=== PATIENT | male | born 1970 | race Asian ===

== ENCOUNTER 2018-09-26 13:55 | Day surgery (SDC) | payer OTHER, SELFPAY ==
[2018-09-26] VITALS (9 sets, daily range): BP systolic 98–133; BP diastolic 69–90; PULSE 63–83; RESP 10–19; TEMP 36.6–36.8; O2SAT 95–99; BMI 24.3
[2018-09-26] MEDS: SODIUM CHLORIDE 0.9% 1,000 ML 200 ML IV (14:14)
--- NOTE | 2018-09-26 14:39 | P.HP_ITS ---
History of Present Illness Date Patient Seen: 09/26/18 Time Patient Seen: 14:37 Chief complaint: 28133 SCREENING COLONOSCOPY Narrative: Naeem is pleasant 48-year-old gentleman who is well known to me from past counters. In March of 2017 he had a colonoscopy that revealed of right cecal mass and an additional cecal polyp. He subsequently underwent a right hemicolectomy and primary anastomosis followed by a liver resection for a solitary metastasis. He has since been taking chemotherapy and tolerating it reasonably well. His reports that he is down to an every other week infusion. He denies any problems with the prep. He reports that his 's ? crazy driving? caused him to throw up on the way here. He says his weight is stable. He is suffering with some neuropathy symptoms following chemotherapy. Patient History Family & Social History Family History: Reviewed 09/26/18 by Anayeli Powell MD Social History: household members spouse Meds Home Medications Medication Instructions Recorded Confirmed Type melatonin 5 mg PO HS #0 06/02/17 09/26/18 History nicotine 14 mg TOPICAL QDAY #30 patch 02/21/18 09/26/18 Rx oxycodone 1 tab PO Q4HP PRN 07/26/18 09/26/18 History lorazepam 0.5 mg PO Q6HP PRN 08/30/18 09/26/18 History Allergies Allergy/AdvReac Type Severity Reaction Status Date / Time No Known Drug Allergies Allergy Verified 03/07/18 15:04 Review of Systems Review of Systems All systems reviewed & are unremarkable except as noted in HPI and below Exam Vital Signs (past 8 hours): - 09/26/18 14:06 Temperature 98.0 F Pulse Rate 70 Respiratory Rate 16 Blood Pressure 133/90 Pulse Oximetry 99 Oxygen Delivery Method Room Air Narrative Exam Narrative: Pleasant thin gentleman in no obvious distress HEENT: Normocephalic and atraumatic, pupils equal round reactive to light accommodation with anicteric sclera Lungs: Clear bilaterally Heart: Regular rate and rhythm Abdomen: Soft, multiple healed surgical incisions. Active bowel sounds Extremities: Warm well perfused Assessment & Plan Plan: Assessment/Plan Narrative: Personal history of colon cancer 1 year ago who presents for screening/ surveillance colonoscopy. We discussed the risks and benefits of the procedure the patient expressed a desire to complete it today.
[2018-09-26] MEDS: MIDAZOLAM 5 MG/5 ML VIAL IV (14:56)
[2018-09-26] MEDS: fentaNYL 250 MCG/5 ML INJ IV (14:56)
--- NOTE | 2018-09-26 15:03 | PM.OP.1 ---
Operative Date/Time/Diagnoses Date of procedure: 09/26/18 Time of procedure: 15:03 Pre-op diagnosis: Personal history of colon cancer Post-op diagnosis: same Procedure & Clinicians Procedure: Colonoscopy to the right upper quadrant ileocolic anastomosis Same procedure as scheduled: Yes Indications: Last colonoscopy approximately 18 months ago Surgeon: Anayeli Powell Anesthesia Type: Sedation (Versed 6 mg; fentanyl 200 mcg) Operative Notes Findings: 1. Excellent prep 2. No polyps or mass lesions 3. No AV malformations 4. Anastomosis identified at the hepatic flexure. No evidence of any recurrence. Anastomosis is in good repair and widely patent. 5. Tortuous transverse colon 6. Very minimal sigmoid diverticulosis 7. Grade 1-2 internal hemorrhoids Closure Type: not applicable Specimen(s): none sent Procedure in detail: After obtaining informed consent, the patient was brought to the GI suite and placed in the left lateral decubitus position on the examination table. After placement of appropriate monitors, the patient was given incremental doses of Versed and Fentanyl until an appropriate level of sedation was achieved. A time out was held per SCOAP protocol. A digital rectal examination was performed and did not reveal any masses or obstructing lesions. The colonoscope was gently passed into the patient's anus and the entire colon navigated to the level of the ileocolic anastomosis with minimal difficulty. Once in the anastomosis had been reached and identified clearly, the scope was withdrawn being sure to go before and beyond all mucosal folds and prominences and get an excellent examination. The findings are noted above. At the level of the rectal vault, the scope was retroflexed and the internal anal canal was examined. The scope was straightened and air aspirated from the colon. The instrument was removed from the patient's body and the procedure was concluded. The patient was allowed to awaken from sedation without difficulty and taken to the post-anesthesia care unit in good condition. Total sedation time was 16 min Total withdrawal time was 8 min 14 sec Complications: none Condition: stable Disposition: PACU Plan for aftercare: 1. Discharge to home 2. Repeat colonoscopy in 1 year.
== END 2018-09-26 16:12 | disposition home or self-care (01) ==
PROVIDERS: Visit Provider Surgery
PROC: 0DJD8ZZ Inspection of Lower Intestinal Tract, Via Natural or Artificial Opening Endoscopic (ICD-10-PCS; CPT 45378; principal; 2018-09-26 14:45)
DX: Z85.038 Personal history of other malignant neoplasm of large intestine (principal); K57.30 Diverticulosis of large intestine without perforation or abscess without bleeding; K64.1 Second degree hemorrhoids
CPT/HCPCS: 45378; 99152; J2250; J3010

== ENCOUNTER → 2019-02-21 09:37 | Outpatient (CLI) | payer OTHER, SELFPAY | DX: C18.9 Malignant neoplasm of colon, unspecified (principal) ==

== ENCOUNTER → 2019-02-27 08:28 | Outpatient (CLI) | payer OTHER, SELFPAY ==
[2019-02-27 08:57] LABS: Add Manual Diff / Slide Review NO; Basophils Absolute Auto 200 /uL (0-100); Basophils Percent Auto 2.5 % (0-2); Eosinophils Absolute Auto 200 /uL (0-450); Eosinophils Percent Auto 2.8 % (2-4); Hematocrit 39.5 % (41-53); Hemoglobin 13.2 g/dL (13.5-17.5); Lymphocytes Absolute Auto 2300 /uL (1100-4500); Lymphocytes Percent Auto 36.7 % (25-40); Mean Corpuscular HGB Conc 33.5 % (30-36); Mean Corpuscular Hemoglobin 29.2 PG (26-34); Mean Corpuscular Volume 87.3 fL (80-100); Monocytes Absolute Auto 400 /uL (0-900); Monocytes Percent Auto 6.3 % (3-14); Neutrophils Absolute Auto 3300 /uL (1500-7000); Neutrophils Percent Auto 51.7 % (50-75); Platelet Count 127 X10^3/uL (150-400); Red Blood Cell Count 4.53 X10^6/uL (4.5-5.9); Red Cell Distribution Width 13.3 % (11.6-14.8); White Blood Cell Count 6.3 X10^3/uL (4.5-11.0)
[2019-02-27 09:12] LABS: Alanine Aminotransferase 23 IU/L (21-72); Albumin 4.2 g/dL (3.5-5.0); Albumin Globulin Ratio 1.7 (1.0-2.8); Alkaline Phosphatase 43 U/L (38-126); Aspartate Aminotransferase 28 IU/L (17-59); BUN Creatinine Ratio 17.3 (6-22); Bilirubin Total 0.5 mg/dL (0.2-1.3); Blood Urea Nitrogen 19 mg/dL (9-20); Calcium 8.7 mg/dL (8.4-10.2); Carbon Dioxide 24 mmol/L (22-32); Chloride 105 mmol/L (98-107); Estimated Glomerular Filt Rate > 60.0 mL/min (>60); Globulin 2.5 g/dL (1.7-4.1); Glucose 87 mg/dL (70-100); HEMOLYSIS < 15 (0-50); Potassium 4.4 mmol/L (3.4-5.1); Sodium 137 mmol/L (137-145); Total Protein 6.7 g/dL (6.3-8.2)
[2019-02-27 09:42] LABS: Carcinoembryonic Antigen 3.4 ng/mL (0.1-3.0)
--- NOTE | 2019-02-27 09:56 | DI.CT.S_ITS ---
PROCEDURE: CT CHEST ABD PEL W CON INDICATIONS: surveillance for stage 4 colon cancer TECHNIQUE: After the administration of oral and intravenous contrast, 5 mm thick sections acquired from the lung apices to the symphysis. 5 mm coronal and sagittal reformats were performed, with additional 7 mm coronal MIP reformats through the lungs. For radiation dose reduction, the following was used: automated exposure control, adjustment of mA and/or kV according to patient size. COMPARISON: [facility], [place], KIDNEY/ URETER/BLADDER, 03/22/2017, 19:02. [facility], [place], PET NECK TO MID THIGH STD, 04/12/2017, 9:41. [facility], [place], ABDOMEN WITH CONTRAST, 06/29/2017, 10:46. FINDINGS: Image quality: Excellent. CHEST: Lungs and pleura: No acute airspace opacities. No pleural effusions or pneumothorax. Central and peripheral airways appear patent and normal in caliber. Mediastinum: Heart size is normal. No pericardial effusion. No mediastinal or hilar adenopathy by size criteria. Thoracic aorta and central pulmonary arteries are normal in size. Esophagus is normal in caliber. No hiatal hernia. Chest wall: No axillary or supraclavicular adenopathy by size criteria. Thyroid gland is normal. ABDOMEN: Solid organs: There are surgical clips/or coil within the liver near the hepatic dome and the gallbladder fossa where 2 hepatic masses were visualized on the last exam, compatible with posttreatment changes. A tiny 3 mm indeterminate hypodensity is noted in the right hepatic lobe (series 2 image 70). Liver is normal in size and enhancement. Gallbladder is normal. Biliary system is non dilated. Pancreas enhances normally. Spleen is normal in size and enhancement. No adrenal nodules. Kidneys demonstrate normal size and enhancement, without hydronephrosis. Peritoneum and bowel: There is partial right colectomy. Scattered colonic diverticula are seen in the left colon. Bowel loops demonstrate normal wall thickness and caliber. No free fluid or air. Nodes and vessels: No retroperitoneal or mesenteric adenopathy by size criteria. Aorta and inferior vena cava are normal in size. Miscellaneous: No ventral hernias. PELVIS: Genitourinary: Bladder wall thickness is normal. Miscellaneous: No inguinal hernias or adenopathy. Bones: No suspicious bony lesions. No vertebral body compression fractures. IMPRESSION: 1. Posttreatment changes in liver. 2. There is a tiny 3 mm indeterminate hypodensity in the right hepatic lobe (series 2 image 70), not definitively visualized on the last exam. Differential diagnoses include a small hepatic cyst, hemangioma or metastatic disease. Please correlate with markers. If there is clinical suspicion for recurrent colon cancer metastasis, MRI is recommended. 3. Right hemicolectomy. 4. Mild diverticulosis without acute diverticulitis. Dictated by: Gilda Martins M.D. on 02/27/2019 at 12:54 Approved by: Gilda Martins M.D. on 02/27/2019 at 17:50
== END ==
DX: C18.9 Malignant neoplasm of colon, unspecified (principal); R16.0 Hepatomegaly, not elsewhere classified; K57.30 Diverticulosis of large intestine without perforation or abscess without bleeding
CPT/HCPCS: 36415; 71260; 74177; 80053; 82378; 85025; Q9967

== ENCOUNTER 2019-07-05 11:47 | Emergency (ER) | payer OTHER, SELFPAY ==
[2019-07-05 11:54] VITALS: BP 137/88; PULSE 84; RESP 14; TEMP 36.7; O2SAT 98; BMI 24.3
--- NOTE | 2019-07-05 11:59 | DI.RAD.S_ITS ---
PROCEDURE: XR CALCANEOUS RT MIN 2V INDICATIONS: pain TECHNIQUE: Two views of the calcaneus were acquired. COMPARISON: None. FINDINGS: Bones: Irregularity and lucency in the posterior calcaneus has the appearance of a subacute or chronic comminuted fracture. No suspicious bony lesions. Soft tissues: No suspicious calcifications. Achilles tendon appears normal. IMPRESSION: Probable subacute or chronic comminuted calcaneal fracture. Dictated by: Finn Harrington M.D. on 07/05/2019 at 12:33 Approved by: Finn Harrington M.D. on 07/05/2019 at 12:37
--- NOTE | 2019-07-05 11:59 | DI.RAD.S_ITS ---
PROCEDURE: XR FOOT RT MIN 3V INDICATIONS: pain TECHNIQUE: 3 views of the foot were acquired. COMPARISON: Same day right calcaneal radiographs. FINDINGS: Bones: No fractures or dislocations in the mid or forefoot. Calcaneal fracture. Mild degenerative change. Bipartite medial sesamoid bone. Accessory ossicle proximal to the base of the fifth metatarsal. No suspicious bony lesions. Soft tissues: No tibiotalar joint effusion. Achilles tendon appears normal. IMPRESSION: No acute osseous abnormality. Please see separately dictated calcaneal examination. Dictated by: Finn Harrington M.D. on 07/05/2019 at 12:37 Approved by: Finn Harrington M.D. on 07/05/2019 at 13:06
[2019-07-05 12:00] VITALS: BP 129/79; PULSE 71; RESP 16; O2SAT 98
--- NOTE | 2019-07-05 12:51 | PC.NURSE ---
pt reports , fell from the top of truck (10foot), tripped over a hose, landing on his right heel. denies loc, denies neck or back pain. denies other injuries. no treatment travel pta. occured approx at 1100
[2019-07-05] MEDS: HYDROMORPHONE 1 MG INJ IM (13:00)
--- NOTE | 2019-07-05 13:15 | ED_ITS ---
HPI - Extremity Injury (Lower) <Niurka López PA-C - Last Filed: 07/05/19 18:48> General Chief Complaint: Extremity Injury, Lower Stated Complaint: FELL OFF TRUCK Time Seen by Provider: 07/05/19 13:09 Source: patient Mode of arrival: wheelchair Limitations: no limitations History of Present Illness HPI Narrative: This 49-year-old male was working on a tall flat bed truck standing on top of the tank when the hose caught and caused him to fall sideways. He states he tried to get to the dirt, came down with his left foot in the dirt, but right foot came down hard and awkward angle on hard surface. He states he immediately had pain in his heel and Achilles area. He states it is exquisitely tender to walk or touch. He states pain radiates up further into the leg, but he does not have any pain higher up in the leg or knee otherwise. He states that he rolled over in the dirt, denies any pain in his spine, any head contusion or LOC. He states that years ago he had sprains and tendon tears he thinks in that he will, maybe more than 10 years ago, no history of fracture or Achilles tear that he knows of Related Data Previous Rx's Medication Instructions Recorded naproxen 500 mg PO Q12H #20 tab 07/05/19 oxycodone-acetaminophen [Percocet] 1 tab PO Q4H PRN #15 tab 07/05/19 Allergies Allergy/AdvReac Type Severity Reaction Status Date / Time No Known Drug Allergies Allergy Verified 07/05/19 11:54 Review of Systems <Niurka López PA-C - Last Filed: 07/05/19 18:48> Review of Systems ROS Unobtainable: All systems reviewed & are unremarkable except as noted in HPI and below PFSH <Niurka López PA-C - Last Filed: 07/05/19 18:48> Medical History (Updated 07/05/19 @ 15:47 by Niurka López PA-C) GERD (gastroesophageal reflux disease) (Chronic) Malignant neoplasm of colon (Chronic) Surgical History (Updated 07/05/19 @ 13:43 by Niurka López PA-C) History of neck surgery (Resolved) History of surgery of liver (Resolved) S/P colon resection (Resolved) Social History household members: spouse Social History household members: spouse Comment: daily tob Exam <Niurka López PA-C - Last Filed: 07/05/19 18:48> Narrative Exam Narrative: GENERAL APPEARANCE: Patient sitting comfortably, in no distress. LUNGS: Clear to auscultation bilaterally. HEART: Rate and rhythm regular without murmur, normal S1 and S2, no S3 or S4. DERMATOLOGIC: Right lower extremity no abrasions or ecchymoses MUSCULOSKELETAL: Right lower extremity no effusion. Exquisitely tender over the right posterior heel and Achilles which feels intact by palpation. Limited dorsiflexion and plantar flexion secondary to tenderness. No tenderness over the tib-fib or right knee NEUROVASCULAR: Right pedal pulses 2+, sensation grossly intact Initial Vital Signs Initial Vital Signs: Vital Signs Temperature 98.1 F 07/05/19 11:54 Pulse Rate 84 07/05/19 11:54 Respiratory Rate 14 07/05/19 11:54 Blood Pressure 137/88 07/05/19 11:54 Pulse Oximetry 98 07/05/19 11:54 <Maris Whyte MD - Last Filed: 07/06/19 08:18> Initial Vital Signs Initial Vital Signs: Vital Signs Temperature 98.1 F 07/05/19 11:54 Pulse Rate 84 07/05/19 11:54 Respiratory Rate 14 07/05/19 11:54 Blood Pressure 137/88 07/05/19 11:54 Pulse Oximetry 98 07/05/19 11:54 Course <Niurka López PA-C - Last Filed: 07/05/19 18:48> Course Additional Information: Spoke with Dr. Jimenez, podiatry/orthopedics who advised joint generally appears intact on CT, unlikely to need surgery. Advised splinting and nonweightbearing and he will follow up in the office next week. Posterior splint applied. Splint appeared stable, patient reported comfortable and toes were warm and pink with brisk cap refill, sensation grossly intact. Crutch training given. Orders Ordered: Discontinued Medications Hydromorphone HCl (Dilaudid) 1 mg IM NOW ONE Stop: 07/05/19 12:57 Last Admin: 07/05/19 13:00 Dose: 1 mg Documented by: XAVIER Vital Signs Vital signs: Vital Signs - 8 hr 07/05/19 11:54 07/05/19 12:00 07/05/19 14:30 Temperature 98.1 F Pulse Rate 84 71 61 Respiratory Rate 14 16 18 Blood Pressure 137/88 Blood Pressure [Left Arm] 129/79 128/88 Pulse Oximetry 98 98 07/05/19 14:55 07/05/19 15:15 07/05/19 15:30 Temperature Pulse Rate 60 60 61 Respiratory Rate 16 18 18 Blood Pressure Blood Pressure [Left Arm] 128/88 136/83 131/90 Pulse Oximetry 97 98 99 <Maris Whyte MD - Last Filed: 07/06/19 08:18> Orders Ordered: Discontinued Medications Hydromorphone HCl (Dilaudid) 1 mg IM NOW ONE Stop: 07/05/19 12:57 Last Admin: 07/05/19 13:00 Dose: 1 mg Documented by: XAVIER Vital Signs Vital signs: Vital Signs - 8 hr 07/05/19 11:54 07/05/19 12:00 07/05/19 14:30 Temperature 98.1 F Pulse Rate 84 71 61 Respiratory Rate 14 16 18 Blood Pressure 137/88 Blood Pressure [Left Arm] 129/79 128/88 Pulse Oximetry 98 98 07/05/19 14:55 07/05/19 15:15 07/05/19 15:30 Temperature Pulse Rate 60 60 61 Respiratory Rate 16 18 18 Blood Pressure Blood Pressure [Left Arm] 128/88 136/83 131/90 Pulse Oximetry 97 98 99 MDM - Extremity Injury (Lower) <Niurka López PA-C - Last Filed: 07/05/19 18:48> Imaging Data foot and heel: Radiologist's impression: [address] [address] XRay Report Signed Patient: Naeem Parnell HMR#: [id number] : 1970Acct:[id number] Age/Sex: 49 / MDate of Service: 07/05/19 Loc: ED Accession Number: [id number] Procedure: XR calcaneus RT min 2V Ordering Provider: Maris Whyte MD PROCEDURE: XR CALCANEOUS RT MIN 2V INDICATIONS: pain TECHNIQUE: Two views of the calcaneus were acquired. COMPARISON: None. FINDINGS: Bones: Irregularity and lucency in the posterior calcaneus has the appearance of a subacute or chronic comminuted fracture. No suspicious bony lesions. Soft tissues: No suspicious calcifications. Achilles tendon appears normal. IMPRESSION: Probable subacute or chronic comminuted calcaneal fracture. Dictated by: Finn Harrington M.D. on 07/05/2019 at 12:33 Approved by: Finn Harrington M.D. on 07/05/2019 at 12:[address] [address] XRay Report Signed Patient: Naeem Parnell R#: [id number] : 1970Acct:[id number] Age/Sex: 49 / MDate of Service: 07/05/19 Loc: ED Accession Number: [id number] Procedure: XR foot RT min 3V Ordering Provider: Maris Whyte MD PROCEDURE: XR FOOT RT MIN 3V INDICATIONS: pain TECHNIQUE: 3 views of the foot were acquired. COMPARISON: Same day right calcaneal radiographs. FINDINGS: Bones: No fractures or dislocations in the mid or forefoot. Calcaneal fracture. Mild degenerative change. Bipartite medial sesamoid bone. Accessory ossicle proximal to the base of the fifth metatarsal. No suspicious bony lesions. Soft tissues: No tibiotalar joint effusion. Achilles tendon appears normal. IMPRESSION: No acute osseous abnormality. Please see separately dictated calcaneal examination. Dictated by: Finn Harrington M.D. on 07/05/2019 at 12:37 Approved by: Finn Harrington M.D. on 07/05/2019 at 13:[address]: Radiologist's impression: Naeem Parnell 49 M [address] [address] [address] Scan Report Signed Patient: Naeem Parnell R#: [id number] : 1970Acct:[id number] Age/Sex: 49 / MDate of Service: 07/05/19 Loc: ED Accession Number: [id number] Procedure: CT LE RT wo con Ordering Provider: Niurka López P.A-C PROCEDURE: CT LE RT WO CON INDICATIONS: calcaneous fx, joint involvement? TECHNIQUE: Noncontrast 1-1.5 mm axial sections acquired from above the tibiotalar joint to the bottom of the calcaneus, with coronal and sagittal reformats. COMPARISON: [facility], [place], XR CALCANEOUS RT MIN 2V, 07/05/2019, 12:00. [facility], [place], XR FOOT RT MIN 3V, 07/05/2019, 12:00. FINDINGS: Image quality: Excellent. Bones: There is a comminuted fracture of the calcaneus with oblique longitudinal and transverse components. The fracture extends to the posterior facet of the subtalar joint medially. No subluxation or definite joint space widening. Fracture also extends to the posterior calcaneus adjacent to the insertion of the Achilles tendon. Remaining visualized osseous structures appear intact. Soft tissues: There is associated subcutaneous edema along the posterior and plantar aspects of the hindfoot. The flexor, extensor, peroneal, and [place]'s tendons appear intact. No tibiotalar joint effusion. There is a likely small subtalar joint effusion. IMPRESSION: 1. Comminuted fracture of the calcaneus extending to the posterior facet of the subtalar joint. Dictated by: Noam Boucher M.D. on 07/05/2019 at 15:08 Approved by: Noam Boucher M.D. on 07/05/2019 at 15:25 Discharge Plan Departure Patient Disposition: Home Clinical Impression: Heel fracture Qualifiers: Encounter type: initial encounter Calcaneus location: unspecified portion of calcaneus Fracture type: closed Fracture alignment: nondisplaced Laterality: right Qualified Code(s): S92.001A - Unspecified fracture of right calcaneus, initial encounter for closed fracture Discharge Date/Time: 07/05/19 16:33 Instructions: DI for Foot Fracture Activity Restrictions/Additional Instructions: You need to be completely nonweightbearing on your right foot and heel. You have a broken bone at the base of your heel and is important that there is no pressure on this, so keep the splint on and use the crutches at all times. Start the prescription for naproxen, and you can also use the oxycodone/acetaminophen as needed for pain (do not drive as this may make you sleepy). You may need to take a stool softener with this as well as pain medicine can make you constipated. As we talked about, you should return if you have any acutely worsening symptoms or new symptoms such as numbness or problems with your splint Prescriptions: New oxycodone-acetaminophen [Percocet] 5-325 mg tablet 1 tab PO Q4H PRN (Reason: pain) Qty: 15 RF: 0 naproxen 500 mg tablet 500 mg PO Q12H Qty: 20 RF: 0 Referrals: Valerio Jimenez DPM [Physician] - Williams Boggs MD [Primary Care Provider] -
--- NOTE | 2019-07-05 14:29 | DI.CT.S_ITS ---
PROCEDURE: CT LE RT WO CON INDICATIONS: calcaneous fx, joint involvement? TECHNIQUE: Noncontrast 1-1.5 mm axial sections acquired from above the tibiotalar joint to the bottom of the calcaneus, with coronal and sagittal reformats. COMPARISON: [facility], CR, XR CALCANEOUS RT MIN 2V, 07/05/2019, 12:00. [facility], CR, XR FOOT RT MIN 3V, 07/05/2019, 12:00. FINDINGS: Image quality: Excellent. Bones: There is a comminuted fracture of the calcaneus with oblique longitudinal and transverse components. The fracture extends to the posterior facet of the subtalar joint medially. No subluxation or definite joint space widening. Fracture also extends to the posterior calcaneus adjacent to the insertion of the Achilles tendon. Remaining visualized osseous structures appear intact. Soft tissues: There is associated subcutaneous edema along the posterior and plantar aspects of the hindfoot. The flexor, extensor, peroneal, and [place]'s tendons appear intact. No tibiotalar joint effusion. There is a likely small subtalar joint effusion. IMPRESSION: 1. Comminuted fracture of the calcaneus extending to the posterior facet of the subtalar joint. Dictated by: Noam Boucher M.D. on 07/05/2019 at 15:08 Approved by: Noam Boucher M.D. on 07/05/2019 at 15:25
[2019-07-05 14:30] VITALS: BP 128/88; PULSE 61; RESP 18
[2019-07-05 14:55] VITALS: BP 128/88; PULSE 60; RESP 16; O2SAT 97
[2019-07-05 15:15] VITALS: BP 136/83; PULSE 60; RESP 17; RESP 18; O2SAT 98
[2019-07-05 15:30] VITALS: BP 131/90; PULSE 61; RESP 18; O2SAT 99
--- NOTE | 2019-07-05 16:12 | PC.NURSE ---
with pair of crutches.
== END 2019-07-05 16:33 | disposition home or self-care (01) ==
PROVIDERS: Emergency Provider Internal Medicine
DX: S92.001A Unspecified fracture of right calcaneus, initial encounter for closed fracture (principal); W17.89XA Other fall from one level to another, initial encounter; Y99.0 Civilian activity done for income or pay
CPT/HCPCS: 73630; 73650; 73700; 96372; 99283; J1170

== ENCOUNTER → 2019-10-09 14:04 | Outpatient (CLI) | payer OTHER, SELFPAY ==
--- NOTE | 2019-10-09 14:06 | DI.CT.S_ITS ---
PROCEDURE: CT CHEST ABD PEL W CON INDICATIONS: Stage 4 colon cancer follow up TECHNIQUE: After the administration of oral and intravenous contrast, 5 mm thick sections acquired from the lung apices to the symphysis. 5 mm coronal and sagittal reformats were performed, with additional 7 mm coronal MIP reformats through the lungs. For radiation dose reduction, the following was used: automated exposure control, adjustment of mA and/or kV according to patient size. COMPARISON: [facility], CT, CT CHEST ABD PEL W CON, 02/27/2019, 9:36. FINDINGS: Image quality: Excellent. CHEST: Lungs and pleura: No acute airspace opacities. No pleural effusions or pneumothorax. Central and peripheral airways appear patent and normal in caliber. Mediastinum: Heart size is normal. No pericardial effusion. No mediastinal or hilar adenopathy by size criteria. Thoracic aorta and central pulmonary arteries are normal in size. Esophagus is normal in caliber. No hiatal hernia. Chest wall: No axillary or supraclavicular adenopathy by size criteria. Thyroid gland is normal. Tunneled left port device is in place with the distal tip projecting in the lower superior vena cava. ABDOMEN: Solid organs: Liver is normal in size and enhancement. Redemonstration of 3 mm hypodensity involving the anterior margin of the right hepatic lobe (image 68, series 2). This is again too small to accurately characterize. Multiple surgical clips are again noted in the liver compatible with prior treatment changes. These are noted in the hepatic dome and the posterior margin of the inferior right hepatic lobe. No new hepatic lesions identified. Gallbladder is unremarkable. Biliary system is non dilated. Pancreas enhances normally. Spleen is normal in size and enhancement. No adrenal nodules. Kidneys demonstrate normal size and enhancement, without hydronephrosis. Stable bilateral renal cysts. Peritoneum and bowel: Bowel loops demonstrate normal wall thickness and caliber. Stable postsurgical changes from prior right hemicolectomy. No symmetric bowel wall thickening. There are scant colonic diverticula without acute diverticulitis. No free fluid or air. Nodes and vessels: No retroperitoneal or mesenteric adenopathy by size criteria. Aorta and inferior vena cava are normal in size. Miscellaneous: No ventral hernias. PELVIS: Genitourinary: Bladder wall thickness is normal. Miscellaneous: No inguinal hernias or adenopathy. Bones: No suspicious bony lesions. No vertebral body compression fractures. IMPRESSION: 1. CT chest, abdomen, and pelvis without acute abnormalities. 2. Stable post treatment changes of the liver. 3. Right hemicolectomy. 4. Scant colonic diverticulosis without acute diverticulitis. 5. Redemonstration of a stable 3 mm peripheral right hepatic lobe hypodensity which is again too small to characterize. As before, differential considerations include small hepatic cyst, hepatic hemangioma, or possible metastatic disease. Dictated by: Nate German M.D. on 10/09/2019 at 18:14 Approved by: Nate German M.D. on 10/09/2019 at 18:25
== END ==
DX: C18.9 Malignant neoplasm of colon, unspecified (principal); K57.90 Diverticulosis of intestine, part unspecified, without perforation or abscess without bleeding
CPT/HCPCS: 71260; 74177; Q9967

== ENCOUNTER → 2020-03-17 13:50 | Outpatient (CLI) | payer OTHER, SELFPAY ==
--- NOTE | 2020-03-17 | DI.RAD.S_ITS ---
PROCEDURE: FL CATHETER PATENCY COMPARISON: None. INDICATIONS: Malignant neoplasm of ascending colon FINDINGS: Normal examination. Patent catheter, now sided catheter leaked. Catheter tip in normal position. IMPRESSION: Normal examination. Dictated by: Martinez Block M.D. on 03/18/2020 at 16:49 Approved by: Martinez Block M.D. on 03/18/2020 at 16:50
== END ==
PROVIDERS: Referring Provider Internal Medicine Hematology & Oncology; Visit Provider Internal Medicine Hematology & Oncology
DX: Z45.2 Encounter for adjustment and management of vascular access device (principal); C18.2 Malignant neoplasm of ascending colon
CPT/HCPCS: 76000

== ENCOUNTER → 2020-05-16 07:52 | Outpatient (CLI) | payer OTHER, SELFPAY ==
--- NOTE | 2020-05-16 07:53 | DI.CT.S_ITS ---
PROCEDURE: CT CHEST ABD PEL W CON INDICATIONS: metastatic colon cancer TECHNIQUE: After the administration of oral and intravenous contrast, 5 mm thick sections acquired from the lung apices to the symphysis. 5 mm coronal and sagittal reformats were performed, with additional 7 mm coronal MIP reformats through the lungs. For radiation dose reduction, the following was used: automated exposure control, adjustment of mA and/or kV according to patient size. COMPARISON: [facility], CT, CT CHEST ABD PEL W CON, 02/27/2019, 9:36. [facility], CT, CT CHEST ABD PEL W CON, 10/09/2019, 15:07. FINDINGS: Image quality: Excellent. CHEST: Lungs and pleura: No acute airspace opacities. No pleural effusions or pneumothorax. Central and peripheral airways appear patent and normal in caliber. Mediastinum: Heart size is normal. No pericardial effusion. No mediastinal or hilar adenopathy by size criteria. Thoracic aorta and central pulmonary arteries are normal in size. Esophagus is normal in caliber. No hiatal hernia. Chest wall: No axillary or supraclavicular adenopathy by size criteria. Thyroid gland is unremarkable. Tunneled left port device is again noted with the distal tip projecting within the lower SVC. ABDOMEN: Solid organs: Liver is normal in size and enhancement. Previously described 3 mm peripheral right lower lobe hypodensity appears slightly less conspicuous and may be related to slight differences in imaging technique. It is best seen on image 70, series 2. Multiple coils are again noted in the hepatic dome, compatible with prior treatment changes. No new or suspicious intrahepatic lesions identified on today's study. Gallbladder is unremarkable. Biliary system is non dilated. Pancreas enhances normally. Spleen is normal in size and enhancement. No adrenal nodules. Kidneys demonstrate normal size and enhancement, without hydronephrosis. Stable bilateral renal cysts. Peritoneum and bowel: Bowel loops demonstrate normal wall thickness and caliber. No free fluid or air. Scant colonic diverticula without acute diverticulitis. Stable post treatment changes from prior right hemicolectomy. Nodes and vessels: No retroperitoneal or mesenteric adenopathy by size criteria. Aorta and inferior vena cava are normal in size. Miscellaneous: No ventral hernias. PELVIS: Genitourinary: Bladder wall thickness is normal. Miscellaneous: No inguinal hernias or adenopathy. Bones: No suspicious bony lesions. No vertebral body compression fractures. IMPRESSION: 1. CT chest, abdomen, and pelvis without acute abnormalities. 2. Redemonstration of stable 3 mm peripheral right hepatic lobe hypodensity which is too small to accurately characterize. Differential includes small hepatic cyst, hepatic hemangioma, or possible metastatic disease. Otherwise, no other CT evidence for disease recurrence or metastatic disease. 3. Stable post treatment changes from right hemicolectomy and hepatic dome. 4. Scant colonic diverticulosis without acute diverticulitis. Dictated by: Nate German M.D. on 05/16/2020 at 10:08 Approved by: Nate German M.D. on 05/16/2020 at 10:23
== END ==
PROVIDERS: Referring Provider Internal Medicine Hematology & Oncology; Visit Provider Internal Medicine Hematology & Oncology
DX: C18.9 Malignant neoplasm of colon, unspecified (principal); N28.1 Cyst of kidney, acquired; K57.30 Diverticulosis of large intestine without perforation or abscess without bleeding
CPT/HCPCS: 71260; 74177

== ENCOUNTER → 2020-07-25 10:35 | Outpatient (CLI) | payer OTHER, SELFPAY ==
--- NOTE | 2020-07-25 10:36 | DI.US.S_ITS ---
PROCEDURE: US ABDOMEN COMPLETE INDICATIONS: HISTORY COLON CA; RIGHT FLANK PAIN. Two liver lesions resected. TECHNIQUE: Real-time scanning was performed of the abdominal and retroperitoneal organs, with image documentation. COMPARISON: [facility], CT, CT CHEST ABD PEL W CON, 05/16/2020, 9:06. FINDINGS: Liver: Liver is normal in size and homogeneous in echotexture except in the area of prior surgical resection well visualized by CT scanning as clustered surgical clips where pull over machine operator time has not developed. The appearance with echogenicity and shadowing is present, as expected, given the surgical clips present. Gallbladder: Normal. Biliary ducts: Intrahepatic bile ducts are non-dilated. Extrahepatic bile duct caliber measures 4.2 mm. Normal is 6-7 mm or less in diameter, or 10 mm or less post-cholecystectomy. Pancreas: Visualized portions of the pancreas are sonographically normal. Spleen: Spleen is normal in size and homogeneous in echotexture. Kidneys: Kidneys are normal in size and echotexture. Right kidney measures 11.4 cm long; left kidney measures 10.9 cm long. No hydronephrosis or nephrolithiasis. No solid masses. There is a minimally complex cyst at the right kidney. Aorta: Visualized aorta is normal in caliber at less than 3 cm. Iliacs: Proximal common iliac arteries are normal in caliber at less than 2.5 cm. IVC: Intrahepatic inferior vena cava is patent. Miscellaneous: No free abdominal fluid. IMPRESSION: Expected sonographic appearance of 2 sites of prior liver mass lesion resections represented on prior CT scanning as clustered multiple metallic surgical clips. No solid mass lesion is found, no adenopathy is seen. No sonographic evidence of new metastatic disease is identified. Dictated by: Martinez Block M.D. on 07/25/2020 at 11:38 Approved by: Martinez Block M.D. on 07/25/2020 at 11:42
== END ==
PROVIDERS: Referring Provider Internal Medicine Hematology & Oncology; Visit Provider Internal Medicine Hematology & Oncology
DX: C18.2 Malignant neoplasm of ascending colon (principal); R79.89 Other specified abnormal findings of blood chemistry
CPT/HCPCS: 76700

== ENCOUNTER → 2020-08-01 15:09 | Outpatient (CLI) | payer OTHER, SELFPAY ==
[2020-08-01 19:58] LABS: COVID19 -Nasal RAPID Negative (Negative)
== END ==
PROVIDERS: Visit Provider Nurse Practitioner
DX: Z11.59 Encounter for screening for other viral diseases (principal)
CPT/HCPCS: 87635

== ENCOUNTER 2020-08-04 07:26 | Day surgery (SDC) | payer OTHER, SELFPAY ==
--- NOTE | 2020-08-04 | PATH_ITS ---
[facility] Accession Number: [id number] . 01 Material submitted: . colon - ANASTOMOTIC POLYP . 02 Diagnosis: Colon, Anastomotic Polyp, Biopsy: Colonic mucosa with prominent benign lymphoid aggregate. Negative for serrated lesion, dysplasia or malignancy. Additional step sections examined. MRV 08/07/2020 1226 Local . 02 Electronically signed: . Adria Cox MD, PhD, Pathologist NPI- [id number] . 01 Gross description: . The specimen is received in formalin, labeled anastomotic polyp and consists of a 0.3 x 0.2 x 0.2 cm hayden fragments of soft tissue, which is entirely submitted in cassette A1. ([id number]) /[facility] 08/05/2020 1734 Local . 02 Pathologist provided ICD-10: Z85.038, K63.5 . 02 CPT . 626589 Performed at: 01 [facility] [address] [facility] [place], [place], [place] [id number] MD Noam Silva MD Phone: [phone] Performed at: [address] [facility] [place] [address] [place], [place] [id number] MD Luzmaria Patel MD Phone: [phone]
[2020-08-04 07:45] VITALS: BP 124/87; PULSE 66; TEMP 37; O2SAT 100
[2020-08-04 07:46] VITALS: BMI 22.4
--- NOTE | 2020-08-04 08:25 | PM.HP.1 ---
History of Present Illness History of Present Illness Date Patient Seen: 08/04/20 Time Patient Seen: 08:25 Chief complaint: SDC Narrative: 50-year-old male with a history of metastatic colon cancer here for a screening colonoscopy. Had a right hemicolectomy March 2017 for adenocarcinoma followed by a hepatic resection 07/2017. He says his last colonoscopy was 1 year ago and normal at that time. He is followed by Dr. Pineda of Oncology. No new change in bowel habits, diarrhea, constipation, melena, hematochezia, or bright red blood per rectum. Patient History Medical History GERD (gastroesophageal reflux disease) (Chronic) Malignant neoplasm of colon (Chronic) Sleep apnea (Acute) Surgical History H/O right hemicolectomy (Acute) History of surgery of liver (Resolved) S/P cervical spinal fusion (Acute) Family & Social History Social History: household members spouse Tobacco & Substance use: Tobacco type cigarettes Smoking Status Current every day smoker Smoking packs per day 0.3 alcohol intake frequency other Substance Use Type does not use Meds Home Medications and Allergies Home Medications Medication Instructions Recorded Confirmed Type naproxen 500 mg PO Q12H #20 tab 07/05/19 08/04/20 Rx oxycodone-acetaminophen [Percocet] 1 tab PO Q4H PRN #15 tab 07/05/19 08/04/20 Rx bevacizumab [Avastin] mg Q3W 08/04/20 History Allergies Allergy/AdvReac Type Severity Reaction Status Date / Time No Known Drug Allergies Allergy Verified 08/04/20 07:41 Review of Systems Review of Systems Narrative: A 10 point review of systems is negative except as noted in the HPI Exam Narrative Exam Narrative: General-no acute distress, well nourished adult male HEENT-moist mucous membranes, no scleral icterus Neck-supple, no lymphadenopathy Chest- non labored respirations, clear to auscultation bilaterally Cardiac-regular rate no peripheral edema Abdomen-soft, nontender, non distended Extremities-warm, well perfused Neurological-alert and oriented, no focal deficits Assessment & Plan Assessment and plan (1) Malignant neoplasm of colon: Problem details: 49year-old man with metastatic colon cancer. Status: Chronic Assessment & Plan narrative: The patient requires colorectal screening for history of metastatic colon cancer status post right hemicolectomy 2017 and colonoscopy is recommended. Technical details were discussed. Risks, benefits, alternatives explained. Risks including but not limited to myocardial infarction, aspiration, bleeding, pain, missed lesion, incomplete examination, need for further radiographic studies, colonic perforation, and need for major abdominal surgery were discussed. All questions were answered to their satisfaction, and they are in agreement with this plan.
[2020-08-04] MEDS: fentaNYL 250 MCG/5 ML INJ IV (08:44)
[2020-08-04] MEDS: MIDAZOLAM 5 MG/5 ML VIAL IV (08:45)
--- NOTE | 2020-08-04 08:55 | P.OP.ENDO_ITS ---
Operative Date/Time/Diagnoses Date of procedure: 08/04/20 Time of procedure: 08:55 Pre-op diagnosis: History of metastatic colon cancer Post-op diagnosis: same Procedure & Clinicians Study performed: Colonoscopy Same procedure as scheduled: Yes Indications: History of metastatic colon cancer status post right hemicolectomy 2016 Surgeon: Neri Bird Procedure Notes SCOAP/Timeout: Performed Procedure in detail: Patient placed in left lateral recumbent position. Time out was performed. Procedural sedation was administered with Versed and Fentanyl. Examination began with a thorough inspection of the perianal area there was no evidence of fissures, fistulae, external hemorrhoids or cutaneous malignancy. The colonoscopy scope was then placed into the rectum the the lumen was insufflated with air. The scope was carefully advanced forward. Ultimately the coloenteric anastomosis was identified. The scope was then slowly withdrawn examining colon thoroughly in all directions. In the rectum the rectal columns w ere identified and retroflexion of the scope was performed for inspection of the distal rectum and anal canal. The colonoscopy was notable for the followin. Quality of the preparation-good 2. <5 mm benign-appearing polyp on the colon side of the anastomosis was removed with biopsy forceps hemostasis was observed Scope withdrawal time: 9 Sedation minutes: 25 Findings: polyp Specimen(s): other (Anastomotic polyp) Complications: none Impression: Polyp Post-procedure Recommendations: Colonscopy in 1 year Disposition: same day surgery
[2020-08-04 09:01] VITALS: BP 100/61; PULSE 63; RESP 10; TEMP 36.2; O2SAT 99
[2020-08-04 09:05] VITALS: BP 99/56; PULSE 63; RESP 10; O2SAT 98
[2020-08-04 09:11] VITALS: BP 100/69; PULSE 75; RESP 12; O2SAT 99
[2020-08-04 09:15] VITALS: BP 106/76; PULSE 60; RESP 12; TEMP 36.7; O2SAT 99
--- NOTE | 2020-08-04 09:19 | SUR.PHASEI ---
Received to PACU at 0901 after MAC. Airway patent, self maintained. Report received from GLADYS Samuel. Pt denies pain. Abdomen soft, non distended.
--- NOTE | 2020-08-04 09:19 | SUR.PHASEII ---
Pt received from Bryn Prado. Pt extremely sleepy, barely able to open eyes. Placed on monitor for frequent vs
[2020-08-04 09:28] VITALS: BP 112/70; PULSE 60; RESP 16; TEMP 36.6; O2SAT 97
--- NOTE | 2020-08-04 09:53 | SUR.PHASEII ---
0945-Pt dcd in stable condition via [facility] sleepy but states he wants to go home and adamant pt will be fine and is always like this. All dc instructions given to pt and . iv dcd site clear. pt up and ambulating gait steady and dressed himself 5 minutes ago
[2020-08-04] MEDS: LACTATED RINGERS 1,000 ML 200 ML IV (09:57)
== END 2020-08-04 09:45 | disposition home or self-care (01) ==
PROVIDERS: PCP Internal Medicine Hematology & Oncology; Referring Provider Internal Medicine Hematology & Oncology; Visit Provider Surgery
PROC: 0DJD8ZZ Inspection of Lower Intestinal Tract, Via Natural or Artificial Opening Endoscopic (ICD-10-PCS; CPT 45378; principal; 2020-08-04 08:30)
DX: Z12.11 Encounter for screening for malignant neoplasm of colon (principal); Z85.038 Personal history of other malignant neoplasm of large intestine; G47.30 Sleep apnea, unspecified; K21.9 Gastro-esophageal reflux disease without esophagitis; F17.210 Nicotine dependence, cigarettes, uncomplicated; K63.5 Polyp of colon
CPT/HCPCS: 45380; 99152; 99153; J2250; J3010

== ENCOUNTER 2020-11-27 22:40 | Observation (INO) | payer OTHER, SELFPAY ==
[2020-11-27 22:48] VITALS: PULSE 69; RESP 20; O2SAT 99
[2020-11-27 22:53] VITALS: PULSE 67; RESP 19; O2SAT 100
[2020-11-27 22:54] VITALS: BP 192/113; PULSE 66; RESP 21; O2SAT 99
[2020-11-27 23:00] VITALS: PULSE 68; RESP 21; O2SAT 99
[2020-11-27 23:30] VITALS: PULSE 62; RESP 6; O2SAT 100
[2020-11-28] VITALS (30 sets, daily range): BP systolic 141–186; BP diastolic 82–115; PULSE 59–81; RESP 15–20; TEMP 36.7–37.3; O2SAT 96–100; BMI 24.5
--- NOTE | 2020-11-28 00:17 | DI.RAD.S_ITS ---
PROCEDURE: XR CHEST 1V INDICATIONS: chest pain TECHNIQUE: One view of the chest was acquired. COMPARISON: [facility], CT, CT CHEST ABD PEL W CON, 05/16/2020, 9:06. [facility], CT, CT CHEST ABD PEL WO CON, 11/27/2020, 15:30. [facility], CT, CT SOFT TISSUE NECK WO CON, 11/27/2020, 15:30. [facility], CR, CHEST 2 VIEW, 09/24/2017, 12:21. FINDINGS: Surgical changes and devices: Cervical fixation plate is present. Left Port-A-Cath is present. Distal tip is projecting over the midline of the upper thoracic spine. Patient is slightly rotated. It is noted on the CT neck of 11/27/2020 catheter is within the mid SVC. Lungs and pleura: Lungs are clear. Mediastinum: Mediastinal contours appear normal. Heart size is borderline enlarged. Bones and chest wall: No suspicious bony lesions. Overlying soft tissues appear unremarkable. IMPRESSION: Lungs are clear. Dictated by: Liz Bobby M.D. on 11/28/2020 at 9:28 Approved by: Liz Bobby M.D. on 11/28/2020 at 9:34
[2020-11-28] MEDS: ASPIRIN 81 MG CHEW TAB 324 MG PO (00:38)
[2020-11-28 00:44] LABS: Add Manual Diff / Slide Review NO; Basophils Absolute Auto 100 /uL (0-100); Basophils Percent Auto 1.4 % (0-2); Eosinophils Absolute Auto 200 /uL (0-450); Eosinophils Percent Auto 3.7 % (2-4); Hematocrit 27.9 % (41-53); Hemoglobin 9.2 g/dL (13.5-17.5); Lymphocytes Absolute Auto 2100 /uL (1100-4500); Lymphocytes Percent Auto 31.6 % (25-40); Mean Corpuscular Hemoglobin 29.8 PG (26-34); Mean Corpuscular Volume 90.2 fL (80-100); Monocytes Absolute Auto 500 /uL (0-900); Monocytes Percent Auto 7.5 % (3-14); Neutrophils Absolute Auto 3700 /uL (1500-7000); Neutrophils Percent Auto 55.8 % (50-75); Platelet Count 57 X10^3/uL (150-400); Prothrombin Time 11.7 SECONDS (10.1-12.7); Red Cell Distribution Width 13.4 % (11.6-14.8); White Blood Cell Count 6.7 X10^3/uL (4.5-11.0)
--- NOTE | 2020-11-28 00:46 | ED.ABDPAIN ---
HPI - Abdominal Pain General Chief Complaint: Chest Pain Stated Complaint: chest pain Time Seen by Provider: 11/28/20 00:17 Source: patient Mode of arrival: Ambulatory Limitations: no limitations History of Present Illness HPI narrative: Patient complains right upper quadrant pain starting 6 hours ago at home. Patient had multiple CT scans and blood work done today at this facility by his oncologist Dr. Pineda. Stage IV colon cancer. On every 3 week chemotherapy. From the office. History of hemicolectomy. History cholecystectomy as well. No fever chills. Blood pressure noted. No history of high blood pressure. Denies any chest pain. No nausea vomiting diarrhea. No fever chills. Please see CT scan results below. MD complaint: abdominal pain Related Data Home Medications Medication Instructions Recorded Confirmed Avastin mg Q3W 08/04/20 Previous Rx's Medication Instructions Recorded naproxen 500 mg PO Q12H #20 tab 07/05/19 oxycodone-acetaminophen [Percocet] 1 tab PO Q4H PRN #15 tab 07/05/19 Allergies Allergy/AdvReac Type Severity Reaction Status Date / Time No Known Drug Allergies Allergy Verified 08/04/20 07:41 Review of Systems Review of Systems Narrative: GENERAL: Denies chills, fatigue, malaise, fever, sweats. HEENT: Denies sinus pain, ear pain, sore throat, difficulty swallowing RESPIRATORY: Denies dyspnea, cough CARDIOVASCULAR: Denies chest pain, palpitations, edema, GASTROINTESTINAL: Denies nausea, vomiting, complains of abdominal pain, denies diarrhea, constipation, melena. : Denies dysuria, frequency, hematuria MUSCULOSKELETAL: denies muscle or bony pain SKIN: Denies rash, skin lesions NEUROLOGIC: Denies weakness, headache, numbness, change in speech, confusion PSYCHIATRIC: No SI or HI or hallucinations ROS Unobtainable: All systems reviewed & are unremarkable except as noted in HPI and below Patient History Medical History (Updated 11/28/20 @ 03:03 by Woodrow De Luna MD) GERD (gastroesophageal reflux disease) Malignant neoplasm of colon Sleep apnea Surgical History H/O right hemicolectomy History of surgery of liver S/P cervical spinal fusion Social History household members: spouse Smoking Status: Current every day smoker Smoking Status: Current every day smoker alcohol intake frequency: other Substance Use Type: does not use Exam Narrative Exam Narrative: GENERAL: patient appears stated age. Well-nourished, well-developed patient, in no distress, not toxic not dyspneic HEAD: Normocephalic. EYES: Pupils equal round and reactive. No scleral icterus. No injection no discharge ENT: Mucous membranes moist. No drooling no tongue elevation no trismus no malocclusion NECK: Trachea midline. Non tender CARDIOVASCULAR: Regular rate and rhythm without murmurs, gallops, or rubs. RESPIRATORY: Clear to auscultation. Breath sounds equal bilaterally. No wheezes, rales, or rhonchi. GASTROINTESTINAL: Abdomen soft, mild right upper quadrant tenderness. No peritoneal signs. Bowel sounds present, nondistended. EXTREMITIES: No gross deformities. BACK: Nontender without deformity or crepitance. No flank tenderness. NEURO: AOx4. SKIN: Warm and dry PSYCH: Not anxious, is cooperative Initial Vital Signs Initial Vital Signs: Vital Signs Pulse Rate 69 11/27/20 22:48 Respiratory Rate 20 11/27/20 22:48 Pulse Oximetry 99 11/27/20 22:48 Course Course Course Narrative: Patient remains hypertensive while sleeping. 179/105. Will admit Decision to Admit Date: 11/28/20 Decision to Admit time: 03:01 Orders Ordered: ED Orders 11/28/20 00:17 XR chest 1V Stat Complete Blood Count AUTO DIFF Stat Comprehensive Metabolic Panel Stat Lipase Stat Partial Thromboplastin Time Stat Prothrombin Time INR Stat Troponin & CK Cardiac Panel Stat 11/28/20 00:18 EKG-12 Lead Stat Discontinued Medications Aspirin (Aspirin 81 Mg Chew Tab) 324 mg PO NOW ONE Stop: 11/28/20 00:18 Last Admin: 11/28/20 00:38 Dose: 324 mg Documented by: AHSAN Hydralazine HCl (Hydralazine 20 Mg/Ml Vial) 5 mg IV NOW ONE Stop: 11/28/20 02:53 Last Admin: 11/28/20 02:56 Dose: 5 mg Documented by: KRISTIE Lisinopril (Lisinopril 10 Mg Tablet) 10 mg PO NOW ONE Stop: 11/28/20 02:58 Last Admin: 11/28/20 03:55 Dose: 10 mg Documented by: KRISTIE Metoprolol Succinate (Metoprolol Er 25 Mg Tablet) 25 mg PO NOW ONE Stop: 11/28/20 00:52 Last Admin: 11/28/20 01:14 Dose: 25 mg Documented by: KRISTIE Reevaluation(s) Reevaluation #1: Awoke patient to inform results and blood pressure. He agrees for admission for observation. Time: 03:01 Consultations Consultation #1: Spoke with hospitalist, Chang, will admit. Instructed to give lisinopril 10 mg by mouth now. No IV drips indicated this time. Time: 03:01 Vital Signs Vital signs: Vital Signs - 8 hr 11/27/20 22:48 11/27/20 22:53 11/27/20 22:54 Pulse Rate 69 67 66 Respiratory Rate 20 19 21 Blood Pressure 192/113 H Pulse Oximetry 99 100 99 11/27/20 23:00 11/27/20 23:30 11/28/20 00:00 Pulse Rate 68 62 62 Respiratory Rate 21 6 L 17 Blood Pressure Pulse Oximetry 99 100 100 11/28/20 00:30 11/28/20 00:43 11/28/20 01:00 Pulse Rate 69 62 62 Respiratory Rate 17 17 19 Blood Pressure 181/102 H Pulse Oximetry 99 100 100 11/28/20 01:30 11/28/20 01:50 11/28/20 02:00 Pulse Rate 63 65 60 Respiratory Rate 15 18 16 Blood Pressure 178/103 H 182/105 H Pulse Oximetry 100 100 100 11/28/20 02:22 11/28/20 02:30 11/28/20 02:56 Pulse Rate 64 65 Respiratory Rate 16 Blood Pressure 182/105 H 179/105 H 179/105 H Pulse Oximetry 100 11/28/20 03:00 Pulse Rate 60 Respiratory Rate 19 Blood Pressure 176/91 H Pulse Oximetry 99 MDM - Abdominal Pain Differential Diagnosis Differential diagnosis: Likely abdominal pain and pancreatitis Medical Records Attestation: I reviewed the patient's medical records. Lab Data Attestation: I reviewed the patient's lab results. Result diagrams: 11/27/20 22:52 11/27/20 22:52 Labs: Lab Results 11/27/20 11/27/20 11/27/20 Range/Units 22:52 22:52 22:52 WBC 6.7 (4.5-11.0) X10^3/uL RBC 3.10 L (4.5-5.9) X10^6/uL Hgb 9.2 L (13.5-17.5) g/dL Hct 27.9 L (41-53) % MCV 90.2 (80-100) fL MCH 29.8 (26-34) PG MCHC 33.0 (30-36) % RDW 13.4 (11.6-14.8) % Plt Count 57 L (150-400) X10^3/uL Neut % (Auto) 55.8 (50-75) % Lymph % (Auto) 31.6 (25-40) % [place] % (Auto) 7.5 (3-14) % Eos % (Auto) 3.7 (2-4) % Baso % (Auto) 1.4 (0-2) % Neut # (Auto) 3700 (4526-4392) /uL Lymph # (Auto) 2100 (5438-8064) /uL [place] # (Auto) 500 (0-900) /uL Eos # (Auto) 200 (0-450) /uL Baso # (Auto) 100 (0-100) /uL PT 11.7 (10.1-12.7) SECONDS INR 1.0 (0.9-1.3) APTT 32 (26.4-36.2) SECONDS Sodium 135 L (137-145) mmol/L Potassium 3.8 (3.4-5.1) mmol/L Chloride 109 H (98-107) mmol/L Carbon Dioxide 28 (22-32) mmol/L BUN 31 H (9-20) mg/dL Creatinine 1.65 H (0.66-1.25) mg/dL Estimated GFR 44.7 L (>60) mL/min BUN/Creatinine Ratio 18.8 (6-22) Glucose 105 H (70-100) mg/dL Calcium 7.8 L (8.4-10.2) mg/dL Total Bilirubin 0.4 (0.2-1.3) mg/dL AST 48 (17-59) IU/L ALT 23 (<50) IU/L Alkaline Phosphatase 55 (38-126) U/L Total Creatine Kinase 234 H (55-170) U/L CK-MB (CK-2) 0.91 (<2.37) ng/mL CK-MB (CK-2) Rel Index 0.4 L (1.5-5.0) % Troponin I 0.017 (0.01-0.034) ng/mL Total Protein 5.0 L (6.3-8.2) g/dL Albumin 2.8 L (3.5-5.0) g/dL Globulin 2.2 (1.7-4.1) g/dL Albumin/Globulin Ratio 1.3 (1.0-2.8) Lipase 84 (23-300) U/L Imaging Data CT scan - head: Radiologist's Impression: [address] [id number] Scan ReportSigned Patient: Naeem Parnell HMR#: [id number]: 1970Acct:[id number]/Sex: 50 / MDate of Service: 11/27/20Loc: ONCAccession Number: [id number] Procedure: CT head/brain wo con Ordering Provider: Shirley Pineda MD PROCEDURE: CT HEAD/BRAIN WO CON INDICATIONS: pain in face, neck, and abd TECHNIQUE: Noncontrast 4.5 mm thick angled axial sections acquired from the foramen magnum to the vertex, with coronal and sagittal reformats. For radiation dose reduction, the following was used: automated exposure control, adjustment of mA and/or kV according to patient size. COMPARISON: None. FINDINGS: Image quality: Excellent. CSF spaces: Basal cisterns are patent. No extra-axial fluid collections. Ventricles are normal in size and shape. Brain: No midline shift. No intracranial masses or hemorrhage. Knapp-white matter interface is normal. Skull and face: Calvarium and visualized facial bones are intact, without suspicious lesions. The orbits and retrobulbar are soft tissues are normal. The soft tissues are normal. Sinuses: Visualized sinuses and mastoids are clear. IMPRESSION: No acute intracranial abnormality. Dictated by: Vijay Morgan M.D. on 11/27/2020 at 15:52 Approved by: Vijay Morgan M.D. on 11/27/2020 at 15:54 CT scan - abdomen/pelvis: Radiologist's Impression: [address] [place] [id number] Scan ReportSigned Patient: Naeem Parnell R#: [id number]: 1970Acct:[id number]/Sex: 50 / MDate of Service: 11/27/20Loc: ONCAccession Number: [id number] Procedure: CT chest abd pel wo con Ordering Provider: Shirley Pineda MD PROCEDURE: CT CHEST ABD PEL WO CON INDICATIONS: pain in face, nexk, and abd TECHNIQUE: After the administration of oral contrast, 5 mm thick sections acquired from the lung apices to the symphysis pubis. 5 mm thick coronal and sagittal reformats acquired, with additional 7 mm coronal MIP reformats through the lungs. For radiation dose reduction, the following was used: automated exposure control, adjustment of mA and/or kV according to patient size. COMPARISON: [facility], CT, CT CHEST ABD PEL W CON, 05/16/2020, 9:06. FINDINGS: Image quality: Excellent. CHEST: Lungs and pleura: No acute air space opacities. No pleural effusions or pneumothorax. Central and peripheral airways are patent and normal in caliber. Mediastinum: Heart size is normal. The density of the blood within the heart chambers is low suggesting severe anemia. No pericardial effusion. No mediastinal adenopathy by size criteria. Thoracic aorta and central pulmonary arteries are normal in size. Esophagus is normal in caliber. No hiatal hernia. Bones and chest wall: No suspicious bony lesions. No vertebral body compression fractures. No axillary or supraclavicular adenopathy by size criteria. Thyroid gland is normal. A left chest wall port is seen. ABDOMEN: Solid organs: Liver: The liver has no mass or intrahepatic biliary ductal dilatation. A previously described 3 mm hypodensity in the right hepatic is unchanged and likely insignificant. The portal vein and hepatic veins are patent. Multiple coils in the right hepatic dome are compatible with prior treatment changes. Biliary: Status post cholecystectomy. Pancreas: The pancreas has no mass or ductal dilatation. There is no surrounding inflammation. Spleen: Normal size. There are no masses. Adrenals: No hypertrophy or nodules. Kidneys: No obstructive calculus or hydronephrosis. No solid mass. The right kidney has a 3 cm cyst in the midpole anteriorly. Bowel: The distal esophagus and stomach are normal. The small bowel has a normal caliber and appearance. The terminal ileum is normal. The patient is status post right hemicolectomy. Anastomotic sutures in the proximal transverse colon are noted. There is no evidence of local recurrence. No free fluid or air. Nodes and vessels: No retroperitoneal or mesenteric adenopathy by size criteria. Aorta and inferior vena cava are normal in size. The aorta has atherosclerotic calcifications. Abdominal wall: No abdominal wall mass or hernia. PELVIS: Genitourinary: The bladder has no wall thickening or mass. No bladder calcifications. Miscellaneous: No inguinal hernias or adenopathy. Bones and abdominal wall: No suspicious bony lesions. No vertebral body compression fractures. IMPRESSION: 1. No evidence of metastatic disease to the chest, abdomen, or pelvis. 2. Postoperative changes of right hemicolectomy with no evidence of local recurrence. 3. Hypodensity of the blood pool consistent with severe anemia. Dictated by: Vijay Morgan M.D. on 11/27/2020 at 16:02 Approved by: Vijay Morgan M.D. on 11/27/2020 at 16:20 CT scan soft tissue neck: Radiologist's Impression: [address] [id number] Scan ReportSigned Patient: Naeem Parnell R#: [id number]: 1970Acct:[id number]/Sex: 50 / MDate of Service: 11/27/20Loc: ONCAccession Number: [id number] Procedure: CT soft tissue neck wo con Ordering Provider: Shirley Pineda MD PROCEDURE: CT SOFT TISSUE NECK WO CON INDICATIONS: pain in face, nexk, and abd TECHNIQUE: Non-contrast 3.0 mm axial sections acquired from the sella to the aortic arch. Additional oblique axial 3.0 mm sections acquired through the pharynx. 3 mm thick coronal and sagittal reformats were generated. For radiation dose reduction, the following was used: automated exposure control. COMPARISON: [place], [place], PET NECK TO MID THIGH STD, 04/12/2017, 9:41. FINDINGS: Image quality: Portions of the neck are suboptimally evaluated secondary to metallic streak artifact from cervical fusion and dental hardware. Lymph nodes: No enlarged lymph nodes seen throughout the neck. Vessels: Non-opacified vessels appear normal in caliber. Neck spaces: The oropharynx, nasopharynx, and pharynx demonstrate no mucosal lesions. The vocal cords, false vocal cords, pyriform sinuses, epiglottis, vallecula, and tongue base all appear normal. Extramucosal spaces appear unremarkable. Glands: The parotid and submandibular glands appear normal, without stones. Thyroid gland is unremarkable. Miscellaneous: Visualized brain and orbits appear normal. Lung apices appear clear. Superficial soft tissues appear normal. IMPRESSION: 1. No acute soft tissue abnormality is identified. Dictated by: Liz Bobby M.D. on 11/27/2020 at 15:56 Approved by: Liz Bobby M.D. on 11/27/2020 at 16:13 Chest x-ray: Radiologist's Impression: No acute findings ECG Data Attestation: I personally reviewed and interpreted this ECG as follows: Interpretation: Normal sinus rhythm rate [address] elevation or depression. Normal intervals MDM Narrative Medical decision making narrative: At this time unknown source for right upper quadrant pain. Abdomen pelvis CT completed. Was done earlier today. No new occasion to repeat. Blood work reviewed. Blood pressure still elevated while sleeping, appropriate for admission. No changes with metoprolol. Will need further management. Not requiring ICU at this time. Giving boluses of antihypertensives Discharge Plan Departure Patient Disposition: Admitted as Observation Clinical Impression: Hypertensive urgency, Acute upper abdominal pain Admit Date/Time: 11/28/20 03:01 Admit Provider: Sal Henriquez
[2020-11-28 00:47] LABS: PTT Partial Thromboplastin Tim 32 SECONDS (26.4-36.2)
[2020-11-28 01:01] LABS: Alanine Aminotransferase 23 IU/L (<50); Albumin 2.8 g/dL (3.5-5.0); Albumin Globulin Ratio 1.3 (1.0-2.8); Alkaline Phosphatase 55 U/L (38-126); Aspartate Aminotransferase 48 IU/L (17-59); BUN Creatinine Ratio 18.8 (6-22); Bilirubin Total 0.4 mg/dL (0.2-1.3); Blood Urea Nitrogen 31 mg/dL (9-20); Calcium 7.8 mg/dL (8.4-10.2); Carbon Dioxide 28 mmol/L (22-32); Chloride 109 mmol/L (98-107); Creatine Kinase 234 U/L (55-170); Estimated Glomerular Filt Rate 44.7 mL/min (>60); Globulin 2.2 g/dL (1.7-4.1); Glucose 105 mg/dL (70-100); HEMOLYSIS < 15 (0-50); Lipase 84 U/L (23-300); Potassium 3.8 mmol/L (3.4-5.1); Sodium 135 mmol/L (137-145)
[2020-11-28 01:13] LABS: Troponin I 0.017 ng/mL (0.01-0.034)
[2020-11-28] MEDS: METOPROLOL ER 25 MG TABLET PO (01:14)
[2020-11-28 01:16] LABS: CKMB % Relative Index 0.4 % (1.5-5.0); Creatine Kinase MB 0.91 ng/mL (<2.37)
[2020-11-28] MEDS: HYDRALAZINE 20 MG/ML VIAL 5 MG IV (02:56)
--- NOTE | 2020-11-28 03:31 | PC.NURSE ---
Report given to CJ; pt will be transported to [facility] once his Covid results are in.
[2020-11-28 03:50] LABS: COVID19 -Nasal RAPID Negative (Negative)
[2020-11-28] MEDS: lisinopriL 10 MG TABLET PO (03:55)
--- NOTE | 2020-11-28 03:56 | PC.NURSE ---
Covid negative; lisinopril given prior to patient transfer up to room 216
--- NOTE | 2020-11-28 04:55 | P.HP_ITS ---
History of Present Illness History of Present Illness Date Patient Seen: 11/28/20 Time Patient Seen: 04:31 Chief complaint: chest pain Narrative: Mr. Naeem Parnell is a 50-year-old male with a past medical history of metastatic colon cancer status post hemicolectomy (2017), liver metastases status post livermetastasectomy (2017), on chemotherapy, GERD and sleep apnea presents to the ER with right upper quadrant abdominal pain for 6 hours. The patient was seen by Dr. Pineda earlier today and had undergone imaging and lab work. His last chemotherapy treatment with Avastin was canceled due to low platelets. Patient states he was told that time that his liver appeared enlarged. Following appointment he continued to his daily activities and went home and ate dinner after which she began experiencing right upper quadrant abdominal pain. The patient denies complaints of fevers or chills, he reports jaw pain that precipitated headache for 2 days earlier this week and over the previous weekend had nausea. He states that this abdominal pain is new and also endorses right posterior lateral chest wall pain. He denies complaints of palpitations and has had no shortness of breath cough wheezing. He has abdominal pain as above denies cramping hematochezia or melena. Diarrhea or constipation. He denies urinary difficulties or hematuria. Upon arrival the ER the patient is afebrile with temperature 98.1?, heart rate of 67, blood pressure 168/92 which during the hospital stay elevated to 192/113, respirations 16 saturating 98% on room air. Chest x-ray is obtained with no acute findings, CT of the soft tissue of the neck, CT of the head and CT of the chest abdomen pelvis are all unremarkable with no evidence of metastatic disease. Twelve lead EKG is obtained finding a sinus rhythm at 69 without ectopy or block, ST or T-wave changes. On laboratory analysis patient has a white count of 6.7 with no shift, hemoglobin of 9.2, hematocrit of 27.9 and platelets of 57. His coagulation studies are all within normal limits his chemistries are notable for a BUN of 31 and creatinine 1.65 with an EGFR 44.7. His liver functions are also within normal limits as an albumin that is low at 2.8. His total CK is 234, CK-MB is 0.91 for an index of 0.4%. His troponin is 0.017. As above the patient developed persistent hypertension while in the ER and was given metoprolol succinate 25 mg, aspirin 320 mg lisinopril and hydralazine with no significant improvement. The patient is admitted to the hospital service for abdominal pain and hypertension. Patient History Medical History GERD (gastroesophageal reflux disease) Malignant neoplasm of colon Sleep apnea Surgical History H/O right hemicolectomy History of surgery of liver S/P cervical spinal fusion Family & Social History Family History (Updated 11/28/20 @ 05:53 by DESTINEE Mancera) Mother Hypertension Coronary artery disease Social History: household members spouse Prior Living Arrangements House Safety & Behavioral: Feels Safe in Current Yes Environment Suicidal Ideation Description None Suicide Plan Description No Plan Tobacco & Substance use: Tobacco type cigarettes Smoking Status Current every day smoker alcohol intake frequency other Substance Use Type does not use Meds Home Medications and Allergies Home Medications Medication Instructions Recorded Confirmed Type naproxen 500 mg PO Q12H #20 tab 07/05/19 11/06/20 Rx oxycodone-acetaminophen [Percocet] 1 tab PO Q4H PRN #15 tab 07/05/19 11/06/20 Rx Avastin mg Q3W 08/04/20 History Allergies Allergy/AdvReac Type Severity Reaction Status Date / Time No Known Drug Allergies Allergy Verified 08/04/20 07:41 Review of Systems Review of Systems ROS: Yes All systems reviewed with the patient and are negative except as otherwise documented Exam Vital Signs (past 8 hours): - 11/27/20 22:48 11/27/20 22:53 11/27/20 22:54 Pulse Rate 69 67 66 Respiratory Rate 20 19 21 Blood Pressure 192/113 H Pulse Oximetry 99 100 99 11/27/20 23:00 11/27/20 23:30 11/28/20 00:00 Pulse Rate 68 62 62 Respiratory Rate 21 6 L 17 Blood Pressure Pulse Oximetry 99 100 100 11/28/20 00:30 11/28/20 00:43 11/28/20 01:00 Pulse Rate 69 62 62 Respiratory Rate 17 17 19 Blood Pressure 181/102 H Pulse Oximetry 99 100 100 11/28/20 01:30 11/28/20 01:50 01/22/21 02:00 Pulse Rate 63 65 60 Respiratory Rate 15 18 16 Blood Pressure 178/103 H 182/105 H Pulse Oximetry 100 100 100 11/28/20 02:22 11/28/20 02:30 11/28/20 02:56 Pulse Rate 64 65 Respiratory Rate 16 Blood Pressure 182/105 H 179/105 H 179/105 H Pulse Oximetry 100 11/28/20 03:00 11/28/20 03:30 Pulse Rate 60 59 L Respiratory Rate 19 18 Blood Pressure 176/91 H 170/97 H Pulse Oximetry 99 99 Oxygen Delivery Method Room Air Narrative Exam Narrative: GENERAL APPEARANCE: well developed, well nourished, in no acute distress. HEENT: Normocephalic, PERRLA, conjunctiva clear, EOMs intact without nystagmus, no sinus tenderness to percussion, mild TMJ pain, no rhinorrhea, mucous membranes are dry and pink NECK/THYROID: neck supple, no JVD, no carotid bruit, no thyromegaly, trachea midline. LYMPH NODES: no cervical lymphadenopathy palpable node right supraclavicular at the base the neck tender to palpation. SKIN: [place], warm and dry, no visible lesions, rashes, ulcerations or petechiae. HEART: regular rate and rhythm, S1-S2, no murmur, no rubs or gallops, brisk capillary refill, no edema LUNGS: clear to auscultation bilaterally, no coarseness crackles or wheezing, no cough present CHEST: Symmetrical movement, no accessory muscle use, good tidal volume chest wall pain on palpation right post anterior axillary line approximately of 5th 6th rib. ABDOMEN: Soft, no distention, pain on palpation right upper quadrant, palpable liver extending 1 cm below costal margin, no guarding or peritoneal signs, no organomegaly, no flank or suprapubic tenderness, active bowel tones. BACK: Normal curvature, nontender to palpation, no CVA tenderness on percussion EXTREMITIES: moves all extremities, strength is 5/5 and symmetrical, no deformities or joint effusions. NEUROLOGIC: AAO x4, cranial nerves II-XII grossly intact, paresthesias left fingers, hearing grossly normal to speech. PSYCH: Good judgment, good insight, linear thought process, cooperative, appropriate with stable behavior Objective Labs Result Diagrams: 11/27/20 22:52 11/27/20 22:52 Labs: Laboratory Results - last 24 hr 11/27/20 11/27/20 11/27/20 22:52 22:52 22:52 WBC 6.7 RBC 3.10 L Hgb 9.2 L Hct 27.9 L MCV 90.2 MCH 29.8 MCHC 33.0 RDW 13.4 Plt Count 57 L Neut % (Auto) 55.8 Lymph % (Auto) 31.6 [place] % (Auto) 7.5 Eos % (Auto) 3.7 Baso % (Auto) 1.4 Neut # (Auto) 3700 Lymph # (Auto) 2100 [place] # (Auto) 500 Eos # (Auto) 200 Baso # (Auto) 100 PT 11.7 INR 1.0 APTT 32 Sodium 135 L Potassium 3.8 Chloride 109 H Carbon Dioxide 28 BUN 31 H Creatinine 1.65 H Estimated GFR 44.7 L BUN/Creatinine Ratio 18.8 Glucose 105 H Calcium 7.8 L Total Bilirubin 0.4 AST 48 ALT 23 Alkaline Phosphatase 55 Total Creatine Kinase 234 H CK-MB (CK-2) 0.91 CK-MB (CK-2) Rel Index 0.4 L Troponin I 0.017 Total Protein 5.0 L Albumin 2.8 L Globulin 2.2 Albumin/Globulin Ratio 1.3 Lipase 84 SARS-CoV-2 (PCR) 11/28/20 03:28 WBC RBC Hgb Hct MCV MCH MCHC RDW Plt Count Neut % (Auto) Lymph % (Auto) [place] % (Auto) Eos % (Auto) Baso % (Auto) Neut # (Auto) Lymph # (Auto) [place] # (Auto) Eos # (Auto) Baso # (Auto) PT INR APTT Sodium Potassium Chloride Carbon Dioxide BUN Creatinine Estimated GFR BUN/Creatinine Ratio Glucose Calcium Total Bilirubin AST ALT Alkaline Phosphatase Total Creatine Kinase CK-MB (CK-2) CK-MB (CK-2) Rel Index Troponin I Total Protein Albumin Globulin Albumin/Globulin Ratio Lipase SARS-CoV-2 (PCR) Negative Assessment & Plan Assessment & Plan narrative: This is a 50-year-old male with a past medical history of metastatic colon cancer status post hemicolectomy (2017), liver metastases status post livermetastasectomy (2017), on chemotherapy, GERD and sleep apnea presents to the ER with right upper quadrant abdominal pain onset this evening bring him to the ER where he is found to be hypertensive. 1. Right upper quadrant abdominal pain, acute, present on admission, active -patient with IV upper quadrant pain seen by Dr. Pineda his oncologist today who felt the patient's liver was large. Liver margin is palpable 1 cm below the costal margin -CT of the chest abdomen pelvis today reports no significant findings in the liver other than a 3 mm hypodensity in the right hepatic is unchanged, no ductal dilatation. The patient had previous hepatic metastases that were surgically removed at [facility]. -total bilirubin is 0.4, AST 48, ALT 23 and alkaline phosphatase 55. White count is normal at 6.7 without shift. -ordered oxycodone 5 mg every 4 hours as needed for pain 2. Metastatic colon cancer, chronic, stable - differentiated adenocarcinoma of the colon and has undergone hemicolectomy patient has undergone subsequent colonoscopy in July of 2020 with identifi cation of benign polyp without evidence recurrence. -patient is receiving chemotherapy with Avastin every 3 weeks. Last dose was held due to low platelet count. -patient is anemic with a hemoglobin of 9.2, hematocrit of 27.9 and platelets are 57. 3. Acute kidney injury superimposed on chronic renal failure stage 3, present on admission, active -patient has chronic renal failure with baseline creatinine at 1.3. Creatinine is elevated today at 1.65. EGFR is 44.7 and BUN creatinine ratio is 19. -the patient underwent multiple CT scans however no contrast was used. -will gently hydrate the patient with normal saline and re-evaluate renal function. 4. Elevated blood pressure without diagnosis of hypertension, acute, present on admission, active. -patient reports his blood pressure typically running in the 120s. On presentation today to the ER he has a blood pressure 160/92 injuring ER stays up to 192/113. -while in the ER the patient received metoprolol succinate 25 mg, lisinopril 10 mg and hydralazine 5 mg with minimal of affect. Blood pressure on arrival the floor is 164/101. -ordered hydralazine 10 mg IV as needed for systolic blood pressure greater than 180 or diastolic pressure greater than 100. -ordered oxycodone 5 mg for pain management. 5. Gastroesophageal reflux disease, chronic, stable -ordered Protonix 40 mg IV x1 now and Protonix 40 mg daily starting tomorrow. VTE prophylaxis: SCDs IV fluid: Normal saline 50 cc/hour Diet: Heart healthy Code status: Full code, the patient designates white be surrogate decision maker. The patient is admitted to the hospital due to the severity of his complaints for requiring further evaluation and monitoring. The patient is admitted as observation with expected length of stay to be less than 2 midnights. COVID-19 COVID-19 status: Negative Result date/Date tested (Pos, Neg/Pending): 11/27/20 Scores GCS [place] coma scale eye opening: Spontaneous [place] coma scale verbal response: Orientated [place] coma scale motor response: Obey commands [place] coma scale total score: 15
[2020-11-28 05:59] LABS: Add Manual Diff / Slide Review NO; Basophils Absolute Auto 100 /uL (0-100); Basophils Percent Auto 1.5 % (0-2); Eosinophils Absolute Auto 300 /uL (0-450); Eosinophils Percent Auto 4.6 % (2-4); Hematocrit 26.9 % (41-53); Hemoglobin 8.8 g/dL (13.5-17.5); Lymphocytes Absolute Auto 2100 /uL (1100-4500); Lymphocytes Percent Auto 33.3 % (25-40); Mean Corpuscular HGB Conc 32.9 % (30-36); Mean Corpuscular Hemoglobin 29.4 PG (26-34); Mean Corpuscular Volume 89.5 fL (80-100); Monocytes Absolute Auto 500 /uL (0-900); Monocytes Percent Auto 7.9 % (3-14); Neutrophils Absolute Auto 3400 /uL (1500-7000); Neutrophils Percent Auto 52.7 % (50-75); Platelet Count 60 X10^3/uL (150-400); Red Blood Cell Count 3.01 X10^6/uL (4.5-5.9); Red Cell Distribution Width 13.4 % (11.6-14.8); White Blood Cell Count 6.4 X10^3/uL (4.5-11.0)
[2020-11-28 06:09] LABS: BUN Creatinine Ratio 17.8 (6-22); Blood Urea Nitrogen 27 mg/dL (9-20); Calcium 7.6 mg/dL (8.4-10.2); Carbon Dioxide 28 mmol/L (22-32); Chloride 109 mmol/L (98-107); Estimated Glomerular Filt Rate 49.2 mL/min (>60); Glucose 95 mg/dL (70-100); HEMOLYSIS < 15 (0-50); Potassium 3.9 mmol/L (3.4-5.1); Sodium 136 mmol/L (137-145)
[2020-11-28] MEDS: SODIUM CHLORIDE 0.9% 1,000 ML 75 ML IV (06:10)
[2020-11-28] MEDS: PANTOPRAZOLE 40 MG VIAL IV (06:12)
[2020-11-28] MEDS: ACETAMINOPHEN 325 MG TABLET 650 MG PO (10:56)
--- NOTE | 2020-11-28 11:18 | PM.PN.1 ---
Subjective Subjective Date Patient Seen: 11/28/20 Interval history: His EKG is reviewed and is normal. His white blood count is 6.4 with a hemoglobin of 8.8 and platelets of 60. His blood pressure is up to 151/99. The creatinine is 1.52. The BUN is 27. He is most worried by his high blood pressure and not by the abdominal pain. This is his 1st episode of concurrent hypertension/abdominal pain so he has never been evaluated for porphyria before Exam Vital Signs (past 8 hours): - 11/28/20 03:30 11/28/20 05:01 11/28/20 05:27 Temperature 98.0 F Pulse Rate 59 L 66 66 Respiratory Rate 18 18 Blood Pressure 170/97 H 164/101 H 164/101 H Pulse Oximetry 99 100 11/28/20 05:33 11/28/20 05:43 11/28/20 06:03 Temperature 98.0 F Pulse Rate 63 63 Respiratory Rate 18 18 Blood Pressure 151/99 H 151/99 H Pulse Oximetry 100 100 11/28/20 08:54 Temperature 99.2 F Pulse Rate 60 Respiratory Rate 16 Blood Pressure 149/90 H Pulse Oximetry 100 Oxygen Delivery Method Room Air Oxygen Flow Rate 0 Narrative Exam Narrative: He is alert and oriented, discussing his symptoms with what seems to be accuracy. Heart is regular rate and rhythm without murmur Lungs are clear to auscultation Extremities have no ankle edema Abdomen has mild right upper quadrant tenderness. There is no chest tenderness bowel sounds are active. I do not feel an enlarged liver. Objective Labs Result Diagrams: 11/28/20 05:50 11/28/20 05:50 Labs: Laboratory Results - last 24 hr 11/27/20 11/27/20 11/27/20 22:52 22:52 22:52 WBC 6.7 RBC 3.10 L Hgb 9.2 L Hct 27.9 L MCV 90.2 MCH 29.8 MCHC 33.0 RDW 13.4 Plt Count 57 L Neut % (Auto) 55.8 Lymph % (Auto) 31.6 [place] % (Auto) 7.5 Eos % (Auto) 3.7 Baso % (Auto) 1.4 Neut # (Auto) 3700 Lymph # (Auto) 2100 [place] # (Auto) 500 Eos # (Auto) 200 Baso # (Auto) 100 PT 11.7 INR 1.0 APTT 32 Sodium 135 L Potassium 3.8 Chloride 109 H Carbon Dioxide 28 BUN 31 H Creatinine 1.65 H Estimated GFR 44.7 L BUN/Creatinine Ratio 18.8 Glucose 105 H Calcium 7.8 L Magnesium Total Bilirubin 0.4 AST 48 ALT 23 Alkaline Phosphatase 55 Total Creatine Kinase 234 H CK-MB (CK-2) 0.91 CK-MB (CK-2) Rel Index 0.4 L Troponin I 0.017 Total Protein 5.0 L Albumin 2.8 L Globulin 2.2 Albumin/Globulin Ratio 1.3 Lipase 84 SARS-CoV-2 (PCR) 11/28/20 11/28/20 11/28/20 03:28 05:50 05:50 WBC 6.4 RBC 3.01 L Hgb 8.8 L Hct 26.9 L MCV 89.5 MCH 29.4 MCHC 32.9 RDW 13.4 Plt Count 60 L Neut % (Auto) 52.7 Lymph % (Auto) 33.3 [place] % (Auto) 7.9 Eos % (Auto) 4.6 H Baso % (Auto) 1.5 Neut # (Auto) 3400 Lymph # (Auto) 2100 [place] # (Auto) 500 Eos # (Auto) 300 Baso # (Auto) 100 PT INR APTT Sodium 136 L Potassium 3.9 Chloride 109 H Carbon Dioxide 28 BUN 27 H Creatinine 1.52 H Estimated GFR 49.2 L BUN/Creatinine Ratio 17.8 Glucose 95 Calcium 7.6 L Magnesium Total Bilirubin AST ALT Alkaline Phosphatase Total Creatine Kinase CK-MB (CK-2) CK-MB (CK-2) Rel Index Troponin I Total Protein Albumin Globulin Albumin/Globulin Ratio Lipase SARS-CoV-2 (PCR) Negative 11/28/20 05:50 WBC RBC Hgb Hct MCV MCH MCHC RDW Plt Count Neut % (Auto) Lymph % (Auto) [place] % (Auto) Eos % (Auto) Baso % (Auto) Neut # (Auto) Lymph # (Auto) [place] # (Auto) Eos # (Auto) Baso # (Auto) PT INR APTT Sodium Potassium Chloride Carbon Dioxide BUN Creatinine Estimated GFR BUN/Creatinine Ratio Glucose Calcium Magnesium 2.0 Total Bilirubin AST ALT Alkaline Phosphatase Total Creatine Kinase CK-MB (CK-2) CK-MB (CK-2) Rel Index Troponin I Total Protein Albumin Globulin Albumin/Globulin Ratio Lipase SARS-CoV-2 (PCR) PFSH Medical History GERD (gastroesophageal reflux disease) Malignant neoplasm of colon Sleep apnea Surgical History H/O right hemicolectomy History of surgery of liver S/P cervical spinal fusion Family History (Updated 11/28/20 @ 05:53 by DESTINEE Mancera) Mother Hypertension Coronary artery disease Social History household members: spouse Smoking Status: Current every day smoker Assessment & Plan Assessment & Plan narrative: This is a 50-year-old male with a past medical history of metastatic colon cancer status post hemicolectomy (2016), liver metastases status post livermetastasectomy (2016), on chemotherapy, GERD and sleep apnea presents to the ER with right upper quadrant abdominal pain onset that evening and in the ED he is found to be hypertensive. 1. Right upper quadrant abdominal pain, acute, present on admission, active -patient with IV upper quadrant pain seen by Dr. Pineda his oncologist 11/27 who felt the patient's liver was large. Liver margin is palpable 1 cm below the costal margin but does not necessarily feel large today. -CT of the chest abdomen pelvis no significant findings in the liver other than a 3 mm hypodensity in the right hepatic lobe is unchanged, no ductal dilatation. The patient had previous hepatic metastases that were surgically removed at the [facility]. -total bilirubin is 0.4, AST 48, ALT 23 and alkaline phosphatase 55. White count is normal at 6.7 without shift. -Continue oxycodone 5 mg every 4 hours as needed for pain -initiate workup for acute intermittent porphyria. 2. Metastatic colon cancer, chronic, stable - differentiated adenocarcinoma of the colon and has undergone hemicolectomy and then has undergone subsequent colonoscopy in July of 2020 with identification of benign polyp without evidence of recurrence. -patient is receiving chemotherapy with Avastin every 3 weeks. Last dose was held due to low platelet count. -patient is anemic with a hemoglobin of 9.2, hematocrit of 27.9 and platelets are 57 on 11/27 and then 8.8 and 60 on 11/28. 3. Acute kidney injury superimposed on chronic renal failure stage 3, present on admission, active -patient has chronic renal failure with baseline creatinine at 1.3. Creatinine is elevated today at 1.65. EGFR is 44.7 and BUN creatinine ratio is 19. -the patient underwent multiple CT scans however no contrast was used. -will gently hydrate the patient with normal saline and re-evaluate renal function. -Creat 1.52 on 11/28 4. Elevated blood pressure without diagnosis of hypertension, acute, present on admission, active. -patient reports his blood pressure typically running in the 120s. On presentation to the ER he has a blood pressure 160/92 rising as high as 192/113. -while in the ER the patient received metoprolol succinate 25 mg, lisinopril 10 mg and hydralazine 5 mg with minimal of affect. Blood pressure on arrival the floor was 164/101. -ordered hydralazine 10 mg IV as needed for systolic blood pressure greater than 180 or diastolic pressure greater than 100. -ordered oxycodone 5 mg for pain management. -initiate intermittent acute porphyria workup and losartan/metoprolol. 5. Gastroesophageal reflux disease, chronic, stable -ordered Protonix 40 mg IV x1 and Protonix 40 mg daily VTE prophylaxis: SCDs IV fluid: Normal saline 50 cc/hour Diet: Heart healthy Code status: Full code, the patient designates to be surrogate decision maker.
--- NOTE | 2020-11-28 12:09 | CM.DANOTE ---
Discharge Planning/Care Management DCP: assessment: case received, EMR reviewed and discussed briefly in Team Rounds. Dr. Sharma will follow pt today as hospitalist. He reports he expects pt will be able to d/c to home and with no needs beyond outpt followup. Pt is a 50 year old male who admitted early this mornin to care of hospitalist team. PCP: Shirley Pineda/oncologist Payer: Karan Riggs Full dx and POC are in process at this time. Will be following as more is known to assist with any d/c needs that may arise. Pt is on current chemotherapy every 3 weeks and was referred to by his oncologist. CM Discharge Assessment Start: 11/28/20 12:08 Freq: Status: Active Protocol: Document 11/28/20 12:08 ITV (Rec: 11/28/20 12:09 ITV [id number]) Discharge Planning Assessment Advance Directives? No History Provided By Patient,Medical Record Prior Living Arrangements House Household Members spouse Is patient alert and oriented? Yes
[2020-11-28] MEDS: METOPROLOL ER 50 MG TABLET PO (12:23)
[2020-11-28] MEDS: OXYCODONE IR 5 MG TABLET PO ×2 (12:24→20:15)
[2020-11-28] MEDS: LOSARTAN 50 MG TABLET PO (12:24)
[2020-11-28 12:41] LABS: Bacteria Urine None Seen
[2020-11-28 12:43] LABS: Appearance Urine UA SL CLOUDY; Bilirubin Urine UA NEGATIVE (NEGATIVE); Color Urine UA YELLOW; Glucose Urine UA NEGATIVE (Negative); Ketones Urine UA NEGATIVE (NEGATIVE); Leukocyte Esterase Urine UA NEGATIVE (NEGATIVE); Nitrite Urine UA NEGATIVE (Negative); Occult Blood Urine UA 2+ (Negative); Protein Urine UA 3+ (Negative); Specific Gravity Urine UA 1.015 (1.000-1.035); Urobilinogen Urine UA 0.2 E.U./dL (0.2); pH Urine UA 6.5 (4.5-8.0)
[2020-11-28 12:53] LABS: Amorphous Sediment Urine 1+; Hyaline Casts Urine 1-5/LPF; RBC Urine 5-10/HPF (0-5/HPF); Squamous Epithelial Cell Urine 0-1 /HPF (0-5/HPF); WBC Urine 0-1/HPF (0-5/HPF)
[2020-11-28 12:54] LABS: Culture Indicated Urine Cult Not Indicated
[2020-11-28] MEDS: HYDRALAZINE 20 MG/ML VIAL 10 MG IV ×2 (13:57→20:18)
--- NOTE | 2020-11-28 14:03 | PC.NURSE ---
Patient A/O x 4, denies SOB, chest pain, dizziness or lightheadedness. Denies pain in his upper gastric region, c/o headache 02/14. PRN Tylenol administered, reassessed, PRN Oxy administered. Patient reports pain is tolerable. BP elevated, prescribed Metoprolol and Losartan administered, BP rechecked, remains elevated 168/102 at 1316 and 167/95 at 1346. Hydralazine 10 mg IV administered per MD. NS infusing at 75cc/hr, patient voiding.
[2020-11-28] MEDS: ONDANSETRON 4 MG/2 ML INJ IV (15:47)
[2020-11-29] VITALS (11 sets, daily range): BP systolic 136–153; BP diastolic 67–98; PULSE 61–70; RESP 16; TEMP 36.7–37.2; O2SAT 99–100
[2020-11-29 05:59] LABS: Add Manual Diff / Slide Review NO; Basophils Absolute Auto 100 /uL (0-100); Basophils Percent Auto 1.3 % (0-2); Eosinophils Absolute Auto 100 /uL (0-450); Eosinophils Percent Auto 1.2 % (2-4); Hematocrit 26.6 % (41-53); Lymphocytes Absolute Auto 1600 /uL (1100-4500); Mean Corpuscular HGB Conc 33.7 % (30-36); Mean Corpuscular Hemoglobin 29.9 PG (26-34); Mean Corpuscular Volume 88.8 fL (80-100); Monocytes Absolute Auto 500 /uL (0-900); Monocytes Percent Auto 7.2 % (3-14); Neutrophils Absolute Auto 5100 /uL (1500-7000); Neutrophils Percent Auto 68.3 % (50-75); Platelet Count 50 X10^3/uL (150-400); Red Blood Cell Count 2.99 X10^6/uL (4.5-5.9); Red Cell Distribution Width 13.6 % (11.6-14.8); White Blood Cell Count 7.4 X10^3/uL (4.5-11.0)
[2020-11-29 06:09] LABS: Alanine Aminotransferase 15 IU/L (<50); Albumin 2.4 g/dL (3.5-5.0); Albumin Globulin Ratio 1.2 (1.0-2.8); Alkaline Phosphatase 34 U/L (38-126); Aspartate Aminotransferase 24 IU/L (17-59); BUN Creatinine Ratio 18.8 (6-22); Bilirubin Total 0.6 mg/dL (0.2-1.3); Blood Urea Nitrogen 28 mg/dL (9-20); Carbon Dioxide 24 mmol/L (22-32); Chloride 110 mmol/L (98-107); Estimated Glomerular Filt Rate 50.3 mL/min (>60); Glucose 97 mg/dL (70-100); HEMOLYSIS < 15 (0-50); Sodium 134 mmol/L (137-145); Total Protein 4.4 g/dL (6.3-8.2)
[2020-11-29] MEDS: PANTOPRAZOLE 40 MG VIAL IV (08:52)
[2020-11-29] MEDS: ONDANSETRON 4 MG/2 ML INJ IV (08:52)
--- NOTE | 2020-11-29 09:01 | PM.DS.1 ---
History of Present Illness History of Present Illness Date Patient Seen: 11/29/20 Time Patient Seen: 09:03 Chief complaint: chest pain Narrative: Mr. Naeem Parnell is a 50-year-old male with a past medical history of metastatic colon cancer status post hemicolectomy (2017), liver metastases status post livermetastasectomy (2017), on chemotherapy, GERD and sleep apnea presents to the ER with right upper quadrant abdominal pain for 6 hours. The patient was seen by Dr. Pineda earlier today and had undergone imaging and lab work. His last chemotherapy treatment with Avastin was canceled due to low platelets. Patient states he was told that time that his liver appeared enlarged. Following appointment he continued to his daily activities and went home and ate dinner after which she began experiencing right upper quadrant abdominal pain. The patient denies complaints of fevers or chills, he reports jaw pain that precipitated headache for 2 days earlier this week and over the previous weekend had nausea. He states that this abdominal pain is new and also endorses right posterior lateral chest wall pain. He denies complaints of palpitations and has had no shortness of breath cough wheezing. He has abdominal pain as above denies cramping hematochezia or melena. Diarrhea or constipation. He denies urinary difficulties or hematuria. Upon arrival the ER the patient is afebrile with temperature 98.1?, heart rate of 67, blood pressure 168/92 which during the hospital stay elevated to 192/113, respirations 16 saturating 98% on room air. Chest x-ray is obtained with no acute findings, CT of the soft tissue of the neck, CT of the head and CT of the chest abdomen pelvis are all unremarkable with no evidence of metastatic disease. Twelve lead EKG is obtained finding a sinus rhythm at 69 without ectopy or block, ST or T-wave changes. On laboratory analysis patient has a white count of 6.7 with no shift, hemoglobin of 9.2, hematocrit of 27.9 and platelets of 57. His coagulation studies are all within normal limits his chemistries are notable for a BUN of 31 and creatinine 1.65 with an EGFR 44.7. His liver functions are also within normal limits as an albumin that is low at 2.8. His total CK is 234, CK-MB is 0.91 for an index of 0.4%. His troponin is 0.017. As above the patient developed persistent hypertension while in the ER and was given metoprolol succinate 25 mg, aspirin 320 mg lisinopril and hydralazine with no significant improvement. The patient is admitted to the hospital service for abdominal pain and hypertension. Discharge Providers Provider Date of admission: 11/28/20 03:01 Discharge Date: 11/29/20 Primary care physician: Shirley Pineda MD Consults: 11/28/20 05:43 Consult to Discharge Planning Routine Comment: Discharge provider: Renee Sharma MD Summary Hospital Course Discharge Diagnosis: 1. Right upper quadrant abdominal pain 2. Metastatic colon cancer 3. Acute kidney injury superimposed on chronic renal failure stage 3 4. Elevated blood pressure without diagnosis of hypertension 5. Gastroesophageal reflux disease Code status: Full code, the patient designates to be surrogate decision maker. Hospital Course: 1. Right upper quadrant abdominal pain, acute, present on admission, active -patient with IV upper quadrant pain seen by Dr. Pineda his oncologist 11/27 who felt the patient's liver was large. Liver margin is palpable 1 cm below the costal margin but does not necessarily feel large today. -CT of the chest abdomen pelvis no significant findings in the liver other than a 3 mm hypodensity in the right hepatic lobe is unchanged, no ductal dilatation. The patient had previous hepatic metastases that were surgically removed at the [facility]. -total bilirubin is 0.4, AST 48, ALT 23 and alkaline phosphatase 55. White count is normal at 6.7 without shift. -pain has resolved by the day of discharge 11/29 -pending workup for acute intermittent porphyria. Plasma total porphyrins to be followed up by Oncology or primary care. 2. Metastatic colon cancer, chronic, stable - differentiated adenocarcinoma of the colon and has undergone hemicolectomy and then has undergone subsequent colonoscopy in July of 2020 with identification of benign polyp without evidence of recurrence. -patient is receiving chemotherapy with Avastin every 3 weeks. Last dose was held due to low platelet count. -patient is anemic with a hemoglobin stable at 9.0 and platelets of 50 on the day of discharge 11/29. 3. Acute kidney injury superimposed on chronic renal failure stage 3, present on admission, active -patient has chronic renal failure with baseline creatinine at 1.3. Creatinine after IV hydration is down to 1.49 from a high of 1.65. -the patient underwent multiple CT scans however no contrast was used. -Recommend outpatient referral for Nephrology consultation 4. Elevated blood pressure without diagnosis of hypertension, acute, present on admission, active. -patient reports his blood pressure typically running in the 120s. On presentation to the ER he has a blood pressure 160/92 rising as high as 192/113. -while in the ER the patient received metoprolol succinate 25 mg, lisinopril 10 mg and hydralazine 5 mg with minimal of affect. Blood pressure on arrival to the floor was 164/101. -ordered hydralazine 10 mg IV as needed for systolic blood pressure greater than 180 or diastolic pressure greater than 100. -ordered oxycodone 5 mg for pain management. -blood pressure has normalized the day of discharge 11/29 so will continue losartan/metoprolol. I discussed with him that his blood pressure may return to normal and he may not need 1 or both of these medications so this will need to be followed up closely with his primary care physician. He indicates that he does not have a primary care physician so will follow this up with home blood pressure monitoring and with his oncologist Dr. Pineda -pending workup for acute intermittent porphyria. Plasma total porphyrins to be followed up by Oncology or primary care. 5. Gastroesophageal reflux disease, chronic, stable -Protonix 40 mg daily along with as needed Reglan. Full code, the patient designates to be surrogate decision maker. Exam Vital Signs (past 8 hours): - 11/29/20 02:40 11/29/20 04:35 11/29/20 06:11 Temperature 98.8 F Pulse Rate 61 Respiratory Rate 16 Blood Pressure 136/67 Pulse Oximetry 99 99 99 11/29/20 08:45 Temperature 98.1 F Pulse Rate 65 Respiratory Rate 16 Blood Pressure 148/98 H Pulse Oximetry 100 Oxygen Delivery Method Room Air Oxygen Flow Rate 0 Narrative Exam Narrative: He is alert and oriented x3. He says that he feels much better and that there is no abdominal pain. Heart is regular rate rhythm without murmur. Lungs are clear to auscultation bilaterally. Abdomen is soft, bowel sounds positive, nontender, no organomegaly. Extremities have no ankle edema Objective Labs Result Diagrams: 11/29/20 05:46 11/29/20 05:46 Labs: Laboratory Results - last 24 hr 11/28/20 11/29/20 11/29/20 12:24 05:46 05:46 WBC 7.4 RBC 2.99 L Hgb 9.0 L Hct 26.6 L MCV 88.8 MCH 29.9 MCHC 33.7 RDW 13.6 Plt Count 50 L Neut % (Auto) 68.3 Lymph % (Auto) 22.0 L [place] % (Auto) 7.2 Eos % (Auto) 1.2 L Baso % (Auto) 1.3 Neut # (Auto) 5100 Lymph # (Auto) 1600 [place] # (Auto) 500 Eos # (Auto) 100 Baso # (Auto) 100 Sodium 134 L Potassium 4.0 Chloride 110 H Carbon Dioxide 24 BUN 28 H Creatinine 1.49 H Estimated GFR 50.3 L BUN/Creatinine Ratio 18.8 Glucose 97 Calcium 7.0 L Total Bilirubin 0.6 AST 24 ALT 15 Alkaline Phosphatase 34 L Total Protein 4.4 L Albumin 2.4 L Globulin 2.0 Albumin/Globulin Ratio 1.2 Urine Color Yellow Urine Appearance Sl cloudy Urine pH 6.5 Ur Specific [place] 1.015 Urine Protein 3+ H Urine Glucose (UA) Negative Urine Ketones Negative Urine Occult Blood 2+ H Urine Nitrate Negative Urine Bilirubin Negative Urine Urobilinogen 0.2 Ur Leukocyte Esterase Negative Urine RBC 5-10/hpf H Urine WBC 0-1/hpf Ur Squamous Epith Cells 0-1 /hpf Amorphous Sediment 1+ Urine Bacteria None seen Hyaline Casts 1-5/lpf Other Casts Ur Culture Indicated? Cult not indicated PFSH Medical History GERD (gastroesophageal reflux disease) Malignant neoplasm of colon Sleep apnea Surgical History H/O right hemicolectomy History of surgery of liver S/P cervical spinal fusion Family History (Updated 11/28/20 @ 05:53 by DESTINEE Mancera) Mother Hypertension Coronary artery disease Social History household members: spouse Smoking Status: Current every day smoker Discharge Plan Discharge Plan Patient Disposition: Home Nursing Discharge Comment: Follow up blood pressure with Dr. Pineda in the next week. Recommend Nephrology Consultation for CKD. Discharge orders & Medications Prescriptions: New losartan 50 mg Tablet 50 mg PO DAILY Qty: 30 RF: 0 metoprolol succinate 50 mg Tablet Extended Release 24 Hr 50 mg PO DAILY Qty: 30 RF: 0 Continued Avastin 25 mg/mL Solution 25 mg IV Q3W RF: 0 Follow up/Referrals: Shirley Pineda MD [Primary Care Provider] - Diet/Activity/Treatments Diet: Regular Visit Report/Discharge Packet Instructions: Treatments for High Blood Pressure: More Than Just Taking a Pill Discharge Data Primary Care Provider: Shirley Pineda Attending Provider: Sal Henriquez
[2020-11-29] MEDS: METOPROLOL ER 50 MG TABLET PO (09:24)
[2020-11-29] MEDS: LOSARTAN 50 MG TABLET PO (09:24)
[2020-11-29] MEDS: METOCLOPRAMIDE 10 MG/2 ML INJ IV (12:02)
--- NOTE | 2020-11-29 12:17 | CM.DPC ---
Addendum entered by Dawna Gleason LPN 11/29/20 13:49: Pt now with nausea/vomiting. has gone home and will return. Pt will have shower after resting, trial oral intake and d/c home later if he is stable for same. Will check in again tomorrow if he is still here. Original Note: DCP: continued: Pt is going home today as planned. Dr. Sharma stressed importance of having a PCP in addition to his oncologist. Pt's spouse is aware of this and need for nephrology followup and has assured Dr. Sharma that she will assist her with this.
--- NOTE | 2020-11-29 12:25 | PC.NURSE ---
Pt reported headache and requesting tylenol, prior to administering tylenol he vomited 225 of clear/green emesis. IV reglan given. Checked pt's status 15 minutes later, he reports feeling a little better but would like to wait to take tylenol. Instructed him to call me when he feels ready to take tylenol. Also requested to shower prior to being discharged, will remove IV once taking PO food and medication w/out N/V, then will set up for shower.
[2020-11-29] MEDS: ACETAMINOPHEN 325 MG TABLET 650 MG PO (13:20)
--- NOTE | 2020-11-29 14:32 | PC.NURSE ---
Pt discharge instructions given to pt and , discussed- f/u appts, hypertention education, reason to call provider, stroke education, and medications. Tele removed. Pt showered, then dressed independently. IV removed, intact, pt tolerated well. All belongings given to pt and . Pt brought to POV via wheelchair by RNMeryl.
[2020-12-05 07:22] LABS: Porphyrins, Total Plasma <0.1 ug/dL (0.0-1.0)
== END 2020-11-29 14:38 | disposition home or self-care (01) ==
LOC: ED 11-28 00:17 → AC 11-28 03:01
PROVIDERS: Family Medicine; Admitting Provider Nurse Practitioner Adult Health; Emergency Provider Emergency Medicine; PCP Internal Medicine Hematology & Oncology; Referring Provider Emergency Medicine; Visit Provider Nurse Practitioner Adult Health
DX: R10.11 Right upper quadrant pain (principal); C18.9 Malignant neoplasm of colon, unspecified; C78.7 Secondary malignant neoplasm of liver and intrahepatic bile duct; R03.0 Elevated blood-pressure reading, without diagnosis of hypertension; N17.9 Acute kidney failure, unspecified; N18.30 Chronic kidney disease, stage 3 unspecified; G47.30 Sleep apnea, unspecified; Z90.49 Acquired absence of other specified parts of digestive tract; K21.9 Gastro-esophageal reflux disease without esophagitis; Z20.822 Contact with and (suspected) exposure to COVID-19
CPT/HCPCS: 36415; 71045; 80048; 80053; 81001; 82550; 82553; 83690; 83735; 84311; 84484; 85025; 85610; 85730; 87635; 93005; 96361; 96374; 96375; 96376; 99283; 99284; C9803; G0378; C9113; J0360; J2405; J2765

== ENCOUNTER → 2021-08-21 09:18 | Outpatient (CLI) | payer OTHER, SELFPAY ==
[2020-11-28 04:13] VITALS: BMI 24.5
[2021-08-21 11:16] LABS: COVID19 -Nasal RAPID Negative (Negative)
== END ==
PROVIDERS: Referring Provider Surgery; Visit Provider Surgery
DX: Z01.812 Encounter for preprocedural laboratory examination (principal); Z20.822 Contact with and (suspected) exposure to COVID-19
CPT/HCPCS: 87635; C9803

== ENCOUNTER 2021-08-24 08:50 | Day surgery (SDC) | payer OTHER, SELFPAY ==
[2020-11-28 04:13] VITALS: BMI 24.5
[2021-08-24] VITALS (9 sets, daily range): BP systolic 99–137; BP diastolic 57–83; PULSE 49–68; RESP 11–53; TEMP 36.2–36.8; O2SAT 97–100; BMI 23.6
[2021-08-24] MEDS: LACTATED RINGERS 1,000 ML 200 ML IV (09:25)
--- NOTE | 2021-08-24 09:42 | PM.HP.1 ---
History of Present Illness History of Present Illness Date Patient Seen: 08/24/21 Time Patient Seen: 09:43 Chief complaint: DX COLONOSCOPY Narrative: 51-year-old man history of metastatic colon cancer status post right hemicolectomy and liver resection 2016. He is doing well he is here for interval surveillance colonoscopy. Last colonoscopy 1 year ago was normal. No current abdominal pain nausea vomiting or diarrhea. Patient History Medical History GERD (gastroesophageal reflux disease) Malignant neoplasm of colon Sleep apnea Surgical History H/O right hemicolectomy History of surgery of liver S/P cervical spinal fusion Family & Social History Family History Mother Hypertension Coronary artery disease Social History: household members spouse Tobacco & Substance use: Tobacco type cigarettes Smoking Status Current every day smoker Smoking packs per day 0.25 alcohol intake frequency a few times a month Substance Use Type does not use Meds Home Medications and Allergies Home Medications Medication Instructions Recorded Confirmed Type bevacizumab 25 mg/mL intravenous 25 mg IV Q3W 08/04/20 01/08/21 History solution (Avastin) lorazepam 0.5 mg tablet 0.5 mg PO BID PRN #20 tab 11/29/20 01/08/21 Rx metoclopramide HCl 5 mg tablet 5 mg PO Q6H PRN #30 tab 11/29/20 01/08/21 Rx (Reglan) metoprolol succinate 50 mg 50 mg PO DAILY #30 tab 12/25/20 01/08/21 Rx tablet,extended release 24 hr losartan 100 mg tablet 100 mg PO DAILY 02/19/21 02/19/21 History nitroglycerin 0.6 mg sublingual 0.6 mg SUBLINGUAL Q5M PRN #12 tab 02/19/21 Rx tablet amlodipine 10 mg tablet 10 mg PO DAILY 03/12/21 03/12/21 History calcitriol 0.25 mcg capsule 0.25 mcg PO DAILY 03/12/21 03/12/21 History magnesium 250 mg tablet 250 mg PO DAILY 04/30/21 04/30/21 History Allergies Allergy/AdvReac Type Severity Reaction Status Date / Time No Known Drug Allergies Allergy Verified 08/04/20 07:41 Exam Vital Signs (past 8 hours): - 08/24/21 09:14 Temperature 98.3 F Pulse Rate 56 L Respiratory Rate 18 Blood Pressure 137/83 Pulse Oximetry 100 Oxygen Delivery Method Room Air Narrative Exam Narrative: General adult male alert oriented no acute distress Chest nonlabored respirations Abdomen soft nontender nondistended Extremities warm well perfused Assessment & Plan Assessment and plan (1) Malignant neoplasm of colon: Problem details: 49year-old man with metastatic colon cancer. Status: Chronic Assessment & Plan narrative: 51-year-old man history of metastatic colon cancer status post right hemicolectomy and liver resection here for surveillance colonoscopy. Technical details were discussed. Risks, benefits, alternatives explained. Risks including but not limited to myocardial infarction, aspiration, bleeding, pain, missed lesion, incomplete examination, need for further radiographic studies, colonic perforation, and need for major abdominal surgery were discussed. All questions were answered to their satisfaction, and they are in agreement with this plan. Time Spent With Patient Critical Care time: I spent a total of [] minutes of critical care time on this patient's care today; this time is exclusive of procedural time.
[2021-08-24] MEDS: MIDAZOLAM 5 MG/5 ML VIAL IV (09:48)
[2021-08-24] MEDS: fentaNYL 250 MCG/5 ML INJ IV (09:48)
--- NOTE | 2021-08-24 10:03 | PM.OP.COLON ---
Operative Date/Time/Diagnoses Date of procedure: 08/24/21 Time of procedure: 10:04 Pre-op diagnosis: History of Metastatic colon cancer Post-op diagnosis: same Procedure & Clinicians Study performed: Colonoscopy Same procedure as scheduled: Yes Indications: Surveillance, history of metastatic colon cancer Surgeon: Neri Bird Procedure Notes Procedure in detail: Medications: Conscious sedation using 5mg IV midazolam and 150mcg IV of fentanyl The history and physical was performed/updated and the patient is ASA class is 2. The procedure was discussed in detail with the patient. Potential risks complications including infection, bleeding, missed diagnosis, perforation, need for surgery, and were explained. Their questions were answered and informed consent was obtained. Patient was brought to the procedure room and placed standard monitoring equipment. The patient's vital signs were monitored continuously throughout the entire procedure. Prior to starting time-out was performed. The patient was placed in the left lateral recumbent position. Procedural sedation was administered. Examination began with a thorough inspection of the perianal area there was no evidence of fissures, fistulae, external hemorrhoids or cutaneous malignancy. The colonoscopy scope was then placed into the anal canal and was advanced forward. A ileocolonic anastamosis was widely patent. The scope was then slowly withdrawn examining colon thoroughly in all directions, irrigating it of any residual stool. FINDINGS 1. No masses or polyps 2. Sigmoid diverticulosis The patient tolerated the procedure well. They will be discharged once criteria are met. The prep was of good/excellent quality. The withdrawl time was 6 minutes. The sedation time was 12 minutes. Specimen(s): none sent Complications: none Impression: normal colonoscopy Post-procedure Recommendations: Colonoscopy in 1 year Disposition: same day surgery
== END 2021-08-24 11:45 | disposition home or self-care (01) ==
PROVIDERS: PCP Physician Assistant; Referring Provider Surgery; Visit Provider Surgery
PROC: 0DJD8ZZ Inspection of Lower Intestinal Tract, Via Natural or Artificial Opening Endoscopic (ICD-10-PCS; CPT 45378; principal; 2021-08-24 10:00)
DX: Z12.11 Encounter for screening for malignant neoplasm of colon (principal); Z85.038 Personal history of other malignant neoplasm of large intestine; Z90.49 Acquired absence of other specified parts of digestive tract; G47.30 Sleep apnea, unspecified; K21.9 Gastro-esophageal reflux disease without esophagitis; K57.30 Diverticulosis of large intestine without perforation or abscess without bleeding
CPT/HCPCS: 45378; 99152; J2250; J3010

== ENCOUNTER → 2021-09-01 15:49 | Outpatient (CLI) | payer OTHER, SELFPAY ==
[2020-11-28 04:13] VITALS: BMI 24.5
--- NOTE | 2021-09-01 | DI.ECHO.S_ITS ---
[facility]---------+ [facility] +---------+ : : [address] : [address] : : : : [id number] : : : : Phone: [phone] Echocardiogram Report + + :Name: MEME ANGLIN Study Date: 09/01/2021 Height: 68 in : :[facility] ReadingLocation: Weight: 155 lb : : Gender: Male BSA: 1.8 m2 : :: 1970 Age: 51 yrs BP: 129/80 mmHg: :Reason For Study: SHORTNESS OF BREATH : :Ordering Physician: TAO, : :FORD Performed By: Phuong Jarrell : :Referring: FORD AUGUSTE : + + Interpretation Summary 1) Normal left ventricular thickness, size, wall motion, and systolic function (EF 55-60%). Left ventricular global longitudinal strain average is -21.5% (normal). 2) Normal right ventricular size and function. 3) No significant valvular abnormalities. 4) The right ventricular systolic pressure is estimated to be at least 27 mmHg based on an estimated right atrial pressure of 3 mm Hg. 5) No prior Echo available for comparison. Procedure: A two-dimensional transthoracic echocardiogram with color flow and Doppler was performed. The study quality was technically good. There is no prior echocardiogram noted for this patient. The patient was in sinus bradycardia with heart rates between 49-56 bpm during the exam. Left Ventricle: The left ventricle is normal in size. There is normal left ventricular wall thickness. The ejection fraction is estimated to be 55-60%. Left ventricular global longitudinal strain average is -21.5%. Left ventricular systolic function appears normal without focal wall motion abnormalities. Right Ventricle: The right ventricle is normal in size and function. Atria: The left atrium is moderately dilated. Right atrial size is normal. Doppler evidence suggests a left to right interatrial shunt. Mitral Valve: The mitral valve is normal in structure and function. There is trace mitral regurgitation. Aortic Valve: The aortic valve is trileaflet. The aortic valve opens well. There is no aortic valve stenosis. No aortic regurgitation is present. Tricuspid Valve: The tricuspid valve is normal in structure and function. There is mild tricuspid regurgitation. The right ventricular systolic pressure is estimated to be at least 27 mmHg based on an estimated right atrial pressure of 3 mm Hg. Pulmonic Valve: The pulmonic valve is normal in structure and function. There is trace pulmonic regurgitation. Great Vessels: The aortic root is normal size. The dimensions of the ascending aorta are normal. The IVC is of normal diameter and collapses greater than 50% with a sniff. This suggests a low right atrial pressure of 3 mm Hg. Pericardium/ Pleura There is no pericardial effusion. There is no pleural effusion. MMode/2D Measurements & Calculations LVIDd: 4.8 cm LVOT diam: 2.2 cm LVIDs: 3.1 cm Ao root diam: 3.1 cm FS: 34.9 % asc Aorta Diam: 3.2 cm IVSd: 0.73 cm Ao Arch Diam (Prox Trans): 2.6 cm LVPWd: 0.76 cm LV gonsalez. diameter/BSA (cm/m^2): 2.6 LV sys. diameter/BSA (cm/m^2): 1.7 LA A2 area: 23.6 cm2 RA long axis: 5.1 cm LA A4 area: 19.9 cm2 RA area: 16.9 cm2 LA length (vol): 5.1 cm RA vol: 48.1 ml LA vol: 78.2 ml RA : 26.2 ml/m2 LA vol index: 42.6 ml/m2 IVC diam: 1.5 cm RVD1 (basal): 3.8 cm TAPSE: 2.0 cm Doppler Measurements & Calculations Ao V2 max: 123.2 cm/sec LVOT Max Jozef: 98.7 cm/sec Ao V2 mean: 90.1 cm/sec LV V1 max P.9 mmHg Ao max P.1 mmHg LV V1 VTI: 20.9 cm Ao mean P.5 mmHg FELICITA(I,D): 2.8 cm2 Ao V2 VTI: 29.1 cm FELICITA(V,D): 3.2 cm2 sev ratio: 0.72 FELICITA indexed to BSA (cm^2/m^2): 1.6 MV E max jozef: 66.6 cm/sec TR max jozef: 246.1 cm/sec MV A max jozef: 44.2 cm/sec TR max P.2 mmHg MV E/A: 1.5 PA V2 max: 96.1 cm/sec Med Peak E' Jozef: 10.3 cm/sec PA V2 mean: 70.4 cm/sec E/E' med: 6.5 PA mean P.2 mmHg Lat Peak E' Jozef: 14.2 cm/sec PA pr(Accel): -6.6 mmHg E/E' lat: 4.7 E/e' average: 5.6 MV dec time: 0.14 sec SV(LVOT): 82.9 ml Reading Physician:11:10 AM
== END ==
PROVIDERS: PCP Physician Assistant; Referring Provider Internal Medicine Cardiovascular Disease; Visit Provider Internal Medicine Cardiovascular Disease
DX: I07.1 Rheumatic tricuspid insufficiency (principal); R06.02 Shortness of breath
CPT/HCPCS: 93306

== ENCOUNTER → 2021-09-22 12:44 | Outpatient (CLI) | payer OTHER, SELFPAY ==
[2020-11-28 04:13] VITALS: BMI 24.5
--- NOTE | 2021-09-22 12:46 | DI.CT.S_ITS ---
PROCEDURE: CT CHEST ABD PEL WO CON INDICATIONS: metastatic colon cancer TECHNIQUE: After the administration of oral contrast, 5 mm thick sections acquired from the lung apices to the symphysis pubis. 5 mm thick coronal and sagittal reformats acquired, with additional 7 mm coronal MIP reformats through the lungs. For radiation dose reduction, the following was used: automated exposure control, adjustment of mA and/or kV according to patient size. COMPARISON: [facility], CT, CT CHEST ABD PEL WO CON, 11/27/2020, 15:30. FINDINGS: Image quality: Diagnostic CHEST: Lungs and pleura: No acute pulmonary opacities. No suspicious pulmonary nodules or masses. No septal thickening or nodularity. No pleural effusions or pneumothorax. Central and peripheral airways are patent are normal in caliber. Mediastinum: Heart size is normal. No pericardial effusion. No mediastinal adenopathy by CT size criteria. Thoracic aorta and central pulmonary arteries are normal in size. Esophagus is normal in caliber. No hiatal hernia. Left tunneled port device is unchanged in positioning. Chest wall: No axillary or supraclavicular adenopathy by size criteria. Thyroid gland is unremarkable. . ABDOMEN: Solid organs: Liver is normal in size. Stable 3 mm nonspecific peripheral right hepatic lobe hypodensity best seen on image 67/series 2. Multiple coils are noted in the hepatic dome compatible with prior treatment. No new hepatic lesions identified in this noncontrast study. Gallbladder is surgically absent . Pancreas is normal in contours. Spleen is normal in size. No adrenal nodules. Both kidneys are normal in size, without hydronephrosis or nephrolithiasis. Multiple bilateral renal cysts are present. Largest is noted in the right kidney measuring 2.9 x 3.6 cm and measuring fluid attenuation. Peritoneum and bowel: Stable postsurgical changes from right hemicolectomy with anastomotic sutures seen near the transverse colon. Small bowel loops appear unremarkable. Stomach and duodenum are also unremarkable in appearance. No free fluid or air. Nodes and vessels: No retroperitoneal or mesenteric adenopathy by size criteria. Aorta and inferior vena cava are normal in size. Scattered atherosclerotic calcifications of the abdominal aorta and proximal common iliac arteries. Miscellaneous: No ventral hernias. PELVIS: Genitourinary: Bladder wall thickness is normal. Miscellaneous: No inguinal hernias or adenopathy. Bones: No suspicious bony lesions. No acute vertebral body compression fractures. IMPRESSION: 1. CT chest, abdomen, and pelvis without acute abnormalities. No evidence for disease recurrence or metastatic disease to the chest, abdomen, or pelvis. 2. Stable postoperative changes of right hemicolectomy. No evidence for local recurrence. 3. Stable post treatment changes of the hepatic dome. 4. Status post cholecystectomy. 5. Atherosclerosis. Dictated by: Nate German M.D. on 09/22/2021 at 17:27 Approved by: Nate German M.D. on 09/22/2021 at 17:40
== END ==
PROVIDERS: PCP Physician Assistant; Referring Provider Internal Medicine Hematology & Oncology; Visit Provider Internal Medicine Hematology & Oncology
DX: C18.2 Malignant neoplasm of ascending colon (principal); N28.1 Cyst of kidney, acquired; I70.0 Atherosclerosis of aorta; Z90.49 Acquired absence of other specified parts of digestive tract
CPT/HCPCS: 71250; 74176

== ENCOUNTER → 2022-02-22 09:30 | Outpatient (CLI) | payer OTHER, SELFPAY ==
[2020-11-28 04:13] VITALS: BMI 24.5
[2022-02-22 11:05] LABS: BUN Creatinine Ratio 15.4 (6-22); Blood Urea Nitrogen 22 mg/dL (9-20); Calcium 8.4 mg/dL (8.4-10.2); Carbon Dioxide 24 mmol/L (22-32); Chloride 112 mmol/L (98-107); Estimated Glomerular Filt Rate 60 mL/min (>60); Glucose 99 mg/dL (70-100); HEMOLYSIS < 15 (0-50); Magnesium 2.1 mg/dL (1.6-2.3); Potassium 4.4 mmol/L (3.4-5.1); Sodium 141 mmol/L (137-145)
[2022-02-22 11:46] LABS: Creatinine Urine Random 215.1 mg/dL; Protein (Total) Urine Random 88 mg/dL (0-12)
[2022-02-23 09:14] LABS: Parathyroid Hormone Int 24 pg/mL (15-65)
== END ==
PROVIDERS: Referring Provider Student in an Organized Health Care Education/Training Program; Visit Provider Student in an Organized Health Care Education/Training Program
DX: N05.9 Unspecified nephritic syndrome with unspecified morphologic changes (principal); R80.9 Proteinuria, unspecified; N25.81 Secondary hyperparathyroidism of renal origin; E83.40 Disorders of magnesium metabolism, unspecified
CPT/HCPCS: 36415; 80048; 82570; 83735; 83970; 84156

== ENCOUNTER → 2022-03-15 12:53 | Outpatient (CLI) | payer OTHER, SELFPAY ==
[2020-11-28 04:13] VITALS: BMI 24.5
--- NOTE | 2022-03-15 13:38 | DI.CT.S_ITS ---
PROCEDURE: CT CHEST ABD PEL WO CON INDICATIONS: metastatic colon cancer TECHNIQUE: After the administration of oral contrast, 5 mm thick sections acquired from the lung apices to the symphysis pubis. 5 mm thick coronal and sagittal reformats acquired, with additional 7 mm coronal MIP reformats through the lungs. For radiation dose reduction, the following was used: automated exposure control, adjustment of mA and/or kV according to patient size. COMPARISON: [facility], CT, CT CHEST ABD PEL WO CON, 09/22/2021, 14:00. FINDINGS: Image quality: Excellent. CHEST: Lungs and pleura: No acute pulmonary opacities. No pleural effusions or pneumothorax. Central and peripheral airways are patent are normal in caliber. Mediastinum: Heart size is normal. No pericardial effusion. No mediastinal adenopathy by CT size criteria. Thoracic aorta and central pulmonary arteries are normal in size. Left kyra catheter with tip in SVC. Esophagus is normal in caliber. No hiatal hernia. Chest wall: No axillary or supraclavicular adenopathy by size criteria. Thyroid gland appears normal . ABDOMEN: Solid organs: Liver is normal in size. Redemonstrated hyperdensity in the right hepatic lobe, compatible with prior intervention. Gallbladder surgically absent . Pancreas is normal in contours. Spleen is normal in size. No adrenal nodules. Both kidneys are normal in size, without hydronephrosis or nephrolithiasis. Cortical hypoattenuating lesion is seen, measuring up to 3.7 cm, most consistent with cysts. Peritoneum and bowel: No evidence of intestinal obstruction or inflammatory change. Postsurgical change of the right colon. No free fluid or air. Nodes and vessels: No retroperitoneal or mesenteric adenopathy by size criteria. Aorta and inferior vena cava are normal in size. Miscellaneous: No ventral hernias. PELVIS: Genitourinary: The urinary bladder is not well distended. Miscellaneous: No inguinal hernias or adenopathy. Bones: Multifocal degenerative change. No suspicious bony lesions. No vertebral body compression fractures. IMPRESSION: No significant interval change or evidence of metastatic disease. PET/CT may be helpful for surveillance as clinically warranted. Dictated by: sOeas Flores M.D. on 03/15/2022 at 14:50 Approved by: Oseas Flores M.D. on 03/15/2022 at 14:59
== END ==
PROVIDERS: Referring Provider Internal Medicine Hematology & Oncology; Visit Provider Internal Medicine Hematology & Oncology
DX: C18.2 Malignant neoplasm of ascending colon (principal)
CPT/HCPCS: 71250; 74176

== ENCOUNTER 2022-04-12 08:49 | Emergency (ER) | payer OTHER, SELFPAY ==
[2020-11-28 04:13] VITALS: BMI 24.5
[2022-04-12 09:32] VITALS: BP 128/76; PULSE 65; RESP 18; TEMP 36.6; O2SAT 99; BMI 22.8
[2022-04-12 11:59] LABS: Add Manual Diff / Slide Review NO; Basophils Absolute Auto 100 /uL (0-100); Basophils Percent Auto 1.3 % (0-2); Eosinophils Absolute Auto 200 /uL (0-450); Eosinophils Percent Auto 3.5 % (2-4); Hematocrit 31.7 % (41-53); Hemoglobin 10.6 g/dL (13.5-17.5); Lymphocytes Absolute Auto 1400 /uL (1100-4500); Lymphocytes Percent Auto 22.1 % (25-40); Mean Corpuscular HGB Conc 33.5 % (30-36); Mean Corpuscular Volume 86.6 fL (80-100); Monocytes Absolute Auto 500 /uL (0-900); Monocytes Percent Auto 7.6 % (3-14); Neutrophils Absolute Auto 4200 /uL (1500-7000); Neutrophils Percent Auto 65.5 % (50-75); Platelet Count 178 X10^3/uL (150-400); Red Blood Cell Count 3.66 X10^6/uL (4.5-5.9); Red Cell Distribution Width 13.9 % (11.6-14.8); White Blood Cell Count 6.3 X10^3/uL (4.5-11.0)
[2022-04-12 12:16] LABS: Alanine Aminotransferase 10 IU/L (<50); Albumin 4.1 g/dL (3.5-5.0); Albumin Globulin Ratio 1.2 (1.0-2.8); Alkaline Phosphatase 57 U/L (38-126); Aspartate Aminotransferase 21 IU/L (17-59); BUN Creatinine Ratio 14.3 (6-22); Bilirubin Total 0.5 mg/dL (0.2-1.3); Blood Urea Nitrogen 20 mg/dL (9-20); Calcium 8.8 mg/dL (8.4-10.2); Carbon Dioxide 26 mmol/L (22-32); Chloride 107 mmol/L (98-107); Estimated Glomerular Filt Rate > 60 mL/min (>60); Globulin 3.3 g/dL (1.7-4.1); Glucose 92 mg/dL (70-100); HEMOLYSIS < 15 (0-50); Lipase 73 U/L (23-300); Potassium 4.4 mmol/L (3.4-5.1); Sodium 139 mmol/L (137-145); Total Protein 7.4 g/dL (6.3-8.2)
[2022-04-12] MEDS: SODIUM CHLORIDE 0.9% 1,000 ML 21 ML IV (12:45)
--- NOTE | 2022-04-12 12:56 | DI.CT.S_ITS ---
PROCEDURE: CT ABDOMEN PELVIS W CON INDICATIONS: ?changes w/ colon neoplasm; ? kidney stones TECHNIQUE: After the administration of intravenous contrast, axial sections acquired from the lung bases to the pubic symphysis. Coronal and sagittal reformats were performed. For radiation dose reduction, the following was used: automated exposure control, adjustment of mA and/or kV according to patient size. COMPARISON: [facility], CT, CT CHEST ABD PEL WO CON, 09/22/2021, 14:00. [facility], CT, CT CHEST ABD PEL WO CON, 03/15/2022, 13:49. FINDINGS: Image quality: Excellent. Lung bases: Unremarkable. Heart: No significant findings. ABDOMEN: Liver: Unchanged. Again noted are hepatic dome densities, possibly calcifications, and an inferior right hepatic lobe area of probable surgical clips and central hypodensity consistent with sequelae of treatment. No new or increasing liver lesions are identified.. Gallbladder: Unremarkable. Biliary ducts: Unremarkable. Pancreas: Unremarkable. Spleen: Unremarkable. Adrenal Glands: Unremarkable. Kidneys and Ureters: Unremarkable. Stomach and Bowel: Right colectomy clips. Stomach, small bowel loops, and colon are otherwise unremarkable Peritoneum: No abnormal intraperitoneal fluid. No free air. Ventral Wall: No hernias. Abdominal Nodes: No retroperitoneal or mesenteric adenopathy by size criteria. Vessels: Aorta and inferior vena cava are normal in size. PELVIS: Pelvic Organs: Unremarkable. Bladder: Unremarkable. Pelvic Nodes: No enlarged lymph nodes. Miscellaneous: No hernias are seen. Bones: Unremarkable. IMPRESSION: 1. Remote partial colectomy. 2. Findings in the liver consistent with post treatment changes. 3. No evidence of disease progression in the abdomen and pelvis. No new or increasing lesions. Dictated by: Gabriele De La Paz M.D. on 04/12/2022 at 13:23 Approved by: Gabriele De La Paz M.D. on 04/12/2022 at 13:30
--- NOTE | 2022-04-26 14:10 | ED_ITS ---
HPI - Back Pain/Injury <Nabila Arreguin PA-C - Last Filed: 04/26/22 14:26> General Chief Complaint: Back Pain/Injury Stated Complaint: States infection in nose, lower left back pain Time Seen by Provider: 04/12/22 12:10 Source: patient History of Present Illness HPI Narrative: 52-year-old male with past medical history malignant neoplasm of the colon presents to the ED with right-sided flank pain that wraps around to the right groin. Patient has a history of a partial colectomy from the colon cancer, stage 3 chronic kidney disease. Patient denies fever, chills, chest pain, shortness of breath, lightheadedness, dizziness, syncope. Patient also complains of dental pain at the site of a tooth extraction. Patient states that he has had multiple rounds of antibiotics from his dentist without relief. Patient endorses pain, foul taste. Related Data Home Medications Medication Instructions Recorded Confirmed bevacizumab 25 mg/mL intravenous 25 mg IV Q3W 08/04/20 12/03/21 solution (Avastin) losartan 100 mg tablet 100 mg PO DAILY 02/19/21 12/03/21 amlodipine 10 mg tablet 10 mg PO DAILY 03/12/21 12/03/21 calcitriol 0.25 mcg capsule 0.25 mcg PO DAILY 03/12/21 12/03/21 magnesium 250 mg tablet 250 mg PO DAILY 04/30/21 12/03/21 Previous Rx's Medication Instructions Recorded lorazepam 0.5 mg tablet 0.5 mg PO BID PRN anxiety #20 tabs 11/29/20 metoclopramide HCl 5 mg tablet 5 mg PO Q6H PRN nausea and 11/29/20 (Reglan) vomiting #30 tabs metoprolol succinate 50 mg 50 mg PO DAILY #30 tabs 12/25/20 tablet,extended release 24 hr nitroglycerin 0.6 mg sublingual 0.6 mg sublingual Q5M PRN CHEST 02/19/21 tablet PRESSURE / PAIN #12 tabs Allergies Allergy/AdvReac Type Severity Reaction Status Date / Time No Known Drug Allergies Allergy Verified 04/12/22 09:35 Review of Systems <Nabila Arreguin PA-C - Last Filed: 04/26/22 14:26> Review of Systems ROS Unobtainable: All systems reviewed & are unremarkable except as noted in HPI and below Constitutional Constitutional: Denies chills, Denies fatigue, Denies fever(s), Denies frequent falls, Denies lethargy and Denies weakness Eyes Eyes: Denies change in vision, Denies eye discharge, Denies irritation and Denies loss of vision ENT Ears, Nose, Mouth, and Throat: Denies change in voice, Reports dental pain, Denies dizziness, Denies neck pain, Denies sore throat and Denies throat swelling Cardiovascular Cardiovascular: Denies chest pain, Denies irregular heart rhythm, Denies lightheadedness, Denies palpitations, Denies dyspnea, Denies dyspnea on exertion and Denies orthopnea Respiratory Respiratory: Denies cough, Denies dyspnea, Denies dyspnea on exertion and Denies wheezing Gastrointestinal Gastrointestinal: Denies abdominal pain, Denies change in bowel habits, Denies diarrhea, Denies nausea and Denies vomiting Comments: Right-sided flank pain wrapping around to right groin Genitourinary Genitourinary: Denies hematuria, Denies dysuria, Denies flank pain, Denies urinary incontinence and Denies urinary urgency Musculoskeletal Musculoskeletal: Denies back pain, Denies muscle weakness, Denies neck pain, Denies numbness and Denies tingling Integumentary/Breasts Skin/Breast: Denies pruritus, Denies erythema, Denies rash and Denies wounds Neurologic Neurologic: Denies behavioral changes, Denies confusion, Denies dizziness, Denies frequent falls, Denies loss of vision, Denies numbness, Denies tingling and Denies weakness Psychiatric Psychiatric: Denies anxiety, Denies behavioral changes, Denies confusion, Denies depression, Denies homicidal ideation and Denies suicidal ideation Endocrine Endocrine: Denies fatigue, Denies flushing and Denies palpitations Hematologic/Lymphatic Hematologic/Lymphatic: Denies easy bruising Allergic/Immunologic Allergic/Immunologic: Denies urticaria, Denies throat swelling and Denies wheezing Patient History <Nabila Arreguin PA-C - Last Filed: 04/26/22 14:26> Medical History GERD (gastroesophageal reflux disease) Malignant neoplasm of colon Sleep apnea Surgical History H/O right hemicolectomy History of surgery of liver S/P cervical spinal fusion Family History Mother Hypertension Coronary artery disease Social History household members: spouse Smoking Status: Current every day smoker Smoking Status: Current every day smoker alcohol intake frequency: a few times a month Substance Use Type: does not use Exam <Nabila Arreguin PA-C - Last Filed: 04/26/22 14:26> Narrative Exam Narrative: Const General:?cooperative, healthy appearing and comfortable [facility] Head:?normal to inspection Ears:?hearing grossly normal bilaterally; tympani intact bilaterally Nose:?external nose normal Face and sinus:?normal facial exam and sinuses nontender Mouth:?oral mucosae normal Throat:?posterior oropharynx normal Eyes General:?appearance normal, both eyes and all related structures Neck Neck:?normal visual inspection and no lymphadenopathy noted Resp Effort & Inspection:?normal respiratory effort Auscultation:?clear to auscultation bilaterally Cardio Rate:?regular rate Rhythm:?regular rhythm Gastrointestinal Abdomen is soft, non distended, nontender to palpation. No CVA tenderness. Neuro General:?patient alert, patient awake and patient oriented x3 Initial Vital Signs Initial Vital Signs: Vital Signs Temperature 98 F 04/12/22 09:32 Pulse Rate 65 04/12/22 09:32 Respiratory Rate 18 04/12/22 09:32 Blood Pressure 128/76 04/12/22 09:32 Pulse Oximetry 99 04/12/22 09:32 Oxygen Delivery Method 04/12/22 09:32 <Pili Valencia DO - Last Filed: 05/17/22 13:42> Initial Vital Signs Initial Vital Signs: Vital Signs Temperature 98 F 04/12/22 09:32 Pulse Rate 65 04/12/22 09:32 Respiratory Rate 18 04/12/22 09:32 Blood Pressure 128/76 04/12/22 09:32 Pulse Oximetry 99 04/12/22 09:32 Oxygen Delivery Method 04/12/22 09:32 Course <Nabila Arreguin PA-C - Last Filed: 04/26/22 14:26> Orders Ordered: Discontinued Medications Heparin Sodium (Porcine) (Heparin 500 Unit/5 Ml Port Flush) 500 unit IV NOW ONE Stop: 04/12/22 14:17 Last Admin: 04/12/22 14:19 Dose: 500 unit Documented By: RL Sodium Chloride (Normal Saline 0.9%) 1,000 mls @ 21 mls/hr IV CONT ERIC Last Infusion: 04/12/22 13:13 Dose: 0 mls/hr Documented By: Admin: 04/12/22 12:45 Dose: 21 mls/hr Documented By: RLS <Pili Valencia DO - Last Filed: 05/17/22 13:42> Orders Ordered: Discontinued Medications Heparin Sodium (Porcine) (Heparin 500 Unit/5 Ml Port Flush) 500 unit IV NOW ONE Stop: 04/12/22 14:17 Last Admin: 04/12/22 14:19 Dose: 500 unit Documented By: RL Sodium Chloride (Normal Saline 0.9%) 1,000 mls @ 21 mls/hr IV CONT ERIC Last Infusion: 04/12/22 13:13 Dose: 0 mls/hr Documented By: Admin: 04/12/22 12:45 Dose: 21 mls/hr Documented By: AINSLEY MDM - Back Pain/Injury <Nabila Arreguin PA-C - Last Filed: 04/26/22 14:26> Lab Data Lab results narrative: Labs within normal limits. Result diagrams: 04/12/22 11:35 04/12/22 11:35 Labs: Lab Results 04/12/22 04/12/22 Range/Units 11:35 11:35 WBC 6.3 (4.5-11.0) X10^3/uL RBC 3.66 L (4.5-5.9) X10^6/uL Hgb 10.6 L (13.5-17.5) g/dL Hct 31.7 L (41-53) % MCV 86.6 (80-100) fL MCH 29.0 (26-34) PG MCHC 33.5 (30-36) % RDW 13.9 (11.6-14.8) % Plt Count 178 (150-400) X10^3/uL Neut % (Auto) 65.5 (50-75) % Lymph % (Auto) 22.1 L (25-40) % [place] % (Auto) 7.6 (3-14) % Eos % (Auto) 3.5 (2-4) % Baso % (Auto) 1.3 (0-2) % Neut # (Auto) 4200 (9905-3179) /uL Lymph # (Auto) 1400 (2140-7818) /uL [place] # (Auto) 500 (0-900) /uL Eos # (Auto) 200 (0-450) /uL Baso # (Auto) 100 (0-100) /uL Sodium 139 (137-145) mmol/L Potassium 4.4 (3.4-5.1) mmol/L Chloride 107 (98-107) mmol/L Carbon Dioxide 26 (22-32) mmol/L BUN 20 (9-20) mg/dL Creatinine 1.40 H (0.66-1.25) mg/dL Estimated GFR > 60 (>60) mL/min BUN/Creatinine Ratio 14.3 (6-22) Glucose 92 (70-100) mg/dL Calcium 8.8 (8.4-10.2) mg/dL Total Bilirubin 0.5 (0.2-1.3) mg/dL AST 21 (17-59) IU/L ALT 10 (<50) IU/L Alkaline Phosphatase 57 (38-126) U/L Total Protein 7.4 (6.3-8.2) g/dL Albumin 4.1 (3.5-5.0) g/dL Globulin 3.3 (1.7-4.1) g/dL Albumin/Globulin Ratio 1.2 (1.0-2.8) Lipase 73 (23-300) U/L Urine Dip Bedside Urine Glucose Negative Bedside Urine Bilirubin - Negative Bedside Urine Ketone - Negative Urine Specific [place] 1.010 Bedside Urine Occult Blood - Negative Bedside Urine pH 6.5 Bedside Urine Protein - Negative Bedside Urine Urobilinogen - Negative Bedside Urine Nitrite - Negative Bedside Urine Leukocytes - Negative Esterase Imaging Data CT scan - abdomen/pelvis: Radiologist's Impression: PROCEDURE:? CT ABDOMEN PELVIS W CON ? INDICATIONS:? ?changes w/ colon neoplasm; ? kidney stones ? TECHNIQUE:? After the administration of intravenous contrast, axial sections acquired from the lung bases to the pubic symphysis.? Coronal and sagittal reformats were performed.? For radiation dose reduction, the following was used:? automated exposure control, adjustment of mA and/or kV according to patient size.? ? COMPARISON:? [facility], CT, CT CHEST ABD PEL WO CON, 09/22/2021, 14:00.? [facility], CT, CT CHEST ABD PEL WO CON, 03/15/2022, 13:49. ? FINDINGS:? Image quality:? Excellent.? ? Lung bases:? Unremarkable. Heart:? No significant findings. ? ABDOMEN: Liver:? Unchanged.? Again noted are hepatic dome densities, possibly calcifications, and an inferior right hepatic lobe area of probable surgical clips and central hypodensity consistent with sequelae of treatment.? No new or increasing liver lesions are identified..? ? Gallbladder:? Unremarkable.? ? Biliary ducts:? Unremarkable.? ? Pancreas:? Unremarkable.? ? Spleen:? Unremarkable.? ? Adrenal Glands:? Unremarkable.? ? Kidneys and Ureters:? Unremarkable.? ? ? Stomach and Bowel:? Right colectomy clips.? Stomach, small bowel loops, and colon are otherwise unremarkable Peritoneum:? No abnormal intraperitoneal fluid.? No free air.? ? Ventral Wall: ? No hernias.? Abdominal Nodes:? No retroperitoneal or mesenteric adenopathy by size criteria.? Vessels:? Aorta and inferior vena cava are normal in size.? ? PELVIS: Pelvic Organs:? Unremarkable.? ? Bladder:? Unremarkable.? ? Pelvic Nodes: No enlarged lymph nodes.? Miscellaneous: No hernias are seen. ? ? ? Bones:? Unremarkable.? IMPRESSION:? ? 1. Remote partial colectomy. ? 2. Findings in the liver consistent with post treatment changes. ? 3. No evidence of disease progression in the abdomen and pelvis.? No new or increasing lesions.? ? ? Dictated by: Gabriele De La Paz M.D. on 04/12/2022 at 13:23 ? ? Approved by: Gabriele De La Paz M.D. on 04/12/2022 at 13:30 ? MDM Narrative Medical decision making narrative: 52-year-old male with past medical history malignant neoplasm of the colon presents to the ED with right-sided flank pain that wraps around to the right groin. Concern for kidney stones versus pyelonephritis versus UTI versus bowel obstruction versus complications from the colon cancer versus musculoskeletal sprain/strain versus odontogenic infection. Will obtain labs, UA, lactate, CT abdomen pelvis. Labs without acute findings, UA without UTI. No acute findings from the CT abdomen pelvis. Patient's abdominal symptoms could be due to having passed a kidney stone versus a musculoskeletal sprain/strain. Will treat the odontogenic infection clindamycin. Patient agrees to follow-up with his dentist later this week. ED precautions discussed with patient. Patient verbalizes understanding. <Pili Valencia, DO - Last Filed: 05/17/22 13:42> Lab Data Labs: Lab Results 04/12/22 04/12/22 Range/Units 11:35 11:35 WBC 6.3 (4.5-11.0) X10^3/uL RBC 3.66 L (4.5-5.9) X10^6/uL Hgb 10.6 L (13.5-17.5) g/dL Hct 31.7 L (41-53) % MCV 86.6 (80-100) fL MCH 29.0 (26-34) PG MCHC 33.5 (30-36) % RDW 13.9 (11.6-14.8) % Plt Count 178 (150-400) X10^3/uL Neut % (Auto) 65.5 (50-75) % Lymph % (Auto) 22.1 L (25-40) % [place] % (Auto) 7.6 (3-14) % Eos % (Auto) 3.5 (2-4) % Baso % (Auto) 1.3 (0-2) % Neut # (Auto) 4200 (5624-8427) /uL Lymph # (Auto) 1400 (1774-3008) /uL [place] # (Auto) 500 (0-900) /uL Eos # (Auto) 200 (0-450) /uL Baso # (Auto) 100 (0-100) /uL Sodium 139 (137-145) mmol/L Potassium 4.4 (3.4-5.1) mmol/L Chloride 107 (98-107) mmol/L Carbon Dioxide 26 (22-32) mmol/L BUN 20 (9-20) mg/dL Creatinine 1.40 H (0.66-1.25) mg/dL Estimated GFR > 60 (>60) mL/min BUN/Creatinine Ratio 14.3 (6-22) Glucose 92 (70-100) mg/dL Calcium 8.8 (8.4-10.2) mg/dL Total Bilirubin 0.5 (0.2-1.3) mg/dL AST 21 (17-59) IU/L ALT 10 (<50) IU/L Alkaline Phosphatase 57 (38-126) U/L Total Protein 7.4 (6.3-8.2) g/dL Albumin 4.1 (3.5-5.0) g/dL Globulin 3.3 (1.7-4.1) g/dL Albumin/Globulin Ratio 1.2 (1.0-2.8) Lipase 73 (23-300) U/L Urine Dip Bedside Urine Glucose Negative Bedside Urine Bilirubin - Negative Bedside Urine Ketone - Negative Urine Specific [place] 1.010 Bedside Urine Occult Blood - Negative Bedside Urine pH 6.5 Bedside Urine Protein - Negative Bedside Urine Urobilinogen - Negative Bedside Urine Nitrite - Negative Bedside Urine Leukocytes - Negative Esterase Discharge Plan Departure Patient Disposition: Home Clinical Impression: Flank pain Instructions: Acute Abdominal Pain Activity Restrictions/Additional Instructions: You were evaluated in the ED today for flank and abdominal pain, a possible dental infection. Your labs, CT of the abdomen pelvis showed no changes from your recent labs, imaging. It is possible that your flank pain and abdominal pa in might be due to possibly passing a kidney stone or a musculoskeletal sprain/strain. You are being started on clindamycin for a possible dental infection. You will need to follow up with the dentist as soon as possible for further evaluation and treatment. Return to the ED if you experience worsening flank pain, abdominal pain, nausea, vomiting, fever, chills, dental pain. Prescriptions: No Action Avastin 25 mg/mL Solution 25 mg IV Q3W lorazepam 0.5 mg tablet 0.5 mg PO BID PRN (Reason: anxiety) Qty: 20 0RF metoclopramide HCl [Reglan] 5 mg tablet 5 mg PO Q6H PRN (Reason: nausea and vomiting) Qty: 30 0RF Rx Instructions: administer 30 minutes before meals metoprolol succinate 50 mg Tablet Extended Release 24 Hr 50 mg PO DAILY Qty: 30 0RF Rx Instructions: Take one tablet by mouth daily nitroglycerin 0.6 mg Tablet, Sublingual 0.6 mg SUBLINGUAL Q5M PRN (Reason: CHEST PRESSURE / PAIN) Qty: 12 0RF Rx Instructions: do not exceed 3 doses per episode losartan 100 mg Tablet 100 mg PO DAILY amlodipine 10 mg Tablet 10 mg PO DAILY calcitriol 0.25 mcg Capsule 0.25 mcg PO DAILY magnesium 250 mg Tablet 250 mg PO DAILY Referrals: Saurabh Shah MD [Primary Care Provider] - Visit Report Forms: Patient Portal/API <Pili Valencia DO - Last Filed: 05/17/22 13:42> Cosign ED Attending Festusature Attestation: I was immediately available in the department for consultation. Documentation has been reviewed.
== END 2022-04-12 14:23 | disposition home or self-care (01) ==
PROVIDERS: Emergency Medicine; Emergency Provider Student in an Organized Health Care Education/Training Program; PCP Family Medicine
DX: R10.9 Unspecified abdominal pain (principal); K08.89 Other specified disorders of teeth and supporting structures
CPT/HCPCS: 36415; 74177; 80053; 81003; 83690; 85025; 99284; J1642; Q9967

== ENCOUNTER → 2022-09-13 13:05 | Outpatient (CLI) | payer OTHER, SELFPAY ==
[2020-11-28 04:13] VITALS: BMI 24.5
[2022-09-13 15:37] LABS: BUN Creatinine Ratio 12.6 (6-22); Blood Urea Nitrogen 18 mg/dL (9-20); Carbon Dioxide 24 mmol/L (22-32); Chloride 100 mmol/L (98-107); Estimated Glomerular Filt Rate 60 mL/min (>60); Glucose 83 mg/dL (70-100); HEMOLYSIS < 15 (0-50); Magnesium 1.9 mg/dL (1.6-2.3); Potassium 4.5 mmol/L (3.4-5.1); Sodium 138 mmol/L (137-145)
[2022-09-13 16:07] LABS: Creatinine Urine Random 42.5 mg/dL; Protein (Total) Urine Random 23 mg/dL (0-12); Protein Creatinine Ratio Urine 0.54 GRAM/24H
[2022-09-15 06:33] LABS: Parathyroid Hormone Int 30 pg/mL (15-65)
== END ==
PROVIDERS: PCP Family Medicine; Referring Provider Student in an Organized Health Care Education/Training Program; Visit Provider Student in an Organized Health Care Education/Training Program
DX: N05.9 Unspecified nephritic syndrome with unspecified morphologic changes (principal); E83.40 Disorders of magnesium metabolism, unspecified; N25.81 Secondary hyperparathyroidism of renal origin; R80.9 Proteinuria, unspecified
CPT/HCPCS: 36415; 80048; 82570; 83735; 83970; 84156

== ENCOUNTER → 2022-10-02 08:24 | Outpatient (CLI) | payer OTHER, SELFPAY ==
[2020-11-28 04:13] VITALS: BMI 24.5
--- NOTE | 2022-10-02 08:26 | DI.CT.S_ITS ---
PROCEDURE: CT CHEST ABD PEL WO CON INDICATIONS: metastatic colon cancer, now with right lower quadrant TECHNIQUE: After the administration of oral contrast, 5 mm thick sections acquired from the lung apices to the symphysis pubis. 5 mm thick coronal and sagittal reformats acquired, with additional 7 mm coronal MIP reformats through the lungs. For radiation dose reduction, the following was used: automated exposure control, adjustment of mA and/or kV according to patient size. COMPARISON: [facility], CT, CT ABDOMEN PELVIS W CON, 04/12/2022, 13:00. [facility], CT, CT CHEST ABD PEL WO CON, 09/22/2021, 14:00. [facility], CT, CT CHEST ABD PEL WO CON, 03/15/2022, 13:49. FINDINGS: Image quality: Excellent. CHEST: Lungs and pleura: No acute pulmonary opacities. No pleural effusions or pneumothorax. Central and peripheral airways are patent are normal in caliber. Mediastinum: Heart size is normal. No pericardial effusion. No mediastinal adenopathy by CT size criteria. Thoracic aorta and central pulmonary arteries are normal in size. Esophagus is normal in caliber. No hiatal hernia. Chest wall: No axillary or supraclavicular adenopathy by size criteria. A left-sided chest port is seen, with the tip within the inferior aspect of the superior vena cava. Thyroid gland demonstrates no significant noncontrast abnormality . ABDOMEN: Solid organs: Liver is normal in size. Metallic density is again seen involving the right liver dome. Gallbladder has been removed. Pancreas is normal in contours. Spleen is normal in size. No adrenal nodules. Both kidneys are normal in size, without hydronephrosis or nephrolithiasis. Water density left renal cysts are seen laterally. Along the anterior aspect of the right kidney, there is a water density 4 cm cyst. Peritoneum and bowel: Postoperative changes are seen on the right, with apparent right hemicolectomy. Anastomotic staple lines are seen. Within the proximal-most colon, there are areas of wall thickening seen, as on series 5, image 18, which is similar to the prior examination. There is asymmetric wall thickening seen involving the rectum, as demonstrated on series 5, image 40. Nodes and vessels: There is a borderline enlarged left retroperitoneal lymph node seen that measures 16 x 9 mm in greatest axial dimension. This is similar to the prior examination. Aorta and inferior vena cava are normal in size. Miscellaneous: No ventral hernias. PELVIS: Genitourinary: Bladder wall thickness is normal. Miscellaneous: No inguinal hernias or adenopathy. Bones: No suspicious bony lesions. No vertebral body compression fractures. Mild levoconvex scoliotic curvature is noted. IMPRESSION: Right hemicolectomy change, with focal wall thickening seen involving the proximal most colon. This is similar to the prior examination, however. Focal asymmetric wall thickening can be seen involving the rectum. If clinically appropriate, please consider a follow-up colonoscopy for further evaluation. Borderline enlarged left retroperitoneal lymph node seen. Additional findings: Stable left chest port Metallic density at the right liver dome, attributed to prior intervention Cholecystectomy Bilateral simple appearing renal cysts Dictated by: Teddy Gutierrez M.D. on 10/02/2022 at 9:48 Approved by: Teddy Gutierrez M.D. on 10/02/2022 at 9:56
== END ==
PROVIDERS: PCP Family Medicine; Referring Provider Internal Medicine Hematology & Oncology; Visit Provider Internal Medicine Hematology & Oncology
DX: C18.2 Malignant neoplasm of ascending colon (principal); N28.1 Cyst of kidney, acquired; Z90.49 Acquired absence of other specified parts of digestive tract; Z95.828 Presence of other vascular implants and grafts
CPT/HCPCS: 71250; 74176

== ENCOUNTER → 2022-10-04 10:06 | Outpatient (CLI) | payer OTHER, SELFPAY ==
[2020-11-28 04:13] VITALS: BMI 24.5
[2022-10-04 13:21] LABS: COVID19 -Nasal RAPID Negative (Negative)
== END ==
PROVIDERS: PCP Family Medicine; Visit Provider Surgery
DX: Z01.812 Encounter for preprocedural laboratory examination (principal); Z20.822 Contact with and (suspected) exposure to COVID-19
CPT/HCPCS: 87635; C9803

== ENCOUNTER 2022-10-05 13:48 | Day surgery (SDC) | payer OTHER, SELFPAY ==
[2020-11-28 04:13] VITALS: BMI 24.5
[2022-10-05] VITALS (7 sets, daily range): BP systolic 93–117; BP diastolic 62–79; PULSE 60–81; RESP 15–20; TEMP 36.3–36.8; O2SAT 96–99; BMI 22.8
--- NOTE | 2022-10-05 | PATH_ITS ---
[facility] Accession Number: [id number] . 01 Material submitted: . colon - DESCENDING COLON. Modifiers: descending . 01 Diagnosis: Descending Colon, Biopsy: Colonic mucosa with no diagnostic abnormality. Negative for active, chronic, and microscopic colitis. Negative for dysplasia and malignancy. . [facility] 10/07/2022 1117 Local . 01 Electronically signed: . Jnana Nelson MD, Pathologist NPI- [id number] . 01 Gross description: . DESCENDING COLON: Received in formalin is 1 fragment(s) of hayden, soft tissue measuring 0.5 x 0.2 x 0.1 cm submitted entirely in 1 cassette(s) /CPE 10/06/2022 0603 Local . 01 Pathologist provided ICD-10: Z12.11 . 01 CPT . 065382 Specimen Comment: A courtesy copy of this report has been sent to [phone] Performed at: 01 [facility] [address] [place] [address], [place], [place] [id number] MD Noam Silva MD Phone: [phone]
--- NOTE | 2022-10-05 14:03 | P.HP_ITS ---
History of Present Illness History of Present Illness Date Patient Seen: 10/05/22 Chief complaint: DX COLONOSCOPY Narrative: 52-year-old man history of metastatic colon cancer status post right hemicolectomy several years ago. He is here today for routine screening colonoscopy. Last colonoscopy 1 year ago was normal. He was having some right- sided abdominal pain recently none today. No unintentional weight loss nausea vomiting blood per rectum. He is currently on adjuvant chemotherapy. Patient History Medical History GERD (gastroesophageal reflux disease) Malignant neoplasm of colon Sleep apnea Surgical History H/O right hemicolectomy History of surgery of liver S/P cervical spinal fusion Family & Social History Family History Mother Hypertension Coronary artery disease Social History: household members spouse Tobacco & Substance use: Tobacco type cigarettes Smoking Status Current every day smoker alcohol intake frequency a few times a month Substance Use Type does not use Meds Home Medications and Allergies Home Medications Medication Instructions Recorded Confirmed Type bevacizumab 25 mg/mL intravenous 25 mg IV Q3W 08/04/20 09/23/22 History solution (Avastin) lorazepam 0.5 mg tablet 0.5 mg PO BID PRN anxiety #20 tabs 11/29/20 09/23/22 Rx metoclopramide HCl 5 mg tablet 5 mg PO Q6H PRN nausea and 11/29/20 09/23/22 Rx (Reglan) vomiting #30 tabs metoprolol succinate 50 mg 50 mg PO DAILY #30 tabs 12/25/20 09/23/22 Rx tablet,extended release 24 hr losartan 100 mg tablet 100 mg PO DAILY 02/19/21 09/23/22 History nitroglycerin 0.6 mg sublingual 0.6 mg sublingual Q5M PRN CHEST 02/19/21 09/23/22 Rx tablet PRESSURE / PAIN #12 tabs amlodipine 10 mg tablet 10 mg PO DAILY 03/12/21 09/23/22 History calcitriol 0.25 mcg capsule 0.25 mcg PO DAILY 03/12/21 09/23/22 History magnesium 250 mg tablet 250 mg PO DAILY 04/30/21 09/23/22 History Allergies Allergy/AdvReac Type Severity Reaction Status Date / Time No Known Drug Allergies Allergy Verified 10/05/22 14:07 Exam Narrative Exam Narrative: General adult male alert oriented no acute distress Assessment & Plan Assessment and plan (1) Malignant neoplasm of colon: Problem details: 49year-old man with metastatic colon cancer. Status: Chronic Assessment & Plan narrative: 52-year-old male with a history of metastatic colon cancer status post right hemicolectomy here for screening colonoscopy. Technical details were discussed. Risks, benefits, alternatives explained. Risks including but not limited to myocardial infarction, aspiration, bleeding, pain, missed lesion, incomplete examination, need for further radiographic studies, colonic perforation, and need for major abdominal surgery were discussed. All questions were answered to their satisfaction, and they are in agreement with this plan. Time Spent With Patient Critical Care time: I spent a total of [] minutes of critical care time on this patient's care today; this time is exclusive of procedural time.
[2022-10-05] MEDS: LACTATED RINGERS 1,000 ML 200 ML IV (14:22)
--- NOTE | 2022-10-05 15:26 | P.OP.COLON_ITS ---
Operative Date/Time/Diagnoses Date of procedure: 10/05/22 Time of procedure: 15:26 Pre-op diagnosis: History of metastatic colon cancer Post-op diagnosis: same Procedure & Clinicians Study performed: Colonoscopy and polypectomy Same procedure as scheduled: Yes Indications: History of metastatic colon cancer status post right hemicolectomy on adjuvant therapy Surgeon: Neri Bird Procedure Notes Procedure in detail: The history and physical was performed/updated and the patient is ASA class is 2. The procedure was discussed in detail with the patient. Potential risks complications including infection, bleeding, missed diagnosis, perforation, need for surgery, and were explained. Their questions were answered and informed consent was obtained. Patient was brought to the procedure room and placed standard monitoring equip ment. The patient's vital signs were monitored continuously throughout the entire procedure. Prior to starting time-out was performed. The patient was placed in the left lateral recumbent position. Procedural sedation was administered by anesthesia. Examination began with a thorough inspection of the perianal area there was no evidence of fissures, fistulae, external hemorrhoids or cutaneous malignancy. The colonoscopy scope was then placed into the anal canal and was advanced forward to the ileocolonic anastomosis. The anastomosis was transverse in the small bowel was normal in its appearance. The anastomosis was widely patent and there was no evidence of recurrent carcinoma. The scope was then slowly withdrawn inspecting the folds. Within the descending colon at 50 cm from the anal verge there was a 3 mm flat polyp which was biopsied with forceps. The remainder of the exam was normal. The patient tolerated the procedure well. They will be discharged once criteria are met. The prep was of good/excellent quality. The withdrawl time was 7 minutes. Specimen(s): other (Descending colonic polyp) Complications: none Impression: Colonic polyp Post-procedure Plan for aftercare: Follow-up dependent on pathology findings Disposition: same day surgery
== END 2022-10-05 16:15 | disposition home or self-care (01) ==
PROVIDERS: PCP Family Medicine; Referring Provider Surgery; Visit Provider Surgery
PROC: 0DJD8ZZ Inspection of Lower Intestinal Tract, Via Natural or Artificial Opening Endoscopic (ICD-10-PCS; CPT 45378; principal; 2022-10-05 14:30)
DX: Z12.11 Encounter for screening for malignant neoplasm of colon (principal); Z85.038 Personal history of other malignant neoplasm of large intestine; Z90.49 Acquired absence of other specified parts of digestive tract; F17.210 Nicotine dependence, cigarettes, uncomplicated
CPT/HCPCS: 45380; J2704

== ENCOUNTER → 2023-03-10 12:27 | Outpatient (CLI) | payer OTHER, SELFPAY ==
[2020-11-28 04:13] VITALS: BMI 24.5
--- NOTE | 2023-03-10 12:34 | DI.RAD.S_ITS ---
PROCEDURE: XR CERVICAL SPINE 4V OR 5V INDICATIONS: NECK PAIN TECHNIQUE: 5 views of the cervical spine acquired. COMPARISON: None. FINDINGS: Bones: No fractures or dislocations to the C7 level. Oblique images demonstrate no bony foraminal stenoses. ACDF C5 through C7. Mild disc height loss at C3-4, C4-5. Moderate neural foraminal narrowing of the right C5-6 and C7 neural foramen and mild narrowing of the left C5-6 neural foramen. Soft tissues: No prevertebral soft tissue swelling. IMPRESSION: No acute, displaced fracture or traumatic subluxation. ACDF of C5 through C7, without complication. Degenerative changes, as above. Dictated by: Jn Nicolas M.D. on 03/10/2023 at 13:37 Approved by: Jn Nicolas M.D. on 03/10/2023 at 13:39
== END ==
PROVIDERS: PCP Physician Assistant; Referring Provider Physical Medicine & Rehabilitation; Visit Provider Physical Medicine & Rehabilitation
DX: M48.02 Spinal stenosis, cervical region (principal); Z98.890 Other specified postprocedural states; Z98.1 Arthrodesis status
CPT/HCPCS: 72050

== ENCOUNTER → 2023-03-25 10:56 | Outpatient (CLI) | payer OTHER, SELFPAY ==
[2020-11-28 04:13] VITALS: BMI 24.5
--- NOTE | 2023-03-25 10:58 | DI.MRI.S_ITS ---
PROCEDURE: MR CERVICAL SPINE WO CON INDICATIONS: Cervical radiculopathy status post C5 through 7 fusion TECHNIQUE: Noncontrast sagittal T1 spin echo and T2 fast spin echo, sagittal STIR, foraminal oblique sagittal T2 fast spin echo, and axial gradient echo or T2 fast spin echo through the cervical spine. COMPARISON: [facility], MR, CERVICAL SPINE W/O CONTRAST, 03/17/2015, 15:36. [facility], CR, XR CERVICAL SPINE 4V OR 5V, 03/10/2023, 12:40. FINDINGS: Image quality: Excellent. Alignment and Curvature: There is normal bony alignment. Remote ACDF at C5 through C7. Bone Marrow: Marrow demonstrates normal overall signal. Spinal Cord: Visualized spinal cord has normal size and signal. No cerebellar tonsillar herniation. Paraspinous Soft Tissues: No paravertebral masses. Prevertebral soft tissues are normal in thickness. C2-C3: Right facet hypertrophy. No canal stenosis. Moderate left foraminal stenosis. C3-C4: Disc bulge. AP diameter of the canal is 9.9 mm. Bilateral uncovertebral joint hypertrophy. Moderate right foraminal narrowing. Moderate to severe left foraminal narrowing. There is a degree of left foraminal C4 nerve root impingement. Foraminal narrowing is progressed bilaterally. C4-C5: Disc bulge. AP diameter of the central canal is 9.9 mm. Mild left foraminal narrowing. C5-C6: Fused. No canal stenosis. Bilateral uncovertebral joint hypertrophy. Moderate to severe right foraminal narrowing and severe left foraminal narrowing with bilateral foraminal C6 nerve root impingement. C6-C7: Fused. AP diameter of the canal is 9.2 mm. Left uncovertebral joint hypertrophy. Right foramen is patent. Moderate to severe left foraminal narrowing with a degree of left foraminal C7 nerve root impingement. C7-T1: No central canal stenosis. Prominent left facet hypertrophy. Moderate left foraminal narrowing with flattening deformity on the exiting left C8 nerve root. IMPRESSION: 1. Remote C5 through C7 fusion. 2. Borderline canal stenosis at C3-C4 and C4-C5. Mild canal stenosis at C6-C7. 3. Multilevel foraminal narrowing as described above. Findings include moderate to severe left foraminal narrowing at C3-C4, moderate to severe right foraminal narrowing and severe left foraminal narrowing at C5-C6, and moderate to severe left foraminal narrowing at C6-C7. Dictated by: Gabriele De La Paz M.D. on 03/25/2023 at 12:46 Approved by: Gabriele De La Paz M.D. on 03/25/2023 at 13:25
== END ==
PROVIDERS: PCP Physician Assistant; Referring Provider Physical Medicine & Rehabilitation; Visit Provider Physical Medicine & Rehabilitation
DX: M54.12 Radiculopathy, cervical region (principal); Z98.1 Arthrodesis status; M48.02 Spinal stenosis, cervical region
CPT/HCPCS: 72141

== ENCOUNTER 2023-04-19 09:11 | Outpatient (CLI) | payer OTHER, SELFPAY ==
[2020-11-28 04:13] VITALS: BMI 24.5
[2023-04-19] VITALS (9 sets, daily range): BP systolic 119–139; BP diastolic 81–104; PULSE 49–61; RESP 13–18; TEMP 36.6; O2SAT 99–100
--- NOTE | 2023-04-19 09:12 | DI.RAD.S_ITS ---
PROCEDURE: PAIN C/T INTERLAMINAR INJECT INDICATIONS: SPINAL STENOSIS COMPARISON: [facility], MR, MR CERVICAL SPINE WO CON, 03/25/2023, 11:06. [facility], CR, XR CERVICAL SPINE 4V OR 5V, 03/10/2023, 12:40. FINDINGS: Fluoroscopic spot filming was performed to verify placement of a spinal needle at the C7-T1 level, as labeled on the films. Appropriate location of the needle tip was confirmed by injection of iodinated contrast. IMPRESSION: Intraprocedural examination within normal limits. Dictated by: Teddy Gutierrez M.D. on 04/19/2023 at 16:35 Approved by: Teddy Gutierrez M.D. on 04/19/2023 at 16:36
[2023-04-19] MEDS: MIDAZOLAM 2 MG/2 ML VIAL IV (10:21)
[2023-04-19] MEDS: DEXAMETHASONE 10 MG/ML VIAL 30 MG INJ (10:27)
[2023-04-19] MEDS: BUPIVACAINE 0.25% (PF) VIAL 2 ML INJ (10:27)
[2023-04-19] MEDS: IOPAMIDOL 15 ML VIAL 3 ML INJ (10:27)
--- NOTE | 2023-04-19 10:37 | P.PCN_ITS ---
Date/Time/Diagnoses Date of procedure: 04/19/23 Time of procedure: 10:37 Pre-procedure diagnosis: 1. CERVICAL STENOSIS, 2. CERVICAL HNP WITH UPPER EXTREMITY RADICULAR FEATURES Procedure Notes Procedure: FLUORSCOPICALLY GUIDED CONTRAST CONTROLLED INTERLAMINAR EPIDURAL STEROID INJECTION - C7/T1 TL BALJIT Indications: Naeem is referred by ERAN Felder for treatment of Cervical Stenosis. Physician: Regino Stroud Total Fluoroscopy time (seconds): 28 Total sedation minutes: 12 Complications: none Procedure in detail & Post-procedure care: DESCRIPTION OF PROCEDURE Following review of allergy and review of potential side effects and c omplications, including, but not necessarily limited to, infection, allergic reaction, local tissue breakdown, temporary as well as permanent nerve injury, stroke, paralysis, and possible , the patient indicated that patient understood and agreed to proceed. An informed consent document was signed by the patient, witnessed by a nurse, and placed in the patient's chart. Additionally, other treatment options including modalities, medications, and physical therapy were reviewed with the patient. After review of previous anaesthesic history and IV conscious sedation the patient was deemed safe to proceed with todays procedure with IV conscious sedation as ASA class II designation. Safety time-out was performed to confirm patient ID, procedure to be performed and site of procedure. IV sedation was accomplished with a combination of 2mg of Versed administered by the RN after DO order, titrated to patient comfort during the course of the procedure while the patient remained responsive to all verbal commands. In the prone position, following sterile prep and drape of the cervical region, the C7/T1 translaminar space was identified fluoroscopically. The skin was anesthetized via a 25-gauge 1.5-inch needle with 1% lidocaine solution. At this point, a 25-gauge, 2.5-inch short bevel spinal needle was atraumatically introduced and advanced under fluoroscopic guidance into epidural space at the C7/T1 translaminar space. Depth was confirmed on lateral view. Radiological data, including multiple fluoroscopic views of the cervical spine, reveal a spinal needle at the C7/T1 translaminar space. Lateral views then show placement of the needle in the epidural space. Subsequent views show contrast material flowing superiorly and inferiorly in the epidural space. DSA fluorosc opy with live contrast injection, once again, confirmed no vascular or intrathecal uptake. At this point, using loss of resistance technique with saline and air, the epidural space was entered. Following negative aspiration, injection of approximately 1.5 cc of Isovue-200 with live fluoroscopy in the AP view confirmed epidural flow in the epidural space without vascular or intrathecal uptake observed. Subsequently, a test dose of 1 cc of 1% lidocaine solution was injected and patient was observed for two minutes without signs or symptoms of complications, including abdominal pain, shortness of breath, bilateral upper or lower extremity weakness, nausea and vomiting, prior to steroid injection. At this point, 3cc or 30mg of dexamethasone was then injected without incident. The patient tolerated the procedure well without signs or symptoms of complications prior to transfer to the recovery area for further monitoring The patient was then transferred to the recovery area where they were observed for an appropriate period of time after the injection. The patient reported a VAS score of 6 prior to the procedure and a post-procedure VAS of 0 POST OP INSTRUCTIONS The patient was provided a Pain Log to continue to record the patient's response to the target-specific procedure prior to the patient's follow-up visit with the referring physician. Additionally, specific post-injection care instructions and a contact number to our office were provided if concerns arise regarding possible complications associated with the procedure are suspected.
== END 2023-04-19 10:57 | disposition home or self-care (01) ==
LOC: RAD 09:12
PROVIDERS: PCP Physician Assistant; Referring Provider Physical Medicine & Rehabilitation; Visit Provider Physical Medicine & Rehabilitation
DX: M48.02 Spinal stenosis, cervical region (principal); M50.13 Cervical disc disorder with radiculopathy, cervicothoracic region
CPT/HCPCS: 62321; 99152; J1100; J2250; J3490

== ENCOUNTER 2023-06-13 10:39 | Emergency (ER) | payer OTHER, SELFPAY ==
[2020-11-28 04:13] VITALS: BMI 24.5
[2023-06-13 11:07] VITALS: BP 140/95; PULSE 56; RESP 16; TEMP 36.7; O2SAT 98; BMI 23.7
[2023-06-13 11:36] LABS: Add Manual Diff / Slide Review NO; Basophils Absolute Auto 0 /uL (0-100); Basophils Percent Auto 0.2 % (0-2); Eosinophils Absolute Auto 300 /uL (0-450); Eosinophils Percent Auto 6.1 % (2-4); Hematocrit 40.5 % (41-53); Hemoglobin 13.5 g/dL (13.5-17.5); Lymphocytes Absolute Auto 1900 /uL (1100-4500); Lymphocytes Percent Auto 35.4 % (25-40); Mean Corpuscular HGB Conc 33.4 % (30-36); Mean Corpuscular Hemoglobin 29.7 PG (26-34); Mean Corpuscular Volume 88.9 fL (80-100); Monocytes Absolute Auto 400 /uL (0-900); Monocytes Percent Auto 6.9 % (3-14); Neutrophils Absolute Auto 2700 /uL (1500-7000); Neutrophils Percent Auto 51.4 % (50-75); Platelet Count 146 X10^3/uL (150-400); Red Blood Cell Count 4.56 X10^6/uL (4.5-5.9); Red Cell Distribution Width 13.9 % (11.6-14.8); White Blood Cell Count 5.3 X10^3/uL (4.5-11.0)
[2023-06-13 11:44] LABS: Alanine Aminotransferase 16 IU/L (<50); Albumin Globulin Ratio 1.3 (1.0-2.8); Alkaline Phosphatase 43 U/L (38-126); Aspartate Aminotransferase 26 IU/L (17-59); BUN Creatinine Ratio 12.3 (6-22); Bilirubin Total 0.5 mg/dL (0.2-1.3); Blood Urea Nitrogen 14 mg/dL (9-20); Calcium 8.6 mg/dL (8.4-10.2); Carbon Dioxide 24 mmol/L (22-32); Chloride 107 mmol/L (98-107); Estimated Glomerular Filt Rate > 60 mL/min (>60); Globulin 3.1 g/dL (1.7-4.1); Glucose 95 mg/dL (70-100); HEMOLYSIS < 15 (0-50); Lipase 57 U/L (23-300); Sodium 136 mmol/L (137-145); Total Protein 7.1 g/dL (6.3-8.2)
== END 2023-06-13 15:00 | disposition left against medical advice (07) ==
PROVIDERS: Emergency Provider Emergency Medicine; PCP Physician Assistant
DX: R10.31 Right lower quadrant pain (principal)
CPT/HCPCS: 36415; 80053; 83690; 85025; 99283

== ENCOUNTER → 2023-09-21 12:49 | Outpatient (CLI) | payer OTHER, SELFPAY ==
[2020-11-28 04:13] VITALS: BMI 24.5
--- NOTE | 2023-09-21 12:50 | DI.CT.S_ITS ---
PROCEDURE: CT CHEST ABD PEL W CON INDICATIONS: Malignant neoplasm of ascending colon TECHNIQUE: After the administration of oral and intravenous contrast, axial sections acquired from the supraclavicular neck to the pubic symphysis. Coronal and sagittal reformats were performed. For radiation dose reduction, the following was used: automated exposure control, adjustment of mA and/or kV according to patient size. COMPARISON: Merged With [facility], CT, CT CHEST ABD PEL WO CON, 10/02/2022, 10:04. Merged With [facility], CT, CT ABDOMEN PELVIS W CON, 04/12/2022, 13:00. Merged With [facility], CT, CT CHEST ABD PEL WO CON, 03/15/2022, 13:49. Merged With [facility], CT, CT CHEST ABD PEL W CON, 05/16/2020, 9:06. FINDINGS: Image quality: Excellent. CHEST: Lower Neck: No enlarged lymph nodes. Thyroid: Within normal limits. Axillae: No enlarged lymph nodes. Chest Wall: A left-sided chest port is seen, with the tip within the inferior aspect of the superior vena cava. Lungs and Airways: No consolidation or suspicious nodules. Pleura: No pneumothorax or pleural effusions. Heart: Heart size is normal. No pericardial effusion. Thoracic Vessels: The aorta and pulmonary arteries demonstrate normal size. Mediastinum and Michelle: No enlarged lymph nodes. Esophagus: No wall thickening. No hiatal hernia. ABDOMEN: Liver: Hyperdense lesions can be seen involving the right liver dome as well as the central inferior right liver, which are stable over time and are attributed to treated metastatic disease. The liver is normal in size and demonstrates no suspicious lesions. Gallbladder: Unremarkable. Biliary ducts: Unremarkable. Pancreas: Unremarkable. Spleen: Unremarkable. Adrenal Glands: Unremarkable. Kidneys and Ureters: Simple appearing water density renal cysts are seen. The kidneys demonstrate normal size and enhance symmetrically. There is no hydronephrosis. Stomach and Bowel: Prior right hemicolectomy change can be seen. No sophia findings of local recurrence can be seen. Within the rectum, circumferential thickening is seen. No dilated loops of small bowel are seen. The stomach demonstrates no significant abnormality. Peritoneum: No abnormal intraperitoneal fluid. No free air. Ventral Wall: No hernia. Abdominal Nodes: No retroperitoneal or mesenteric adenopathy by size criteria. The previously described borderline enlarged left retroperitoneal lymph node may be artifactual and related to a vein. Vessels: Aorta and inferior vena cava are normal in size. PELVIS: Pelvic Organs: Unremarkable. Bladder: Unremarkable. Pelvic Nodes: No enlarged lymph nodes. Miscellaneous: No inguinal hernias are seen. Bones: Mild levoconvex scoliotic curvature is noted. Age-appropriate bony degenerative changes are seen. IMPRESSION: Prior right hemicolectomy change. Circumferential thickening can be seen involving the rectum, which is felt most likely be artifactual. If clinically appropriate, please consider lower endoscopy for further evaluation. No sophia findings of active metastatic disease can be seen. No definitely enlarged lymph nodes are seen. Additional findings: Left-sided chest port Apparent prior treated metastatic disease within the liver. Simple appearing bilateral renal cysts Levoconvex scoliotic curvature Dictated by: Teddy Gutierrez M.D. on 09/21/2023 at 17:06 Approved by: Teddy Gutierrez M.D. on 09/21/2023 at 17:14
== END ==
PROVIDERS: PCP Physician Assistant; Referring Provider Nurse Practitioner Gerontology; Visit Provider Nurse Practitioner Gerontology
DX: C18.2 Malignant neoplasm of ascending colon (principal); C78.7 Secondary malignant neoplasm of liver and intrahepatic bile duct; N28.1 Cyst of kidney, acquired; M41.9 Scoliosis, unspecified; Z90.49 Acquired absence of other specified parts of digestive tract; Z95.828 Presence of other vascular implants and grafts
CPT/HCPCS: 71260; 74177; Q9967

== ENCOUNTER 2023-11-22 06:57 | Day surgery (SDC) | payer OTHER, SELFPAY ==
[2020-11-28 04:13] VITALS: BMI 24.5
--- OUTSIDE RECORDS SUMMARY | 2023-10-06 08:58 | XMS_ITS | Referral Summary ---
Author Name Unknown Organization [facility] Address [address] [place] [address] Care Team Providers Care Gasateria Attendant Name Role Phone Noman Yadav MD Primary Care Provider [phone] Reason for Referral * Consultation (Urgent) - Authorized Specialty Diagnoses / Procedures Referred By Jarrod duque Referred To Contact Diagnoses Malignant neoplasm of ascending colon (CMS-HCC) Josefina Murillo ARNP [address] [place] [id number] [address] Referral ID Status Reason Start Date Expiration Date Visits Requested Visits Authorized [id number] Authorized Specialty Services Required 09/09/2023 09/03/2024 6 6 Scheduling Instructions Pt wants colonoscopy done at [facility] Encounter Details Date Type Department Care Team Description 09/09/2023 Orders Only [facility] Oncology [address] [phone] Arlene Lloyd Malignant neoplasm of ascending colon (CMS-HCC) (Primary Dx) Allergies No known active allergiesdocumented as of this encounter (statuses as of 09/15/2023) Medications Medication Sig Dispensed Refills Start Date End Date Status gabapentin (NEURONTIN) 300 mg capsule Take 300 mg by mouth daily as needed 0 Active MELATONIN ORAL Take 1 tablet by mouth as needed. 0 Active metoprolol succinate XL (TOPROL-XL) 50 mg 24 hr tablet Take 50 mg by mouth daily 0 Active nitroglycerin (NITROSTAT) 0.[address] 1 tablet (0.6 mg total) under the tongue as needed 0 02/20/2021 Active sodium chloride 0.9 % parenteral solution 100 mL with bevacizumab 25 mg/mL solution Infuse 10 mg into a venous catheter every 21 days 0 Active hydrALAZINE (APRESOLINE) 25 mg tablet Take 25 mg by mouth daily 0 Active metoclopramide (REGLAN) 5 mg tablet Take 5 mg by mouth as needed 0 Active LORazepam (ATIVAN) 0.5 mg tablet Take 0.5 mg by mouth as needed 0 Active calcitrioL (ROCALTROL) 0.25 mcg capsule Take 0.25 mcg by mouth daily 0 05/29/2021 Active amLODIPine (NORVASC) 10 mg tablet Take 1 tablet (10 mg total) by mouth daily 90 tablet 3 07/29/2021 Active Additional Information Patient not taking.Reported on 07/21/2023 pregabalin (LYRICA) 75 mg capsule Take 1 capsule (75 mg total) by mouth 2 (two) times a day 0 Active losartan (COZAAR) 25 mg tablet Take 1 tablet (25 mg total) by mouth 0 09/16/2022 09/16/2023 Active documented as of this encounter (statuses as of 09/15/2023) Active Problems Problem Noted Date Diagnosed Date CKD (chronic kidney disease) 02/23/2021 Essential hypertension 02/23/2021 Colon cancer 05/04/2018 Cancer Staging:Clinical stage from 05/04/2018:Stage MALATHI(cM1a) - Unsigned documented as of this encounter (statuses as of 09/15/2023) Social History Tobacco Use Types Packs/Day Years Used Date Smoking Tobacco: Every Day Cigarettes 35 Smokeless Tobacco: Never Alcohol Use Standard Drinks/Week Comments No 0 (1 standard drink = 0.6 oz pur e alcohol) Sex and Gender Information Value Date Recorded Sex Assigned at Not on file Gender Identity Not on file Sexual Orientation Not on file Job Start Date Occupation Industry Not on file Not on file Not on file documented as of this encounter Plan of Treatment Upcoming Encounters Date Type Department Care Team Description 09/21/2023 7:30 AM PST Office Visit [facility] Nose [facility] Throat [address] [phone] Pérez Brown MD [address] [place] [phone] 09/23/2023 1:30 PM PST Infusion [facility] Oncology Infusion [address], [address] [place] [address] Shirley Pineda MD [address] [place] [phone] 10/14/2023 12:30 PM PST Infusion [facility] Infusion [address], [address] [address] 10/14/2023 1:00 PM PST Office Visit [facility] Oncology [address], [address] [phone] Shirley Pineda MD [address] [place] [phone] 10/14/2023 1:30 PM PST Infusion [facility] On[facility] Infusion [address], [address] [address] Shirley Pineda MD [address] [place] [phone] Scheduled Referrals Name Type Priority Associated Diagnoses Order Schedule *MV Screening Colonoscopy Only - Surgery (Referral) Outpatient Referral Routine Malignant neoplasm of ascending colon (CMS-HCC) Ordered: 09/09/2023 documented as of this encounter Visit Diagnoses Diagnosis Malignant neoplasm of ascending colon (CMS-HCC)- Primary Malignant neoplasm of ascending colon documented in this encounter Insurance Payer Benefit Plan / Group Subscriber ID Effective Dates Phone Address Type [place] [id number] 2015-Present [address] [place] [address] documented as of this encounter Care Teams Gasateria Attendant Relationship Specialty Start Date End Date Noman Yadav MD PCP - General Oncology 04/26/18 documented as of this encounter
--- OUTSIDE RECORDS SUMMARY | 2023-10-06 09:02 | XMS_ITS | Referral Summary ---
Author Name Unknown Organization [employer] [facility] Address [address] [place] [address] Care Team Providers Care Stonecutter Hand Name Role Phone Noman Yadav MD Primary Care Provider [phone] Reason for Referral * Consultation (Routine) - Authorized Specialty Diagnoses / Procedures Referred By Jarrod duque Referred To Contact Gastroenterology Diagnoses Malignant neoplasm of ascending colon (CMS-HCC) Josefina Murillo ARNP [address] [place] [address] [phone] Referral ID Status Reason Start Date Expiration Date Visits Requested Visits Authorized Authorized Specialty Services Required 3 08/27/2024 6 6 * MRI/CAT/PET Scan (Routine) - Pending Review Specialty Diagnoses / Procedures Referred By Jarrod duque Referred To Contact Radiology Diagnoses Malignant neoplasm of ascending colon (CMS-HCC) Procedures CT CHEST ABDOMEN PELVIS WITH CONTRAST Josefina Murillo ARNP [address] [address] Referral ID Status Reason Start Date Expiration Date Visits Requested Visits Authorized Pending Review Specialty Services Required 3 08/27/2024 1 1 Reason for Visit * Reason Comments Follow-up Malignant neoplasm o f ascending colon * Evaluate and Treat (Routine) - Authorized Specialty Diagnoses / Procedures Referred By Contac t Referred To Contact Oncology Diagnoses Malignant neoplasm of ascending colon (CMS-HCC) lab, Visit, 2hr tx([place] [facility]) Procedures [facility] APPOINTMENT REQUEST NEW PATIENT Shirley Pineda MD [address] [place] [address] Shirley Pineda MD [address] [place] [phone] Referral ID Status Reason Start Date Expiration Date V isits Requested Visits Authorized [id number] Authorized 07/21/2023 06/28/2024 7 7 Encounter Details Date Type Department Care Team Description 09/02/2023 9:00 AM PDT Office Visit [facility] Oncology [address], [address] [address] Shirley Pineda MD [address] [place] [address] [address] [place] [address] Josefina Murillo ARNP [address] [place] [id number] Malignant neoplasm of ascending colon (CMS-HCC) Allergies No known active allergiesdocumented as of this encounter (statuses as of 09/05/2023) Medications Medication Sig Dispensed Refills Start Date [...] as of this encounter (statuses as of 09/05/2023) Active Problems Problem Noted Date Diagnosed Date CKD (chronic kidney disease) 02/23/2021 Essential hypertension 02/23/2021 Colon cancer 05/04/2018 Cancer Staging:Clinical stage from 05/04/2018:Stage MALATHI(cM1a) - Unsigned documented as of this encounter (statuses as of 09/05/2023) Social History Tobacco Use Types Packs/Day Years [...] on file documented as of this encounter Last Filed Vital Signs Vital Sign Reading Time Taken Comments Blood Pressure 125/84 09/02/2023 7:58 AM PDT Pulse 57 09/02/2023 7:58 AM PDT Temperature 36.7 ??C (98.1 ??F) 09/02/2023 7:58 AM PD T Respiratory Rate 16 09/02/2023 7:58 AM PDT Oxygen Saturation 99% 09/02/2023 7:58 AM PDT Inhaled Oxygen Concentration - - Weight 71.4 kg (157 lb 6.4 oz) 09/02/2023 7:58 A M PDT Height 172.7 cm (5' 7.99) 09/02/2023 7:58 AM PD T Body Mass Index 23.94 09/02/2023 7:58 AM PDT documented in this encounter Progress Notes * DESTINEE Nice - 09/02/2023 9:00 AM PDT [facility] Oncology Nurse Practitioner Clinic Note Patient Name: Naeem Parnell Date of : 1970 Date of visit: 09/02/2023 Subjective History of Present Illness Naeem is a 53 y.o. male who presents today for follow up of metastatic colon cancer for which he is scheduled to receive ongoing maintenance therapy with every 21-day bevacizumab. He is a recent transfer of care from [facility], first established with attending medical oncologist Dr Pineda 07/25/2019 Interim Events 09/02/2023 Terry continues on maintenance bevacizumab. Abdominal pain has improved, He reports mostly normalbowel movements. Endorses ongoing chronic fatigue and weakness states it seems to be getting worse with ongoing treatment. Occasional shortness of breath with activity. Denies chest pain. Denies cough, fever, chills. Intermittent nausea. As noted above bowel movements are much improved. No new pain, no new lumps or bumps. Available labs are reviewed: CEA /urine protein creatinine ratio pending. CBC unremarkable. CMP demonstrates creatinine 1.34 otherwise normal. Oncology History Colon cancer ([facility]) 05/04/2018 Initial Diagnosis Colon cancer ([facility]) 06/30/2023 - Chemotherapy Bevacizumab, 21 Day Cycles, Colon Cancfer Plan Provider: Shirley Pineda MD Treatment goal: Maintenance Line of treatment: First Line Past Surgical History: Procedure Laterality Date CERVICAL FUSION No Known Allergies Social History Patient reports that he has been smoking cigarettes. He has never used smokeless tobacco. He reports that he does not drink alcohol and does not use drugs. Current Medication List Sig amLODIPine (NORVASC) 10 mg tablet Take 1 tablet (10 mg total) by mouth daily calcitrioL (ROCALTROL) 0.25 mcg capsule Take 0.25 mcg by mouth daily gabapentin (NEURONTIN) 300 mg capsule Take 300 mg by mouth daily as needed hydrALAZINE (APRESOLINE) 25 mg tablet Take 25 mg by mouth daily LORazepam (ATIVAN) 0.5 mg tablet Take 0.5 mg by mouth as needed losartan (COZAAR) 25 mg tablet Take 1 tablet (25 mg total) by mouth MELATONIN ORAL Take 1 tablet by mouth as needed. metoclopramide (REGLAN) 5 mg tablet Take 5 mg by mouth as needed metoprolol succinate XL (TOPROL-XL) 50 mg 24 hr tablet Take 50 mg by mouth daily nitroglycerin (NITROSTAT) 0.[address] 0.6 mg under the tongue as needed pregabalin (LYRICA) 75 mg capsule Take 1 capsule (75 mg total) by mouth 2 (two) times a day sodium chloride 0.9 % parenteral solution 100 mL with bevacizumab 25 mg/mL solution Infuse 10 mg into a venous catheter every 21 days There is no immunization history on file for this patient. Objective Vital Signs There were no vitals taken for this visit. Wt Readings from Last 8 Encounters: 08/12/23 72.6 kg 07/21/23 70.3 kg 06/30/23 71.4 kg 07/29/21 68.5 kg 02/23/21 71.4 kg 06/29/18 73.3 kg 06/02/18 73.3 kg 05/19/18 74.6 kg ECOG Performance Status: Fully active, able to carry on all pre-disease performance without restriction. (Grade 0) There were no vitals filed for this visit. Physical Exam Physical Exam Alert and well-appearing, respirations even and unlabored. Skin warm and dry no visible rash, lesion, petechiae. Extremities are without edema. Responds appropriately to commands and questions, notedto ambulate with steady gait. Labs: I have reviewed the recent laboratory data as follows: No visits with results within 1 Week(s) from this visit. Latest known visit with results is: Infusion on 08/12/2023 Component Date Value CEA 08/12/2023 3.8 Sodium, Serum/Plasma 08/12/2023 140 Potassium, Serum/Plasma 08/12/2023 3.8 Chloride, Serum/Plasma 08/12/2023 110 (H) CO2, Serum/Plasma 08/12/2023 24 Anion Gap, Serum/Plasma 08/12/2023 6 Urea Nitrogen, Serum/Guevara* 08/12/2023 18.6 Creatinine, Serum/Plasma 08/12/2023 1.13 Glucose, Serum/Plasma 08/12/2023 129 (H) Calcium, Serum/Plasma 08/12/2023 8.2 (L) AST, Serum/Plasma 08/12/2023 30 ALT, Serum/Plasma 08/12/2023 19 Alkaline Phosphatase, Se* 08/12/2023 38 Total Protein, Serum/Guevara* 08/12/2023 6.8 eGFR, Serum/Plasma (CKD-* 08/12/2023 79 Albumin, Serum/Plasma 08/12/2023 3.8 Bilirubin, Total, Serum/* 08/12/2023 0.6 BUN/Creatinine Ratio, Se* 08/12/2023 16.5 Protein, Urine (mg/dL) 08/12/2023 19.00 (H) Creatinine, Urine (mg/dL) 08/12/2023 106.8 Protein/Creatinine, Urin* 08/12/2023 177.90 WBC Auto 08/12/2023 5.9 RBC 08/12/2023 4.36 (L) Hemoglobin 08/12/2023 12.9 (L) Hematocrit 08/12/2023 38.6 (L) MCV 08/12/2023 89 MCH 08/12/2023 29.6 MCHC 08/12/2023 33.4 RDW 08/12/2023 12.8 Platelets 08/12/2023 147 (L) MPV 08/12/2023 10.9 (H) % Neutrophils 08/12/2023 59 % Lymphocytes 08/12/2023 29 % Monocytes 08/12/2023 7 % Eosinophils 08/12/2023 4 % Basophils 08/12/2023 1 Abs. Neutrophils 08/12/2023 3.5 Abs. Lymphocytes 08/12/2023 1.7 Abs. Monocytes 08/12/2023 0.4 Abs. Eosinophils 08/12/2023 0.2 Abs. Basophils 08/12/2023 0.1 Abs. Neutrophils (Auto) 08/12/2023 3,500.0 Lab Results Component Value Date WBC 5.9 08/12/2023 RBC 4.36 (L) 08/12/2023 HCT 38.6 (L) 08/12/2023 MCV 89 08/12/2023 MCH 29.6 08/12/2023 MCHC 33.4 08/12/2023 RDW 12.8 08/12/2023 MPV 10.9 (H) 08/12/2023 Chemistry Component Value Date/Time NA 140 08/12/2023 1315 K 3.8 08/12/2023 1315 CL 110 (H) 08/12/2023 1315 CO2 24 08/12/2023 1315 BUN 18.6 08/12/2023 1315 CREATININE 1.13 08/12/2023 1315 Component Value Date/Time CALCIUM 8.2 (L) 08/12/2023 1315 AST 30 08/12/2023 1315 ALT 19 08/12/2023 1315 BILITOT 0.6 08/12/2023 1315 Imaging: Assessment and Plan Malignant Neoplasm of Colon Naeem Alcantar is a 53 y.o. male with metastatic colon cancer, pMMR, mKRAS. He was on maintenancebevacizumab started January 2018 at 7.5 milligram/kilogram every 2 weeks, and then every 3 weeks since 03/17/2020. But after Dec 03, 2021 infusion, treatment on hold due to dental procedure. Patient completed the full teeth extraction in January 2022. And on 06/17/2022, we resumed the treatment with avastin. Treatment Summary 1. Surgical resection of his primary tumor in March 2017. 2. FOLFOX x 4 cycles 3. Liver resection in July 2017 4. FOLFIRI and Avastin x 8 cycles 5. Avastin January 2018 - Nov; Held due to dental work 06/17/2022 - 03/10/2023. Held due to epidural injectin 05/19/2023 - ongoing Assessment: Clinically, patient has been doing very well. CBC, CMP stable. Today's CEA remains pending however has been quite stable over recent months. Also following protein creatinine urine ratio which is also pending today. It has been 1 year since Terry's most recent CT scan also 1 year since colonoscopy, per attending medical oncologist Dr. Edwin torres to order both. His next visit is October [address] Pineda I will order imaging to be done just prior to visit, colonoscopy will be more dependent upon surgeon schedule. Patient prefers to have both these done at [facility] due to convenience; ordering CT with contrast however patient's creatinine has been labile, orders entered to check creatinine prior to administering contrast. Plan: Ok to proceed to Avastin 7.5 mg/kg, and continue q3w RTC CONFIGURATOR in 6 weeks for follow up visit. Problem List Items Addressed This Visit None Total time spent on this patient's care including interview, exam, discussion and review of necessary images, prior notes, and discussion with other physicians was approximately 30 minutes. Portions of today's documentation have been created with the assistance of voice recognition software. Therefore, it may contain anomalous punctuation, anomalous independent misrecognitions, word substitutions, insertions or omissions. Occasional wrong-word or sound- alike substitutions may also occur, all due to the inherent limitations of voice recognition software. Attempts to correct the above have been made by DESTINEE Nice, but it is recommended that the chart be read carefully to recognize, using context, where the substitutions may have occurred. Electronically signed by: DESTINEE Nice 09/01/2023 documented in this encounter Plan of Treatment Upcoming Encounters Date Type Department Care Team Description 09/21/2023 7:30 AM PST Office Visit [facility] [address] [phone] Pérez Brown MD [address] [place] [phone] 09/23/2023 1:30 PM PST Infusion [facility] Infusion [address], [address] [id number] Shirley Pineda MD [address] [place] [phone] 10/14/2023 12:30 PM PST Infusion [facility] Infusion [address] [address] 10/14/2023 1:00 PM PST Office Visit [facility] Oncology [address] [phone] Shirley Pineda MD [address] [place] [phone] 10/14/2023 1:30 PM PST Infusion [facility] Infusion [address], [address] [place] [address] Shirley Pineda MD [address] [place] [phone] Scheduled Orders Name Type Priority Associated Diagnoses Orde r Schedule CT CHEST ABDOMEN PELVIS WITH CONTRAST Imaging Routine Malignant neoplasm of ascending colon (CMS-HCC) Expected: 10/03/2023 (Approximate), Expires: 12/03/2024 Scheduled Referrals Name Type Priority Associated Diagnoses Order Schedule Ambulatory referral to Gastroenterology Outpatient Referral Routine Malignant neoplasm of ascending colon (CMS-HCC) Ordered: 09/02/2023 documented as of this encounter Visit Diagnoses Diagnosis Malignant neoplasm of ascending colon (CMS-HCC) Malignant neoplasm of ascending colon documented in this encounter Care Teams Stonecutter Hand Relationship Specialty Start Date End Date Noman Yadav MD PCP - General Oncology 04/26/18 documented as of this encounter
[2023-11-22] VITALS (8 sets, daily range): BP systolic 88–119; BP diastolic 51–87; PULSE 60–85; RESP 15–50; TEMP 36.2–36.6; O2SAT 98–100
[2023-11-22] MEDS: LACTATED RINGERS 1,000 ML 100 ML IV (07:28)
--- NOTE | 2023-11-22 07:41 | P.HP_ITS ---
History of Present Illness History of Present Illness Date Patient Seen: 11/22/23 Time Patient Seen: 07:41 Chief complaint: Dx Colonoscopy w/poss bx Narrative: 53-year-old man history of colon cancer status post right hemicolectomy here for screening colonoscopy. Last colonoscopy 1 year ago. No abdominal pain unintentional weight loss blood per rectum. [facility] Medical History Cervical radiculopathy at C7 Sleep apnea Malignant neoplasm of colon GERD (gastroesophageal reflux disease) Surgical History S/P cervical spinal fusion H/O right hemicolectomy History of surgery of liver Family History Mother Hypertension Coronary artery disease Social History household members: spouse Smoking Status: Current every day smoker alcohol intake: current Meds Home Medications and Allergies Home Medications Medication Instructions Recorded Confirmed Type lorazepam 0.5 mg tablet 0.5 mg PO BID PRN anxiety #20 tabs 11/29/20 11/22/23 Rx nitroglycerin 0.6 mg sublingual 0.6 mg sublingual Q5M PRN CHEST 02/19/21 11/22/23 Rx tablet PRESSURE / PAIN #12 tabs bevacizumab 25 mg/mL intravenous 25 mg IV Q3W 03/14/23 11/22/23 History solution (Avastin) losartan 25 mg tablet 25 mg PO DAILY 03/14/23 11/22/23 History pregabalin 75 mg capsule (Lyrica) 75 mg PO BID #60 caps 06/17/23 11/22/23 Rx methocarbamol 500 mg tablet 500 mg PO BEDTIME #60 tabs 09/12/23 11/22/23 Rx Allergies Allergy/AdvReac Type Severity Reaction Status Date / Time No Known Drug Allergies Allergy Verified 11/22/23 07:29 Exam Narrative Exam Narrative: General adult man alert oriented no acute distress Chest nonlabored respiration Extremities warm well perfused Assessment & Plan Assessment & Plan narrative: The patient requires colorectal screening and colonoscopy is recommended. Technical details were discussed. Risks, benefits, alternatives explained. Risks including but not limited to myocardial infarction, aspiration, bleeding, pain, missed lesion, incomplete examination, need for further radiographic studies, colonic perforation, and need for major abdominal surgery were discussed. All questions were answered to their satisfaction, and they are in agreement with this plan.
--- NOTE | 2023-11-22 07:45 | P.OP.COLON_ITS ---
Operative Date/Time/Diagnoses Date of procedure: 11/22/23 Time of procedure: 07:45 Pre-op diagnosis: History of colon cancer Procedure & Clinicians Study performed: Colonoscopy Same procedure as scheduled: Yes Indications: History of colon cancer Surgeon: Neri Bird Procedure Notes Procedure in detail: The history and physical was performed/updated and the patient is ASA class is 2. The procedure was discussed in detail with the patient. Potential risks complications including infection, bleeding, missed diagnosis, perforation, need for surgery, and were explained. Their questions were answered and informed consent was obtained. Patient was brought to the procedure room and placed standard monitoring equipment. The patient's vital signs were monitored continuously throughout the entire procedure. Prior to starting time-out was performed. The patient was placed in the left lateral recumbent position. Procedural sedation was administered by anesthesia. Examination began with a thorough inspection of the perianal area there was no evidence of fissures, fistulae, external hemorrhoids or cutaneous malignancy. The colonoscopy scope was then placed into the anal canal and was advanced forward. We reached the ileocolonic anastomosis which was normal in appearance no evidence of recurrent colon cancer. The scope was then slowly withdrawn examining the mucosa as we went The patient tolerated the procedure well. They will be discharged once criteria are met. The prep was of good/excellent quality. The withdrawl time was 7 minutes. FINDINGS * Normal ileocolonic anastomosis. * No masses or polyps. Specimen(s): none sent Impression: Normal colonoscopy status post right hemicolectomy Post-procedure Recommendations: Colonoscopy in 1 year Disposition: same day surgery
== END 2023-11-22 08:52 | disposition home or self-care (01) ==
PROVIDERS: PCP Physician Assistant; Referring Provider Surgery; Visit Provider Surgery
PROC: 0DJD8ZZ Inspection of Lower Intestinal Tract, Via Natural or Artificial Opening Endoscopic (ICD-10-PCS; CPT 45378; principal; 2023-11-22 07:45)
DX: Z12.11 Encounter for screening for malignant neoplasm of colon (principal); Z85.038 Personal history of other malignant neoplasm of large intestine
CPT/HCPCS: 45378; J2704

== ENCOUNTER → 2024-01-24 15:11 | Outpatient (CLI) | payer OTHER, SELFPAY ==
[2020-11-28 04:13] VITALS: BMI 24.5
[2024-01-24 15:59] LABS: BUN Creatinine Ratio 13.6 (6-22); Blood Urea Nitrogen 17 mg/dL (9-20); Calcium 8.4 mg/dL (8.4-10.2); Carbon Dioxide 22 mmol/L (22-32); Chloride 109 mmol/L (98-107); Estimated Glomerular Filt Rate > 60 mL/min (>60); Glucose 132 mg/dL (70-100); HEMOLYSIS < 15 (0-50); Magnesium 1.9 mg/dL (1.6-2.3); Sodium 135 mmol/L (137-145)
[2024-01-24 17:59] LABS: Creatinine Urine Random 155.8 mg/dL; Protein (Total) Urine Random 58 mg/dL (0-12); Protein Creatinine Ratio Urine 0.37 GRAM/24H
[2024-01-26 12:52] LABS: Parathyroid Hormone Int 53 pg/mL (15-65)
== END ==
LOC: LAB 15:13
PROVIDERS: PCP Physician Assistant; Referring Provider Student in an Organized Health Care Education/Training Program; Visit Provider Student in an Organized Health Care Education/Training Program
DX: N05.9 Unspecified nephritic syndrome with unspecified morphologic changes (principal); E83.40 Disorders of magnesium metabolism, unspecified; N25.81 Secondary hyperparathyroidism of renal origin; R80.9 Proteinuria, unspecified
CPT/HCPCS: 36415; 80048; 82570; 83735; 83970; 84156

== ENCOUNTER 2024-02-26 23:10 | Emergency (ER) | payer OTHER, SELFPAY ==
[2020-11-28 04:13] VITALS: BMI 24.5
[2024-02-26 23:19] VITALS: BP 179/116; PULSE 69; RESP 18; TEMP 36.8; O2SAT 99; BMI 25.0
--- NOTE | 2024-02-26 23:25 | ED.CHESTPAIN ---
HPI - Chest Pain General Chief Complaint: Chest Pain Stated Complaint: chest pain, sob Time Seen by Provider: 02/26/24 23:25 Source: patient Mode of arrival: Ambulatory Limitations: no limitations History of Present Illness HPI narrative: This is a 54-year-old male with stage IV colon cancer on Avastin, hypertension, chronic kidney disease stage 3 with prior liver resection for metastases and port on his left side placed in 2016. Patient presents with complaint of left-sided chest pain close to the area of his port and radiating around to the side. He states worse with deep inhalation, does not have any changes with movement or exertion. He has been a little bit short of breath particularly with walking or exertion. But some mild symptoms at rest as well. Denies any fevers this week but had a fever a week ago Tuesday. Denies any nausea or vomiting. No syncope or lightheadedness. No issues with bowel movements, no issues with urination. States no real swelling in his lower extremities except his right foot looked slightly more swollen today than yesterday. Patient states he is on losartan for hypertension as well as Avastin for his colon cancer. He is not on blood thinners. States he has had a prior cervical fusion, colon resection and liver resection for metastases. No known drug allergies. Does use tobacco, occasional alcohol, no recreational or IV drugs. Primary care is Dr. Felder, his Pharmacy Technician Per Diem is Dr. Barahona and his oncologist is Dr. Pineda in [facility]. Related Data Home Medications Medication Instructions Recorded Confirmed bevacizumab 25 mg/mL intravenous 25 mg IV Q3W 03/14/23 11/22/23 solution (Avastin) losartan 25 mg tablet 25 mg PO DAILY 03/14/23 11/22/23 Previous Rx's Medication Instructions Recorded lorazepam 0.5 mg tablet 0.5 mg PO BID PRN anxiety #20 tabs 11/29/20 nitroglycerin 0.6 mg sublingual 0.6 mg sublingual Q5M PRN CHEST 02/19/21 tablet PRESSURE / PAIN #12 tabs pregabalin 75 mg capsule (Lyrica) 75 mg PO BID #60 caps 06/17/23 methocarbamol 500 mg tablet 500 mg PO BEDTIME #60 tabs 09/12/23 Allergies Allergy/AdvReac Type Severity Reaction Status Date / Time No Known Drug Allergies Allergy Verified 11/22/23 07:29 Review of Systems Review of Systems ROS Unobtainable: All systems reviewed & are unremarkable except as noted in HPI and below Patient History Medical History Cervical radiculopathy at C7 Sleep apnea Malignant neoplasm of colon GERD (gastroesophageal reflux disease) Surgical History S/P cervical spinal fusion H/O right hemicolectomy History of surgery of liver Family History Mother Hypertension Coronary artery disease Social History household members: spouse Smoking Status: Current every day smoker alcohol intake: current Smoking Status: Current every day smoker alcohol intake frequency: a few times a month Substance Use Type: does not use Exam Narrative Exam Narrative: GENERAL: Alert and oriented x three, well-appearing, well-nourished male in mild distress. HEENT: Head normocephalic, atraumatic, EOMI, pupils reactive, face symmetric, moist mucous membranes NECK: Supple, full range of motion CARDIOVASCULAR: Regular rate and rhythm without murmurs, rubs or gallops. No JVD. Patient has port on the left chest with no erythema, swelling or other changes. RESPIRATORY: Breath sounds equal bilaterally, no wheezes rales or rhonchi. No tachypnea accessory muscle use. ABDOMEN: Soft, nontender. Normoactive bowel sounds all 4 quadrants. No guarding or rebound, rigidity, no mass : No CVA tenderness EXTREMITIES: Normal range of motion, no clubbing or edema. 2+ pulses bilateral lower extremities. Neurovascularly intact NEUROLOGICAL: Cranial nerves II through XII grossly intact. Moving all extremities SKIN: Warm, dry, no petechiae, no rashes or lesions. Initial Vital Signs Initial Vital Signs: Vital Signs Temperature 98.3 F 02/26/24 23:19 Pulse Rate 69 02/26/24 23:19 Respiratory Rate 18 02/26/24 23:19 Blood Pressure 179/116 H 02/26/24 23:19 Pulse Oximetry 99 02/26/24 23:19 Oxygen Delivery Method Room Air 02/26/24 23:19 Course Orders Ordered: ED Orders 02/26/24 23:17 Complete Blood Count AUTO DIFF Stat Comprehensive Metabolic Panel Stat Lipase Stat Magnesium Stat PTT Partial Thromboplastin Natalio Stat Prothrombin Time INR Stat Troponin & CK Cardiac Panel Stat 02/26/24 23:24 XR chest 1V Stat EKG-12 Lead Stat 02/27/24 00:08 CT angio chest PE protocol Stat 02/27/24 01:14 Trop I [Troponin I] Stat Discontinued Medications Aspirin (Aspirin 81 Mg Chew Tab) 324 mg PO NOW ONE Stop: 02/26/24 23:25 Last Admin: 02/26/24 23:38 Dose: 324 mg Documented By: Sodium Chloride (Normal Saline 0.9%) 1,000 mls @ 1,000 mls/hr IV BOLUS ONE Stop: 02/27/24 01:07 Last Infusion: 02/27/24 01:30 Dose: Infused Documented By: Infusion: 02/27/24 01:00 Dose: 0 mls/hr Documented By: Admin: 02/27/24 00:18 Dose: 1,000 mls/hr Documented By: Nitroglycerin (Nitroglycerin 0.4 Mg Sl Tab) 0.4 mg SL NOW ONE Stop: 02/27/24 00:09 Last Admin: 02/27/24 00:18 Dose: 0.4 mg Documented By: Vital Signs Vital signs: Vital Signs - 8 hr 02/26/24 23:19 02/26/24 23:26 02/26/24 23:26 Temperature 98.3 F Pulse Rate 69 63 Respiratory Rate 18 21 Blood Pressure 179/116 H 171/107 H Pulse Oximetry 99 98 Oxygen Delivery Method Room Air 02/26/24 23:30 02/26/24 23:30 02/27/24 00:00 Temperature Pulse Rate 65 Respiratory Rate 20 Blood Pressure 165/102 H 161/103 H Pulse Oximetry 98 Oxygen Delivery Method 02/27/24 00:00 02/27/24 00:18 02/27/24 00:31 Temperature Pulse Rate 61 60 61 Respiratory Rate 17 Blood Pressure 161/103 H Pulse Oximetry 98 98 Oxygen Delivery Method 02/27/24 00:33 02/27/24 00:33 02/27/24 01:00 Temperature Pulse Rate 57 L 57 L Respiratory Rate 16 16 Blood Pressure 154/96 H Pulse Oximetry 98 99 Oxygen Delivery Method 02/27/24 01:00 02/27/24 01:30 02/27/24 01:30 Temperature Pulse Rate 56 L Respiratory Rate 16 Blood Pressure 147/93 H 141/88 H Pulse Oximetry 98 Oxygen Delivery Method 02/27/24 02:00 02/27/24 02:00 Temperature Pulse Rate 58 L Respiratory Rate 12 Blood Pressure 145/84 H Pulse Oximetry 98 Oxygen Delivery Method Room Air MDM - Chest Pain Lab Data 02/26/24 23:17 02/26/24 23:17 Labs: Lab Results 02/26/24 02/27/24 Range/Units 23:17 01:14 WBC 7.1 (4.5-11.0) X10^3/uL RBC 4.60 (4.5-5.9) X10^6/uL Hgb 13.5 (13.5-17.5) g/dL Hct 40.5 L (41-53) % MCV 88.0 (80-100) fL MCH 29.4 (26-34) PG MCHC 33.4 (30-36) % RDW 13.9 (11.6-14.8) % Plt Count 148 L (150-400) X10^3/uL Neut % (Auto) 54.1 (50-75) % Lymph % (Auto) 34.6 (25-40) % Lewis % (Auto) 6.6 (3-14) % Eos % (Auto) 3.3 (2-4) % Baso % (Auto) 1.4 (0-2) % Neut # (Auto) 3900 (6903-0685) /uL Lymph # (Auto) 2500 (5912-6259) /uL Lewis # (Auto) 500 (0-900) /uL Eos # (Auto) 200 (0-450) /uL Baso # (Auto) 100 (0-100) /uL PT 12.2 (9.4-12.5) SECONDS INR 1.1 (0.9-1.3) APTT 34 (25.1-36.5) SECONDS Sodium 138 (137-145) mmol/L Potassium 3.7 (3.4-5.1) mmol/L Chloride 108 H (98-107) mmol/L Carbon Dioxide 28 (22-32) mmol/L BUN 19 (9-20) mg/dL Creatinine 1.32 H (0.66-1.25) mg/dL Estimated GFR > 60 (>60) mL/min BUN/Creatinine Ratio 14.4 (6-22) Glucose 123 H (70-100) mg/dL Calcium 9.3 (8.4-10.2) mg/dL Magnesium 2.1 (1.6-2.3) mg/dL Total Bilirubin 0.7 (0.2-1.3) mg/dL AST 27 (17-59) IU/L ALT 18 (<50) IU/L Alkaline Phosphatase 49 (38-126) U/L Total Creatine Kinase 133 (55-170) U/L Troponin I < 0.012 < 0.012 (0.01-0.034) ng/mL Total Protein 7.2 (6.3-8.2) g/dL Albumin 4.3 (3.5-5.0) g/dL Globulin 2.9 (1.7-4.1) g/dL Albumin/Globulin Ratio 1.5 (1.0-2.8) Lipase 76 (23-300) U/L Imaging Data Chest x-ray: Radiologist's Impression: Close Chest X-Ray (Signed) Nate German - 02/26/24 Chest/Abdomen/Pelvis CT (Signed) Teddy Gutierrez - 09/21/23 Cervical/Thoracic Injection (Signed) Teddy Gtuierrez - 04/19/23 Cervical Spine MRI (Signed) Gabriele De La Paz - 03/25/23 Cervical Spine X-Ray (Signed) Jn Nicolas - 03/10/23 Chest/Abdomen/Pelvis CT (Addendum) Teddy Gutierrez - 10/02/22 Abdomen/Pelvis CT (Signed) Gabriele De La Paz - 04/12/22 Chest/Abdomen/Pelvis CT (Signed) Oseas Flores - 03/15/22 Chest/Abdomen/Pelvis CT (Signed) Nate German - 09/22/21 Echocardiogram Ultrasound (Signed) Cj Auguste - 09/01/21 Telemetry Strips 08/24/21 Telemetry Strips 11/28/20 Chest X-Ray (Signed) Liz Bobby - 11/28/[address] (Signed) Liz Bobby - 11/27/[address] (Signed) Vijay Morgan - 11/27/20 Chest/Abdomen/Pelvis CT (Signed) Vijay Morgan - 11/27/20 Telemetry Strips 08/04/20 Abdomen Ultrasound (Signed) UmairMartinez - 07/25/20 Chest/Abdomen/Pelvis CT (Signed) GermanNate - 05/16/20 Catheter Patency X-Ray (Signed) Umair,Martinez - 03/17/20 Chest/Abdomen/Pelvis CT (Signed) Nate German - 10/09/[address] (Signed) Noam Boucher - 07/05/19 Foot X-Ray (Signed) Call,Finn - 07/05/19 Calcaneus X-Ray (Signed) Call,Finn - 07/05/19 Chest/Abdomen/Pelvis CT (Signed) Joleen Martins - 02/27/19 Telemetry Strips 09/26/18 Launch?Image [address] [address] XRay Report Signed Patient: Naeem Parnell MR#: [id number] : 1970 Acct:[id number] Age/Sex: 54 / M Date of Service: 02/26/24 Loc: ED Accession Number: [id number] Procedure: XR chest 1V Ordering Provider: Pili Valencia D.O. PROCEDURE: XR CHEST 1V INDICATIONS: chest pain TECHNIQUE: One view of the chest was acquired. COMPARISON: [facility], , XR CHEST 1V, 11/28/2020, 0:23. FINDINGS: Surgical changes and devices: Left port device. Prior ACDF. Surgical clips in the right upper quadrant. Lungs and pleura: Lungs are clear. No pleural effusions or pneumothorax. Mediastinum: Mediastinal contours appear normal. Heart size is normal. Bones and chest wall: No suspicious bony lesions. Overlying soft tissues appear unremarkable. IMPRESSION: No acute cardiopulmonary abnormalities or focal airspace disease. Dictated by: Nate German M.D. on 02/26/2024 at 23:41 Approved by: Nate German M.D. on 02/26/2024 at 23:42 CT scan - chest: Radiologist's Impression: [address] [address] [address] Scan Report Signed Patient: Naeem Parnell MR#: [id number] : 1970 Acct:[id number] Age/Sex: 54 / M Date of Service: 02/27/24 Loc: ED Accession Number: [id number] Procedure: CT angio chest PE protocol Ordering Provider: Pili Valencia D.O. PROCEDURE: CT ANGIO CHEST PE PROTOCOL INDICATIONS: Left chest pain, has port, colon ca w/ mets stage 4 TECHNIQUE: After the administration of intravenous contrast, 2 mm thick sections acquired from the pulmonary apices to the posterior costophrenic angles. 3-dimensional maximum intensity projection (MIP) coronal and sagittal reformats were then acquired through the thorax. For radiation dose reduction, the following was used: automated exposure control, adjustment of mA and/or kV according to patient size. COMPARISON: [facility], CT, CT CHEST ABD PEL W CON, 09/21/2023, 13:59. FINDINGS: Image quality: Diagnostic. Pulmonary arteries: Pulmonary arteries are normal in size, and demonstrate no intraluminal filling defects to suggest central pulmonary embolism. Lower Neck: No enlarged lymph nodes. Thyroid: No thyroid nodules which require sonographic follow up, per consensus guidelines. Axillae: No enlarged lymph nodes. Chest Wall: Left tunneled port device is in place with the distal tip terminating in the lower SVC.. Bones: Visualized osseous structures appear intact without acute fracture or focal destructive lesion. No acute compression fractures of the imaged spine.. Lungs and Pleura: No pneumothorax or pleural effusions. No consolidation or suspicious nodules. No septal thickening or nodularity. Heart: Heart size is normal. No pericardial effusion. Thoracic Vessels: No aortic aneurysm. Mediastinum and Michelle: No enlarged lymph nodes. Esophagus: No wall thickening. No hiatal hernia. Upper Abdomen: Stable postsurgical changes of the posterior right hepatic lobe. Bilateral renal cysts. IMPRESSION: No pulmonary embolus. No acute cardiopulmonary process. Dictated by: Nate German M.D. on 02/27/2024 at 0:46 Approved by: Nate German M.D. on 02/27/2024 at 0:50 ECG Data Attestation: I personally reviewed and interpreted this ECG as follows: Prior ECG tracings: available for review Interpretation: Sinus rhythm rate of 64 ID 170 QRS of 96 QTC of 422. No acute ST elevation or depression appreciated. Patient has prior from 02/19/2021 which appears similar. EKG 2 shows rate of 54 ID 182 QRS of 92 QTC of 424. EKG appears similar to prior. MDM Narrative Medical decision making narrative: 54-year-old male with history of hypertension, chronic kidney disease stage 3 which he reports is secondary to side effects from his Avastin which he is on for stage IV colon cancer. Patient does live bit hypertensive particularly as diastolic, no hypoxia no tachycardia, no tachypnea afebrile. Patient has had 3 days of pain on the left side of his chest does have some risk for PE secondary to cancer although vitals make this less likely. CBC shows a white count of 7.1 hemoglobin of 13 platelets of 148, INR is 1.1, creatinine is 1.32 slightly elevated but close to his baseline from January of 1.25 and you are before that of 1.14. Sodium is 138 potassium 3.7 chloride 108 with a BUN 19 glucose of 123- LFTs, CK is 133 with a troponin of less than 0.012. This was repeated and is Chest x-ray shows no acute EKG shows sinus rhythm with a rate in the 60s no acute ST changes. Patient was given 1 dose of sublingual nitro secondary to his hypertension. Did receive fluids after CT angio. Imaging is negative for pulmonary emboli or other acute changes. On Re check patient's chest pain has improved. He is resting comfortably his blood pressure is also improved to 140 over 80s. Patient unlikely to be ACS or with negative troponins and no acute ST changes on EKG greater than 2 days of symptoms. Patient was quite hypertensive initially. CT angio was negative for PE, effusions, abscess or fluid collections or metastases. Would have patient follow-up for recheck and continue to monitor blood pressure. Discharge Plan Departure Patient Disposition: Home Clinical Impression: Left-sided chest pain Activity Restrictions/Additional Instructions: Follow up with my physician for recheck Please continue your home medications as prescribed. Continue to monitor your blood pressure if it continues to be elevated talk with your physician about adjusting her blood pressure medication. Please return for new or worsening symptoms increasing shortness of breath, passing out, persistent vomiting, new or increasing swelling extremities or other new or concerning changes. Prescriptions: No Action lorazepam 0.5 mg tablet 0.5 mg PO BID PRN (Reason: anxiety) Qty: 20 0RF nitroglycerin 0.6 mg Tablet, Sublingual 0.6 mg SUBLINGUAL Q5M PRN (Reason: CHEST PRESSURE / PAIN) Qty: 12 0RF Rx Instructions: do not exceed 3 doses per episode losartan 25 mg tablet 25 mg PO DAILY Avastin 25 mg/mL solution 25 mg IV Q3W methocarbamol 500 mg tablet 500 mg PO BEDTIME Qty: 60 2RF pregabalin [Lyrica] 75 mg capsule 75 mg PO BID Qty: 60 1RF Referrals: Raquel Felder PA-C [Primary Care Provider] - Stand Alone Forms: Patient Portal/API
[2024-02-26 23:26] VITALS: BP 171/107; PULSE 63; RESP 21; O2SAT 98
[2024-02-26 23:30] VITALS: BP 165/102; PULSE 65; RESP 20; O2SAT 98
--- NOTE | 2024-02-26 23:32 | PC.NURSE ---
Pt states he woke up suddenly on 02/23/24. Port left upper chest is accessed every 3 weeks for chemotherapy.
[2024-02-26 23:35] LABS: Add Manual Diff / Slide Review NO; Basophils Absolute Auto 100 /uL (0-100); Basophils Percent Auto 1.4 % (0-2); Eosinophils Absolute Auto 200 /uL (0-450); Eosinophils Percent Auto 3.3 % (2-4); Hematocrit 40.5 % (41-53); Hemoglobin 13.5 g/dL (13.5-17.5); INR 1.1 (0.9-1.3); Lymphocytes Absolute Auto 2500 /uL (1100-4500); Lymphocytes Percent Auto 34.6 % (25-40); Mean Corpuscular HGB Conc 33.4 % (30-36); Mean Corpuscular Hemoglobin 29.4 PG (26-34); Monocytes Absolute Auto 500 /uL (0-900); Monocytes Percent Auto 6.6 % (3-14); Neutrophils Absolute Auto 3900 /uL (1500-7000); Neutrophils Percent Auto 54.1 % (50-75); Platelet Count 148 X10^3/uL (150-400); Prothrombin Time 12.2 SECONDS (9.4-12.5); Red Cell Distribution Width 13.9 % (11.6-14.8); White Blood Cell Count 7.1 X10^3/uL (4.5-11.0)
[2024-02-26 23:38] LABS: PTT Partial Thromboplastin Tim 34 SECONDS (25.1-36.5)
[2024-02-26] MEDS: ASPIRIN 81 MG CHEW TAB 324 MG PO (23:38)
[2024-02-26 23:39] LABS: Alanine Aminotransferase 18 IU/L (<50); Albumin 4.3 g/dL (3.5-5.0); Albumin Globulin Ratio 1.5 (1.0-2.8); Alkaline Phosphatase 49 U/L (38-126); Aspartate Aminotransferase 27 IU/L (17-59); BUN Creatinine Ratio 14.4 (6-22); Bilirubin Total 0.7 mg/dL (0.2-1.3); Blood Urea Nitrogen 19 mg/dL (9-20); Calcium 9.3 mg/dL (8.4-10.2); Carbon Dioxide 28 mmol/L (22-32); Chloride 108 mmol/L (98-107); Creatine Kinase 133 U/L (55-170); Estimated Glomerular Filt Rate > 60 mL/min (>60); Globulin 2.9 g/dL (1.7-4.1); Glucose 123 mg/dL (70-100); HEMOLYSIS < 15 (0-50); Lipase 76 U/L (23-300); Magnesium 2.1 mg/dL (1.6-2.3); Potassium 3.7 mmol/L (3.4-5.1); Sodium 138 mmol/L (137-145); Total Protein 7.2 g/dL (6.3-8.2)
[2024-02-26 23:51] LABS: Troponin I < 0.012 ng/mL (0.01-0.034)
[2024-02-27] VITALS (7 sets, daily range): BP systolic 141–161; BP diastolic 84–103; PULSE 56–61; RESP 12–17; O2SAT 98–99
--- NOTE | 2024-02-27 00:08 | DI.CT.S_ITS ---
PROCEDURE: CT ANGIO CHEST PE PROTOCOL INDICATIONS: Left chest pain, has port, colon ca w/ mets stage 4 TECHNIQUE: After the administration of intravenous contrast, 2 mm thick sections acquired from the pulmonary apices to the posterior costophrenic angles. 3-dimensional maximum intensity projection (MIP) coronal and sagittal reformats were then acquired through the thorax. For radiation dose reduction, the following was used: automated exposure control, adjustment of mA and/or kV according to patient size. COMPARISON: [facility], CT, CT CHEST ABD PEL W CON, 09/21/2023, 13:59. FINDINGS: Image quality: Diagnostic. Pulmonary arteries: Pulmonary arteries are normal in size, and demonstrate no intraluminal filling defects to suggest central pulmonary embolism. Lower Neck: No enlarged lymph nodes. Thyroid: No thyroid nodules which require sonographic follow up, per consensus guidelines. Axillae: No enlarged lymph nodes. Chest Wall: Left tunneled port device is in place with the distal tip terminating in the lower SVC.. Bones: Visualized osseous structures appear intact without acute fracture or focal destructive lesion. No acute compression fractures of the imaged spine.. Lungs and Pleura: No pneumothorax or pleural effusions. No consolidation or suspicious nodules. No septal thickening or nodularity. Heart: Heart size is normal. No pericardial effusion. Thoracic Vessels: No aortic aneurysm. Mediastinum and Michelle: No enlarged lymph nodes. Esophagus: No wall thickening. No hiatal hernia. Upper Abdomen: Stable postsurgical changes of the posterior right hepatic lobe. Bilateral renal cysts. IMPRESSION: No pulmonary embolus. No acute cardiopulmonary process. Dictated by: Nate German M.D. on 02/27/2024 at 0:46 Approved by: Nate German M.D. on 02/27/2024 at 0:50
[2024-02-27] MEDS: NITROGLYCERIN 0.4 MG SL TAB SL (00:18)
[2024-02-27] MEDS: SODIUM CHLORIDE 0.9% 1,000 ML 1000 ML IV (00:18)
[2024-02-27 01:49] LABS: Troponin I < 0.012 ng/mL (0.01-0.034)
== END 2024-02-27 02:21 | disposition home or self-care (01) ==
PROVIDERS: Emergency Provider Emergency Medicine; PCP Physician Assistant
DX: R07.9 Chest pain, unspecified (principal)
CPT/HCPCS: 36415; 71045; 71275; 80053; 82550; 83690; 83735; 84484; 85025; 85610; 85730; 93005; 99284; 99285; Q9967

== ENCOUNTER 2024-06-06 14:32 | Emergency (ER) | payer OTHER, SELFPAY ==
[2020-11-28 04:13] VITALS: BMI 24.5
[2024-06-06 14:37] VITALS: BP 112/76; PULSE 77; RESP 18; TEMP 37; O2SAT 97; BMI 23.2
== END 2024-06-06 19:00 | disposition left against medical advice (07) ==
PROVIDERS: Emergency Provider Emergency Medicine; PCP Physician Assistant
CPT/HCPCS: 99281

== ENCOUNTER → 2024-09-21 11:41 | Outpatient (CLI) | payer OTHER, SELFPAY ==
[2020-11-28 04:13] VITALS: BMI 24.5
--- NOTE | 2024-09-21 11:42 | DI.CT.S_ITS ---
PROCEDURE: CT CHEST ABD PEL W CON INDICATIONS: MALIGNANT [place] ASCENDING COLON TECHNIQUE: After the administration of intravenous contrast, 5 mm thick sections acquired from the lung apices to the symphysis. 5 mm coronal and sagittal reformats were performed, with additional 7 mm MIP reformats through the lungs. For radiation dose reduction, the following was used: automated exposure control, adjustment of mA and/or kV according to patient size. COMPARISON: [facility], CT, CT ANGIO CHEST PE PROTOCOL, 02/27/2024, 0:28. [facility], CT, CT CHEST ABD PEL W CON, 09/21/2023, 13:59. [facility], CT, CT CHEST ABD PEL W CON, 05/16/2020, 9:06. FINDINGS: Image quality: Excellent. CHEST: Lower Neck: No enlarged lymph nodes. Thyroid: No thyroid nodules which require sonographic follow up, per consensus guidelines. Axillae: No enlarged lymph nodes. Chest Wall: Unremarkable. Port-A-Cath from left-sided approach extends into the distal SVC. Lungs and Pleura: No pneumothorax or pleural effusions. No consolidation or suspicious nodules. Heart: Heart size is normal. No pericardial effusion. Thoracic Vessels: The aorta and pulmonary arteries demonstrate normal size. Mediastinum and Michelle: No enlarged lymph nodes. Esophagus: No wall thickening. No hiatal hernia. ABDOMEN: Liver: No solid mass. Stable appearing high density foci centered within the right hepatic lobe both superiorly and inferiorly likely reflect prior metastatic disease ablation therapy. Gallbladder: No radiopaque gallstones or wall thickening. Biliary ducts: No biliary dilation. Pancreas: No ductal dilation. Spleen: Size is within normal limits. Adrenal Glands: No adrenal nodules. Kidneys and Ureters: No hydronephrosis. No solid mass. No complex renal cystic lesion which requires follow up. Stomach and Bowel: Normal colonic caliber, without significant wall thickening. Peritoneum: No abnormal intraperitoneal fluid. No free air. Ventral Wall: No significant ventral hernia. Abdominal Nodes: No retroperitoneal or mesenteric adenopathy by size criteria. Vessels: Aorta and inferior vena cava are normal in size. PELVIS: Pelvic Organs: Unremarkable. Bladder: No bladder wall thickening, accounting for underdistention. Pelvic Nodes: No enlarged lymph nodes. Miscellaneous: No inguinal hernias are seen. Bones: No aggressive osseous abnormality. IMPRESSION: 1. No metastatic disease found. 2. Postsurgical changes of right hemicolectomy. 3. Post treatment changes of prior hepatic metastatic disease ablation therapy. Port-A-Cath remains in normal position. Dictated by: Martinez Block M.D. on 09/21/2024 at 16:26 Approved by: Martinez Block M.D. on 09/21/2024 at 16:34
== END ==
PROVIDERS: PCP Physician Assistant; Referring Provider Nurse Practitioner; Visit Provider Nurse Practitioner
DX: Z51.12 Encounter for antineoplastic immunotherapy (principal); C18.2 Malignant neoplasm of ascending colon; Z90.49 Acquired absence of other specified parts of digestive tract; Z95.828 Presence of other vascular implants and grafts
CPT/HCPCS: 71260; 74177; Q9967

== ENCOUNTER → 2024-09-25 12:36 | Outpatient (CLI) | payer OTHER, SELFPAY ==
[2020-11-28 04:13] VITALS: BMI 24.5
[2024-09-25 13:44] LABS: BUN Creatinine Ratio 16.1 (6-22); Blood Urea Nitrogen 19 mg/dL (9-20); Calcium 8.6 mg/dL (8.4-10.2); Carbon Dioxide 26 mmol/L (22-32); Chloride 106 mmol/L (98-107); Estimated Glomerular Filt Rate > 60 mL/min (>60); Glucose 139 mg/dL (70-100); HEMOLYSIS < 15 (0-50); Potassium 4.4 mmol/L (3.4-5.1); Sodium 138 mmol/L (137-145)
[2024-09-25 14:33] LABS: Protein (Total) Urine Random 87 mg/dL (0-12); Protein Creatinine Ratio Urine 1.17 GRAM/24H
[2024-09-26 08:36] LABS: Parathyroid Hormone Int 42 pg/mL (15-65)
== END ==
PROVIDERS: PCP Physician Assistant; Referring Provider Student in an Organized Health Care Education/Training Program; Visit Provider Student in an Organized Health Care Education/Training Program
DX: N05.9 Unspecified nephritic syndrome with unspecified morphologic changes (principal); E83.40 Disorders of magnesium metabolism, unspecified; R80.9 Proteinuria, unspecified; N25.81 Secondary hyperparathyroidism of renal origin
CPT/HCPCS: 36415; 80048; 82570; 83735; 83970; 84156

== ENCOUNTER 2024-11-13 23:38 | Emergency (ER) | payer OTHER, SELFPAY ==
[2020-11-28 04:13] VITALS: BMI 24.5
[2024-11-13 23:45] VITALS: BP 139/91; PULSE 61; RESP 18; TEMP 36.7; O2SAT 99; BMI 23.6
[2024-11-14] VITALS (9 sets, daily range): BP systolic 126–173; BP diastolic 77–96; PULSE 53–63; RESP 12–19; O2SAT 97–100
--- NOTE | 2024-11-14 00:02 | EKG_ITS ---
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
--- NOTE | 2024-11-14 00:13 | DI.RAD.S_ITS ---
PROCEDURE: XR CHEST 1V INDICATIONS: chest pain TECHNIQUE: One view of the chest was acquired. COMPARISON: [facility], CR, XR CHEST 1V, 02/26/2024, 23:31. FINDINGS: Surgical changes and devices: Left chest wall Port-A-Cath tip is in SVC. Postsurgical changes are noted in lower cervical spine. Surgical clips also seen in right upper quadrant abdomen. Lungs and pleura: Lungs are clear. No pleural effusions or pneumothorax. Mediastinum: Mediastinal contours appear normal. Heart size is normal. Bones and chest wall: No suspicious bony lesions. Overlying soft tissues appear unremarkable. IMPRESSION: No acute cardiopulmonary pathology. Dictated by: Dwight Means M.D. on 11/14/2024 at 1:21 Approved by: Dwight Means M.D. on 11/14/2024 at 1:22
[2024-11-14 00:53] LABS: Add Manual Diff / Slide Review NO; Basophils Absolute Auto 100 /uL (0-100); Basophils Percent Auto 0.7 % (0-2); Eosinophils Absolute Auto 300 /uL (0-450); Eosinophils Percent Auto 4.1 % (2-4); Hematocrit 36.4 % (41-53); Hemoglobin 12.2 g/dL (13.5-17.5); Lymphocytes Absolute Auto 2600 /uL (1100-4500); Lymphocytes Percent Auto 32.8 % (25-40); Mean Corpuscular HGB Conc 33.5 % (30-36); Mean Corpuscular Hemoglobin 29.7 PG (26-34); Mean Corpuscular Volume 88.7 fL (80-100); Monocytes Absolute Auto 800 /uL (0-900); Monocytes Percent Auto 10.2 % (3-14); Neutrophils Absolute Auto 4100 /uL (1500-7000); Neutrophils Percent Auto 52.2 % (50-75); Platelet Count 138 X10^3/uL (150-400); Red Cell Distribution Width 13.6 % (11.6-14.8); White Blood Cell Count 7.8 X10^3/uL (4.5-11.0)
[2024-11-14 00:55] LABS: Prothrombin Time 11.7 SECONDS (9.4-12.5)
[2024-11-14 00:57] LABS: PTT Partial Thromboplastin Tim 32 SECONDS (25.1-36.5)
[2024-11-14 01:00] LABS: Alanine Aminotransferase 15 IU/L (<50); Albumin 3.4 g/dL (3.5-5.0); Albumin Globulin Ratio 1.1 (1.0-2.8); Alkaline Phosphatase 59 U/L (38-126); Aspartate Aminotransferase 27 IU/L (17-59); BUN Creatinine Ratio 15.2 (6-22); Bilirubin Total 0.3 mg/dL (0.2-1.3); Blood Urea Nitrogen 16 mg/dL (9-20); Calcium 8.1 mg/dL (8.4-10.2); Carbon Dioxide 22 mmol/L (22-32); Chloride 110 mmol/L (98-107); Creatine Kinase 125 U/L (55-170); Estimated Glomerular Filt Rate > 60 mL/min (>60); Glucose 104 mg/dL (70-100); HEMOLYSIS < 15 (0-50); Lipase 98 U/L (23-300); Magnesium 1.9 mg/dL (1.6-2.3); Potassium 3.8 mmol/L (3.4-5.1); Sodium 135 mmol/L (137-145); Total Protein 6.4 g/dL (6.3-8.2)
[2024-11-14 01:11] LABS: NT-proBNP (BNP-Adult 18+) 75 pg/mL (<125); Troponin I < 0.012 ng/mL (0.01-0.034)
[2024-11-14] MEDS: ASPIRIN 81 MG CHEW TAB 324 MG PO (02:18)
--- NOTE | 2024-11-14 02:44 | ED.CHESTPAIN ---
HPI - Chest Pain General Chief Complaint: Chest Pain Stated Complaint: rt side back pain Time Seen by Provider: 11/14/24 02:09 Source: patient Mode of arrival: Ambulatory Limitations: no limitations History of Present Illness HPI narrative: 54-year-old male with history of stage IV colorectal cancer on Avastin, reported history of chronic kidney disease presents by private vehicle from home for 3-4 days of right-sided abdominal/flank pain. Pain is dull, occasionally radiates downward into his abdomen. Nothing seems to make it better or worse. The pain worsened in intensity this evening and he decided to present for evaluation. Also reporting dull left-sided chest pain this evening to triage, however on my evaluation patient was denying chest pain. Related Data Home Medications Medication Instructions Recorded Confirmed bevacizumab 25 mg/mL intravenous 25 mg IV Q3W 03/14/23 11/22/23 solution (Avastin) losartan 25 mg tablet 25 mg PO DAILY 03/14/23 11/22/23 Previous Rx's Medication Instructions Recorded lorazepam 0.5 mg tablet 0.5 mg PO BID PRN anxiety #20 tabs 11/29/20 nitroglycerin 0.6 mg sublingual 0.6 mg sublingual Q5M PRN CHEST 02/19/21 tablet PRESSURE / PAIN #12 tabs pregabalin 75 mg capsule (Lyrica) 75 mg PO BID #60 caps 06/17/23 methocarbamol 500 mg tablet 500 mg PO BEDTIME #60 tabs 09/12/23 sodium,potassium,mag sulfates 17.5 See Rx Instructions PO .COMPLEX 11/02/24 gram-3.13 gram-1.6 gram oral soln #354 mL (Suprep Bowel Prep Kit) Allergies Allergy/AdvReac Type Severity Reaction Status Date / Time No Known Drug Allergies Allergy Verified 11/22/23 07:29 Patient History Medical History Cervical radiculopathy at C7 Sleep apnea Malignant neoplasm of colon GERD (gastroesophageal reflux disease) Surgical History S/P cervical spinal fusion H/O right hemicolectomy History of surgery of liver Family History Mother Hypertension Coronary artery disease Social History household members: spouse Smoking Status: Current every day smoker alcohol intake: current Smoking Status: Current every day smoker alcohol intake frequency: a few times a month Exam Initial Vital Signs Initial Vital Signs: Vital Signs Temperature 98.1 F 11/13/24 23:45 Pulse Rate 61 11/13/24 23:45 Respiratory Rate 18 11/13/24 23:45 Blood Pressure 139/91 H 11/13/24 23:45 Pulse Oximetry 99 11/13/24 23:45 Oxygen Delivery Method Room Air 11/13/24 23:45 Const: Awake, alert, no acute distress, nontoxic appearing Cardiac: regular rate, regular rhythm RESP: unlabored, clear bilaterally, no wheezing GI: Soft, generalized tenderness to palpation over the mid right abdomen MSK back: generalized tenderness along right back Skin: Warm, Dry, intact, no rashes Neuro: AO x3, CN II-XII grossly intact, moves all extremities Course Orders Ordered: Discontinued Medications Aspirin (Aspirin 81 Mg Chew Tab) 324 mg PO NOW ONE Stop: 11/14/24 00:13 Last Admin: 11/14/24 02:18 Dose: 324 mg Documented By: MARIAM Morphine Sulfate (Morphine 4 Mg/Ml Inj) 4 mg IV NOW ONE Stop: 11/14/24 02:46 Last Admin: 11/14/24 02:54 Dose: 4 mg Documented By: MARIAM Vital Signs Vital signs: Vital Signs - 8 hr 11/13/24 23:45 11/14/24 02:11 11/14/24 02:12 Temperature 98.1 F Pulse Rate 61 58 L Respiratory Rate 18 Blood Pressure 139/91 H Pulse Oximetry 99 97 99 Oxygen Delivery Method Room Air 11/14/24 02:12 11/14/24 02:30 11/14/24 02:31 Temperature Pulse Rate 54 L 55 L Respiratory Rate 16 19 Blood Pressure 173/96 H Pulse Oximetry 100 100 Oxygen Delivery Method 11/14/24 02:31 11/14/24 03:00 11/14/24 03:00 Temperature Pulse Rate 63 Respiratory Rate 12 Blood Pressure 144/88 H 130/82 Pulse Oximetry 98 Oxygen Delivery Method 11/14/24 03:30 11/14/24 03:30 11/14/24 04:00 Temperature Pulse Rate 61 53 L Respiratory Rate 15 13 Blood Pressure 126/77 Pulse Oximetry 98 98 Oxygen Delivery Method 11/14/24 04:30 Temperature Pulse Rate 53 L Respiratory Rate 13 Blood Pressure Pulse Oximetry 97 Oxygen Delivery Method Room Air MDM - Chest Pain Lab Data 11/14/24 00:36 11/14/24 00:36 Labs: Lab Results 11/14/24 11/14/24 Range/Units 00:36 04:20 WBC 7.8 (4.5-11.0) X10^3/uL RBC 4.10 L (4.5-5.9) X10^6/uL Hgb 12.2 L (13.5-17.5) g/dL Hct 36.4 L (41-53) % MCV 88.7 (80-100) fL MCH 29.7 (26-34) PG MCHC 33.5 (30-36) % RDW 13.6 (11.6-14.8) % Plt Count 138 L (150-400) X10^3/uL Neut % (Auto) 52.2 (50-75) % Lymph % (Auto) 32.8 (25-40) % [place] % (Auto) 10.2 (3-14) % Eos % (Auto) 4.1 H (2-4) % Baso % (Auto) 0.7 (0-2) % Neut # (Auto) 4100 (8945-8395) /uL Lymph # (Auto) 2600 (0407-1251) /uL [place] # (Auto) 800 (0-900) /uL Eos # (Auto) 300 (0-450) /uL Baso # (Auto) 100 (0-100) /uL PT 11.7 (9.4-12.5) SECONDS INR 1.0 (0.9-1.3) APTT 32 (25.1-36.5) SECONDS Sodium 135 L (137-145) mmol/L Potassium 3.8 (3.4-5.1) mmol/L Chloride 110 H (98-107) mmol/L Carbon Dioxide 22 (22-32) mmol/L BUN 16 (9-20) mg/dL Creatinine 1.05 (0.66-1.25) mg/dL Estimated GFR > 60 (>60) mL/min BUN/Creatinine Ratio 15.2 (6-22) Glucose 104 H (70-100) mg/dL Calcium 8.1 L (8.4-10.2) mg/dL Magnesium 1.9 (1.6-2.3) mg/dL Total Bilirubin 0.3 (0.2-1.3) mg/dL AST 27 (17-59) IU/L ALT 15 (<50) IU/L Alkaline Phosphatase 59 (38-126) U/L Total Creatine Kinase 125 (55-170) U/L Troponin I < 0.012 (0.01-0.034) ng/mL NT-Pro-B Natriuret Pep 75 (<125) pg/mL Total Protein 6.4 (6.3-8.2) g/dL Albumin 3.4 L (3.5-5.0) g/dL Globulin 3.0 (1.7-4.1) g/dL Albumin/Globulin Ratio 1.1 (1.0-2.8) Lipase 98 (23-300) U/L Urine RBC None seen (0-5/HPF) Urine WBC None seen (0-5/HPF) Ur Squamous Epith Cells None seen (0-5/HPF) Urine Bacteria Occasional (0-1) (None) Hyaline Casts None seen (None) Ur Culture Indicated? Cult not indicated Vol Urine Centrifuged 10ml (spun) Urine Dip Bedside Urine Glucose Negative Bedside Urine Bilirubin - Negative Bedside Urine Ketone - Negative Urine Specific [place] 1.010 Bedside Urine Occult Blood - Negative Bedside Urine pH 5.5 Bedside Urine Protein + 30 Bedside Urine Urobilinogen - Negative Bedside Urine Nitrite - Negative Bedside Urine Leukocytes - Negative Esterase Imaging Data CT scan - abdomen/pelvis: Radiologist's Impression: PROCEDURE: CT ABDOMEN PELVIS W CON INDICATIONS: R FLANK PAIN TECHNIQUE: After the administration of intravenous contrast, axial sections acquired from the lung bases to the pubic symphysis. Coronal and sagittal reformats were performed. For radiation dose reduction, the following was used: automated exposure control, adjustment of mA and/or kV according to patient size. COMPARISON: [facility], CT, CT ABDOMEN PELVIS W CON, 04/12/2022, 13:00. FINDINGS: Image quality: Diagnostic. Lower Chest: No significant findings. ABDOMEN: Liver: No solid mass. Surgical clips versus coarse calcifications in the liver, unchanged from prior. Gallbladder: No radiopaque gallstones or wall thickening. Biliary ducts: No biliary dilation. Pancreas: No ductal dilation. Spleen: Size is within normal limits. Adrenal Glands: No adrenal nodules. Kidneys and Ureters: No hydronephrosis. No solid mass. No complex renal cystic lesion which requires follow up. Stomach and Bowel: Normal colonic caliber, without significant wall thickening. Prior ileocecectomy Peritoneum: No abnormal intraperitoneal fluid. No free air. Ventral Wall: No significant ventral hernia. Abdominal Nodes: No retroperitoneal or mesenteric adenopathy by size criteria. Vessels: Aorta and inferior vena cava are normal in size. PELVIS: Pelvic Organs: Unremarkable. Bladder: No bladder wall thickening, accounting for underdistention. Pelvic Nodes: No enlarged lymph nodes. Miscellaneous: No inguinal hernias are seen. Bones: No aggressive osseous abnormality. Ankylosis of the sacroiliac joints. IMPRESSION: No findings to explain the patient's right lower quadrant pain. Ankylosis of the sacroiliac joints, which may indicate ankylosing spondylitis. Agree with preliminary report. Dictated by: Jn Nicolas M.D. on 11/14/2024 at 7:14 Approved by: Jn Nicolas M.D. on 11/14/2024 at 7:19 [facility] Narrative Medical decision making narrative: Nontoxic patient with the above complaint. Exam is relatively unremarkable, there is vague right-sided pain without significant focality. Laboratory work was unremarkable, undetectable troponin, chest x-ray unremarkable. EKG shows no acute findings. Heart score 1 based on age, patient has no known cardiac disease otherwise. CT of the abdomen and pelvis does not show any cause of right sided pain. Patient advised of lab and imaging findings. Recommended close PCP follow up. ED return precautions discussed at bedside Discharge Plan Departure Patient Disposition: Home Clinical Impression: Abdominal pain Instructions: DI for Abdominal Pain-Adult Activity Restrictions/Additional Instructions: Your laboratory work and CT imaging today did not show any abnormal findings. I do not know the cause of your right-sided pains. Take Tylenol and ibuprofen at home as needed for symptoms. Follow up with your primary care doctor if you continue to experience pains. Prescriptions: No Action sodium,potassium,mag sulfates [Suprep Bowel Prep Kit] 17.5-3.13-1.6 gram recon soln See Rx Instructions PO .COMPLEX Qty: 354 0RF Rx Instructions: take as directed by Physician lorazepam 0.5 mg tablet 0.5 mg PO BID PRN (Reason: anxiety) Qty: 20 0RF nitroglycerin 0.6 mg Tablet, Sublingual 0.6 mg SUBLINGUAL Q5M PRN (Reason: CHEST PRESSURE / PAIN) Qty: 12 0RF Rx Instructions: do not exceed 3 doses per episode losartan 25 mg tablet 25 mg PO DAILY Avastin 25 mg/mL solution 25 mg IV Q3W methocarbamol 500 mg tablet 500 mg PO BEDTIME Qty: 60 2RF pregabalin [Lyrica] 75 mg capsule 75 mg PO BID Qty: 60 1RF Referrals: Raquel Felder PA-C [Primary Care Provider] - Stand Alone Forms: Patient Portal/API/Survey
--- NOTE | 2024-11-14 02:52 | EKG_ITS ---
[facility] [address], [place] [address] Test Date: 2024-11-14 Pat Name: Naeem Parnell Department: [facility] Room: Gender: Male Front Desk Agent: : 1970 Requested By: Order Number: [id number] Reading MD: Donovan Flores MD Measurements Intervals Nabb Rate: 54 P: 77 MT: 174 QRS: 73 QRSD: 92 T: 47 QT: 426 QTc: 403 Interpretive Statements Sinus bradycardia Electronically Signed On 11-14-2024 6:40:59 PST by Donovan Flores MD
[2024-11-14] MEDS: MORPHINE 4 MG/ML INJ IV (02:54)
[2024-11-14 05:21] LABS: Bacteria Urine Occasional (0-1); Culture Indicated Urine Cult Not Indicated; Hyaline Casts Urine None Seen; RBC Urine None Seen (0-5/HPF); Squamous Epithelial Cell Urine None Seen (0-5/HPF); Urine Volume 10mL (spun); WBC Urine None Seen (0-5/HPF)
== END 2024-11-14 05:02 | disposition home or self-care (01) ==
PROVIDERS: Emergency Provider Emergency Medicine; PCP Physician Assistant
DX: R10.9 Unspecified abdominal pain (principal); R07.9 Chest pain, unspecified; Z85.038 Personal history of other malignant neoplasm of large intestine; F17.210 Nicotine dependence, cigarettes, uncomplicated
CPT/HCPCS: 36415; 71045; 74177; 80053; 81003; 81015; 82550; 83690; 83735; 83880; 84484; 85025; 85610; 85730; 93005; 93010; 96374; 99284; J2270; Q9967

== ENCOUNTER 2024-11-19 09:01 | Day surgery (SDC) | payer OTHER, SELFPAY ==
[2020-11-28 04:13] VITALS: BMI 24.5
[2024-11-19 09:58] VITALS: BP 130/83; PULSE 55; RESP 18; TEMP 36.8; O2SAT 100
[2024-11-19] MEDS: SODIUM CHLORIDE 0.9% 1,000 ML 84 ML IV (10:09)
--- NOTE | 2024-11-19 10:35 | PM.HP.1 ---
History of Present Illness History of Present Illness Date Patient Seen: 11/19/24 Time Patient Seen: 10:35 Chief complaint: Screening Colonoscopy Narrative: 54-year-old white male status post right hemicolectomy for colon cancer in 2017, with metastatic disease on Avastin, here for annual colonoscopy surveillance. He has been having some abdominal pain, no changes in weight. [facility] Medical History Cervical radiculopathy at C7 Sleep apnea Malignant neoplasm of colon GERD (gastroesophageal reflux disease) Surgical History S/P cervical spinal fusion H/O right hemicolectomy History of surgery of liver Family History Mother Hypertension Coronary artery disease Social History household members: spouse Smoking Status: Current every day smoker alcohol intake: current Meds Home Medications and Allergies Home Medications Medication Instructions Recorded Confirmed Type lorazepam 0.5 mg tablet 0.5 mg PO BID PRN anxiety #20 tabs 11/29/20 11/22/23 Rx nitroglycerin 0.6 mg sublingual 0.6 mg sublingual Q5M PRN CHEST 02/19/21 11/22/23 Rx tablet PRESSURE / PAIN #12 tabs bevacizumab 25 mg/mL intravenous 25 mg IV Q3W 03/14/23 11/22/23 History solution (Avastin) losartan 25 mg tablet 25 mg PO DAILY 03/14/23 11/22/23 History pregabalin 75 mg capsule (Lyrica) 75 mg PO BID #60 caps 06/17/23 11/22/23 Rx methocarbamol 500 mg tablet 500 mg PO BEDTIME #60 tabs 09/12/23 11/22/23 Rx sodium,potassium,mag sulfates 17.5 See Rx Instructions PO .COMPLEX 11/02/24 Rx gram-3.13 gram-1.6 gram oral soln #354 mL (Suprep Bowel Prep Kit) Allergies Allergy/AdvReac Type Severity Reaction Status Date / Time No Known Drug Allergies Allergy Verified 11/22/23 07:29 Review of Systems Review of Systems ROS: Yes All systems reviewed with the patient and are negative except as otherwise documented Exam Vital Signs (past 8 hours): - 11/19/24 09:58 Temperature 98.3 F Pulse Rate 55 L Respiratory Rate 18 Blood Pressure 130/83 Pulse Oximetry 100 Oxygen Delivery Method Room Air Oxygen Delivery Method Room Air Narrative Exam Narrative: Gen: NAD, sitting comfortably in bed, appears well HEENT: Sclera are anicteric, head is normocephalic and atraumatic, trachea is midline. CV: RRR, no JVD Resp: clear to auscultation bilaterally, equal chest wall movement bilaterally Abd: soft, nontender, normoactive bowel sounds Ext: no edema, full range of motion Neuro: Cranial nerves II-XII grossly intact, no focal deficits Skin: No erythema or ecchymosis Assessment & Plan Assessment and plan (1) Malignant neoplasm of colon: Problem details: Metastatic colon cancer. Qualifiers: Colon location: unspecified part of colon Qualified Code(s): C18.9 - Malignant neoplasm of colon, unspecified Status: Chronic Assessment & Plan narrative: Patient presents for colonoscopy Risks, benefits, alternatives to colonoscopy explained, including but not limited to bowel perforation or other serious complication requiring surgery at less than 1 in 5000 colonoscopies, abdominal pain, cramping or bleeding and less than 1% of colonoscopies, and the chances that we find a diagnosis that would require further intervention of about 2%. Patient agrees to proceed. Time-Based Coding :: [TOTAL MINUTES] spent with patient and on the chart (including review of chart, obtaining history, exam, reviewing outside data, placing orders, documenting exam and treatment plan, and counseling patient) on [DATE].
--- NOTE | 2024-11-19 10:49 | PM.OP.COLON ---
Operative Date/Time/Diagnoses Date of procedure: 11/19/24 Time of procedure: 10:49 Pre-op diagnosis: Personal history of colon cancer status post right hemicolectomy Post-op diagnosis: same Procedure & Clinicians Study performed: Surveillance colonoscopy Same procedure as scheduled: Yes Indications: Personal history of colon cancer Surgeon: Williams Olivares Procedure Notes SCOAP/Timeout: Performed Procedure in detail: Time-out was performed. Mac was induced. Patient was placed in left lateral decubitus position. The perineum was inspected without any gross abnormality. Lubricated pediatric colonoscope was inserted and advanced to the ileocolonic anastomosis. The terminal ileum was intubated. The colonoscope was withdrawn slowly inspecting the circumference of the colon. Very small polyps may have been missed, prep quality was adequate. Retroflexed view of the rectum showed small, non prolapsed nonbleeding internal hemorrhoids. The scope was withdrawn the patient was taken to PACU in good condition. Scope withdrawal time: 4 Sedation minutes: 8 Findings: internal hemorrhoids and other findings (Widely patent anastomosis) Impression: Normal postoperative colonoscopy Post-procedure Recommendations: Colonoscopy in 1 year Follow up: as needed Disposition: PACU
[2024-11-19 10:52] VITALS: BP 96/68; PULSE 67; RESP 16; TEMP 36.2; O2SAT 97
[2024-11-19 10:56] VITALS: BP 99/65; PULSE 61; RESP 18; O2SAT 98
[2024-11-19 11:01] VITALS: BP 100/67; PULSE 51; RESP 20; O2SAT 99
[2024-11-19 11:07] VITALS: BP 111/80; PULSE 51; RESP 16; O2SAT 97
== END 2024-11-19 11:34 | disposition home or self-care (01) ==
PROVIDERS: PCP Physician Assistant; Referring Provider Surgery; Visit Provider Surgery
PROC: 0DJD8ZZ Inspection of Lower Intestinal Tract, Via Natural or Artificial Opening Endoscopic (ICD-10-PCS; CPT 45378; principal; 2024-11-19 10:15)
DX: Z12.11 Encounter for screening for malignant neoplasm of colon (principal); Z85.038 Personal history of other malignant neoplasm of large intestine; K64.8 Other hemorrhoids; K21.9 Gastro-esophageal reflux disease without esophagitis; I12.9 Hypertensive chronic kidney disease with stage 1 through stage 4 chronic kidney disease, or unspecified chronic kidney disease; N18.9 Chronic kidney disease, unspecified; G47.33 Obstructive sleep apnea (adult) (pediatric); F17.210 Nicotine dependence, cigarettes, uncomplicated; Z98.0 Intestinal bypass and anastomosis status
CPT/HCPCS: G0105; J2405; J2704

== ENCOUNTER → 2024-11-22 16:26 | Outpatient (CLI) | payer OTHER, SELFPAY ==
[2020-11-28 04:13] VITALS: BMI 24.5
[2024-11-22 17:59] LABS: BUN Creatinine Ratio 11.4 (6-22); Blood Urea Nitrogen 14 mg/dL (9-20); Calcium 8.5 mg/dL (8.4-10.2); Carbon Dioxide 23 mmol/L (22-32); Chloride 108 mmol/L (98-107); Estimated Glomerular Filt Rate > 60 mL/min (>60); Glucose 97 mg/dL (70-100); HEMOLYSIS < 15 (0-50); Potassium 3.8 mmol/L (3.4-5.1); Sodium 136 mmol/L (137-145)
[2024-11-22 18:09] LABS: Creatinine Urine Random 112.84 mg/dL; Protein (Total) Urine Random 67 mg/dL (0-12); Protein Creatinine Ratio Urine 0.59 GRAM/24H
== END ==
PROVIDERS: PCP Physician Assistant; Referring Provider Student in an Organized Health Care Education/Training Program; Visit Provider Student in an Organized Health Care Education/Training Program
DX: N05.9 Unspecified nephritic syndrome with unspecified morphologic changes (principal); E83.40 Disorders of magnesium metabolism, unspecified; R80.9 Proteinuria, unspecified
CPT/HCPCS: 36415; 80048; 82570; 83735; 84156

== ENCOUNTER → 2025-06-06 13:23 | Outpatient (CLI) | payer OTHER, SELFPAY ==
[2020-11-28 04:13] VITALS: BMI 24.5
[2025-06-06 14:31] LABS: Hematocrit 38.0 % (41-53); Hemoglobin 12.8 g/dL (13.5-17.5)
[2025-06-06 14:42] LABS: Blood Urea Nitrogen 17 mg/dL (9-20); Calcium 8.5 mg/dL (8.4-10.2); Carbon Dioxide 22 mmol/L (22-32); Chloride 108 mmol/L (98-107); Estimated Glomerular Filt Rate > 60 mL/min (>60); Glucose 125 mg/dL (70-99); HEMOLYSIS < 15 (0-50); Potassium 4.1 mmol/L (3.4-5.1); Sodium 137 mmol/L (137-145)
[2025-06-06 16:56] LABS: Protein (Total) Urine Random 86 mg/dL (0-12); Protein Creatinine Ratio Urine 1.22 GRAM/24H
== END ==
PROVIDERS: PCP Physician Assistant; Referring Provider Student in an Organized Health Care Education/Training Program; Visit Provider Student in an Organized Health Care Education/Training Program
DX: D70.9 Neutropenia, unspecified (principal); N05.9 Unspecified nephritic syndrome with unspecified morphologic changes; R80.9 Proteinuria, unspecified; D63.1 Anemia in chronic kidney disease; N25.81 Secondary hyperparathyroidism of renal origin
CPT/HCPCS: 36415; 80048; 82570; 83970; 84156; 85014; 85018

== ENCOUNTER 2025-10-14 18:19 | Emergency (ER) | payer OTHER, SELFPAY ==
[2020-11-28 04:13] VITALS: BMI 24.5
[2025-10-14 18:27] VITALS: BP 145/102; PULSE 65; RESP 16; TEMP 37; O2SAT 99; BMI 23.4
--- NOTE | 2025-10-14 18:37 | DI.US.S_ITS ---
PROCEDURE: US SCROTUM INDICATIONS: RT SCROTAL PAIN TECHNIQUE: Real-time scanning was performed of the scrotum and testicles, with image documentation. Color and pulse Doppler interrogation was performed of both testicles. COMPARISON: None. FINDINGS: Right: Testicle is normal in size at 3.8 x 1.9 x 2.8 cm, and homogenous in echotexture. Epididymis is normal in overall size with mild nonspecific heterogeneous echotexture. No hydrocele or varicoceles. Overlying scrotal skin is normal in thickness. Left: Testicle is normal in size at 3.7 x 1.7 x 2.5 cm, and homogeneous in echotexture. Epididymis is normal in overall size and morphology. No hydrocele or varicoceles. Overlying scrotal skin is normal in thickness. Doppler: Color and pulse Doppler demonstrate normal and symmetric arterial flow in both testicles and epididymides. IMPRESSION: No evidence of acute testicular or scrotal abnormality. Dictated by: Regino Yeung M.D. on 10/14/2025 at 19:57 Approved by: Regino Yeung M.D. on 10/14/2025 at 19:59
--- NOTE | 2025-10-15 00:07 | ED.MALEGU ---
HPI - Male Genitourinary General Chief complaint: Urogenital-Male Stated complaint: yest.slipped while carrying heavy object, groin pn Time Seen by Provider: 10/14/25 23:05 Source: patient Mode of arrival: Family Vehicle History of Present Illness HPI Narrative: 55-year-old male earlier today was lifting a toilet into the bathtub and he lost his footing where is like legs spread apart a bit. Now he is having pain in his right testicular region as well as in the periphery region on the medial side of his leg. No other symptoms no other symptoms. Related Data Home Medications ?Medication ?Instructions ?Recorded ?Confirmed bevacizumab 25 mg/mL intravenous 25 mg IV Q3W 03/14/23 11/22/23 solution (Avastin) losartan 25 mg tablet 25 mg PO DAILY 03/14/23 11/22/23 Previous Rx's ?Medication ?Instructions ?Recorded lorazepam 0.5 mg tablet 0.5 mg PO BID PRN anxiety #20 tabs 11/29/20 nitroglycerin 0.6 mg sublingual 0.6 mg sublingual Q5M PRN CHEST 02/19/21 tablet PRESSURE / PAIN #12 tabs pregabalin 75 mg capsule (Lyrica) 75 mg PO BID #60 caps 06/17/23 methocarbamol 500 mg tablet 500 mg PO BEDTIME #60 tabs 09/12/23 Allergies Allergy/AdvReac Type Severity Reaction Status Date / Time No Known Drug Allergies Allergy Verified 10/14/25 18:27 Review of Systems Review of Systems ROS Unobtainable: All systems reviewed & are unremarkable except as noted in HPI and below Patient History Medical History Cervical radiculopathy at C7 Sleep apnea Malignant neoplasm of colon GERD (gastroesophageal reflux disease) Surgical History S/P cervical spinal fusion H/O right hemicolectomy History of surgery of liver Family History Mother Hypertension Coronary artery disease Social History household members: spouse Smoking Status: Current every day smoker alcohol intake: current Smoking Status: Current every day smoker tobacco type: cigarettes alcohol intake frequency: a few times a month Exam Narrative Exam Narrative: General: Patient appears to be in no acute distress, acting appropriately Head: normocephalic, atraumatic, HEENT: Pupils equal round reactive, eyes tracking well, neck supple, no JVD Heart: regular rate and rhythm, no murmurs, rubs, or gallops heard Lungs: clear to auscultation, no adventitious sounds Abdomen: soft , nontender, nondistended, positive bowel sounds Neurological: no focal neurological signs, moving all extremities well, alert and oriented x3, Psych: good judgment ,good insight, mood is normal. gu: No appreciation of any varicocele or hydrocele in the right testicular region. He does have some pain with palpation in the right testicular region as well as lateral to it. Initial Vital Signs Initial Vital Signs: Vital Signs Temperature 98.6 F 10/14/25 18:27 Pulse Rate 65 10/14/25 18:27 Respiratory Rate 16 10/14/25 18:27 Blood Pressure 145/102 H 10/14/25 18:27 Pulse Oximetry 99 10/14/25 18:27 Oxygen Delivery Method Room Air 10/14/25 18:27 Course Orders Ordered: ED Orders 10/14/25 18:37 US scrotum Stat Discontinued Medications Hydrocodone Bitart/Acetaminophen (Hydrocodone/Acet 5/325 Prepack) 1 bottle MISC DIRECTED ONE Stop: 10/15/25 00:10 Last Admin: 10/15/25 00:22 Dose: 1 bottle Documented By: Vital Signs Vital signs: Vital Signs - 8 hr 10/14/25 18:27 10/15/25 00:29 Temperature 98.6 F 98.6 F Pulse Rate 65 66 Respiratory Rate 16 20 Blood Pressure 145/102 H 165/101 H Pulse Oximetry 99 99 Oxygen Delivery Method Room Air Room Air MDM - Male Genitourinary Imaging Data scrotal us: Radiologist's Impression: No evidence of acute testicular or scrotal abnormality. MDM Narrative Medical decision making narrative: 55-year-old male who experienced a groin strain after trying to lift a toilet. Testicular ultrasound did not reveal any acute testicular abnormality or torsion. Patient was given a prepack of [place] and advised to follow up if symptoms worsen. Discharge Plan Departure Patient Disposition: Home Clinical Impression: Strain of right groin Instructions: DI for Groin Strain Prescriptions: No Action lorazepam 0.5 mg tablet 0.5 mg PO BID PRN (Reason: anxiety) Qty: 20 0RF nitroglycerin 0.6 mg Tablet, Sublingual 0.6 mg SUBLINGUAL Q5M PRN (Reason: CHEST PRESSURE / PAIN) Qty: 12 0RF Rx Instructions: do not exceed 3 doses per episode losartan 25 mg tablet 25 mg PO DAILY Avastin 25 mg/mL solution 25 mg IV Q3W methocarbamol 500 mg tablet 500 mg PO BEDTIME Qty: 60 2RF pregabalin [Lyrica] 75 mg capsule 75 mg PO BID Qty: 60 1RF Referrals: Raquel Felder PA-C [Primary Care Provider, Medical] Stand Alone Forms: Patient Portal/API, Work Release Note
[2025-10-15 00:29] VITALS: BP 165/101; PULSE 66; RESP 20; TEMP 37; O2SAT 99
== END 2025-10-15 00:31 | disposition home or self-care (01) ==
PROVIDERS: Emergency Provider Family Medicine; PCP Physician Assistant
DX: S39.011A Strain of muscle, fascia and tendon of abdomen, initial encounter (principal); X50.1XXA Overexertion from prolonged static or awkward postures, initial encounter
CPT/HCPCS: 76870; 93975; 99281; 99283